=== PATIENT | male | born 1950 | race Caucasian/White ===

== ENCOUNTER 2024-02-12 15:19 | Outpatient (OUT) | payer MEDICARE, SELFPAY ==
--- NOTE | 2024-02-12 15:20 | US_ITS ---
The [address] [address] Patient Name: AIRAM ANTONIO MRN: [id number] date: 1950 Sex: M Assigned Patient Location: US Current Patient Location: US Accession/Order Number: [id number] Exam Date: 02/12/2024 16:55 Report Date: 02/12/2024 18:30 At the request of: MO TREJO Procedure: US venous doppler LE RT CLINICAL DATA: Leg pain and swelling PROCEDURE: Right lower extremity venous duplex ultrasound. TECHNIQUE: Lazaro-scale, color flow, and waveform spectral analysis was performed of the right lower extremity. FINDINGS: The right common femoral, profunda femoral, femoral, and popliteal veins were compressible. The saphenous vein was compressible. No venous thrombosis was seen. The veins fill with color Doppler. Augmentation was normal. US/US venous doppler LE RT IMPRESSION: 1. No acute lower extremity deep venous thrombosis. 2. No superficial venous thrombosis. Electronically authenticated by: Vibha RAMOS Date: 02/12/2024 18:30
== END 2024-02-12 15:20 | disposition home or self-care (01) ==
PROVIDERS: Visit Provider Internal Medicine Interventional Cardiology
DX: M79.604 Pain in right leg (principal)
CPT/HCPCS: 93971

== ENCOUNTER 2024-12-10 09:02 | Outpatient (OUT) | payer MEDICARE, SELFPAY ==
--- NOTE | 2024-12-10 09:00 | CA_ITS ---
Patient Name: AIRAM ANTONIO MR#: [id number] : 1950 Exam Date: 12/10/2024 Ordering Doctor: DR MO TREJO M.D. ECHOCARDIOGRAM REPORT PROCEDURE: CA ECHO DOPPLER COMPLETE INDICATIONS: Mitral valve and aortic valve stenosis, smoker, COPD, cardiac stent, hypertension COMPARISON: None. DESCRIPTION: COMPLETE ECHOCARDIOGRAM Real-time transthoracic echocardiography with 2D, M-mode, spectral and color flow Doppler performed. QUALITY: Technical quality was good. LEFT VENTRICLE: Normal chamber size. Moderate to severe concentric left ventricular hypertrophy. Normal systolic function. LV EF: Normal left ventricular ejection fraction, (60%). DIASTOLIC: Grade 2 diastolic dysfunction. ATRIAL SEPTUM: LEFT ATRIUM: Severe dilatation. RIGHT ATRIUM: Normal chamber size. RIGHT VENTRICLE: Normal chamber size. Normal right ventricular systolic function. TRICUSPID VALVE: Normal mobility and thickness. No stenosis with mild regurgitation. Doppler studies reveal mildly (35-45) elevated right sided pressures. RVSP 42 mmHg MITRAL VALVE: Mildly thickened with normal mobility. Moderate mitral valve stenosis. Mean diastolic gradient is 3.4 mmHg at a heart rate of 50 bpm. Mitral valve area by pressure half-time is 1.8 cm?. Moderate mitral annular calcification. Trivial mitral regurgitation. AORTIC VALVE: Normal trileaflet appearance. Moderately calcified aortic valve. Moderately diminished mobility. Doppler velocity suggest moderate aortic valve stenosis. DVI 0.46, SUMMER 1.3 cm?. No aortic regurgitation. AORTIC ROOT: Normal diameter and appearance. Ascending aorta and aortic arch are normal in size. PULMONIC VALVE: Normal thickness and mobility. No stenosis. Trivial regurgitation. PERICARDIUM: No evidence of pericardial effusion. IVC: Not well visualized. PLEURA: CONCLUSION: 1. Moderate to severe concentric ventricular hypertrophy with normal systolic function. Estimated LVEF is 60%. 2. Normal right ventricular size and systolic function. 3. Grade 2 diastolic dysfunction. 4. Moderate aortic valve stenosis. 5. Moderate mitral valve stenosis. 6. Severe left atrial dilatation. 7. Mildly elevated right-sided pressures. Adult Echocardiography Procedure Report Left Ventricle LVEDD (3.7 - 5.6 cm): 4.40 cm LVESD (2.2 - 4.0 cm): 3.05 cm LVIVS thickness (0.6 - 1.2 cm): 1.57 cm LVPW thickness (0.5 - 1.0 cm): 1.36 cm e': 0.07 m/s E - e': 17.62 LVOT Max Gradient: 3.53 mm[Hg] LVOT Area (cm2): 0.94 m/s Peak Velocity (LVOT): 0.94 m/s Mean Velocity (LVOT): 0.66 m/s LVOT Diameter 1.9 cm Left Atrium LA Volume Index (2D A2C): 50.93 ml/m2 Left Atrium Systolic Dimension: 4.39 cm Mitral Valve MV E to A Ratio: 0.99 Mitral Valve A-Wave Peak Velocity: 1.25 m/s Mitral Valve E-Wave Peak Velocity: 1.24 m/s Right Ventricle Aorta AO Root Diam: 3.45 cm Ascending Ao Diam: 3.25 cm Aortic Valve AoV Area (Peak Charli): 1.89 cm2, 1.96 cm2 AoV Area (VTI): 1.99 cm2, 2.39 cm2 Peak Velocity(Antegrade Flow): 1.98 m/s, 1.78 m/s, 2.05 m/s Peak Gradient(Antegrade Flow): 15.75 mm[Hg], 12.71 mm[Hg], 16.89 mm[Hg] Mean Velocity(Antegrade Flow): 1.19 m/s, 1.22 m/s, 1.29 m/s Mean Gradient(Antegrade Flow): 6.99 mm[Hg], 6.83 mm[Hg], 8.12 mm[Hg] Velocity Time Integral: 43.78 cm, 43.19 cm, 52.68 cm Tricuspid Valve Peak Velocity (Regurgitant Flow): 2.89 m/s Pulmonic Valve Mean Gradient: 3.22 mm[Hg] Mean Velocity: 0.83 m/s Peak Velocity: 1.25 m/s, 1.11 m/s Peak Gradient: 6.20 mm[Hg], 4.92 mm[Hg] Right Atrium Right Atrium Systolic Pressure: 50.56 ml, 50.56 ml Dictated by: Gerhard Hess M.D. on 12/10/2024 at 17:37 Approved by: Gerhard Hess M.D. on 12/10/2024 at 17:46
--- OUTSIDE RECORDS SUMMARY | 2024-12-10 09:21 | XMS_ITS | CCD ---
Author Organization [facility] ion [facility] Care Team Providers Care Director Internal Audit Name Role Phone Forest Ramires~[phone] UNKNOWN Unavailable Unavailable BACK, MARC~[phone] UNKNOWN Unavailable U navailable PHYSICIAN, DEFAULT Unavailable Unavailable PHYSICIAN, DEFAULT Unavailable Unavailable BACK, MARC Unavailable Unavailable Jordan Harden Primary Care Provider UnavailJordan Tamayo Primary Care Provider UnavailJordan Tamayo Jr. Primary Care Provider Unavail able Susie Taylor APRN, CNP Primary Care Provider Maylin Larson Unavailable CATRINA Larson Attending Provider NON STAFF Primary Care Provider UnavailDO Alexus Duval Emergency Provider MD Cong Cesar Admit Provider MD Cong Cesar Attending Provider [phone] Conner White APRN, CNP Primary Care Provider Conner White APRN, CNP Primary Care Provider DR VANDANA OLMEDO Primary Care Unavailable BENTLEY PATEL Consulting Unavailable BENTLEY PATEL Admitting Unavailable BENTLEY PATEL Attending Unavailable CELIA SWIFT Consulting Unavailable [facility] Admitting Unavailable [place] Attending Unavailable DR VANDANA OLMEDO Primary Care Unavailable [place], [facility] Consulting Unavailable [place], [facility] Admitting Unavailable [place], EHAB Attending Unavailable DR VANDANA OLMEDO Primary Care Unavailable [place], EHAB Consulting Unavailable TOMÁS, DR GLENNY Dalton Consulting Unavailable NON STAFF Primary Care Unavailable Larson, Maylin Admitting Unavailable Larson, Maylin Attending Unavailable Cong, Cesar Admitting Unavailable Cong, Cesar Attending Unavailable Mischljag, Norma Consulting Unavailable NON STAFF Primary Care Unavailable Franklin Crowder Consulting Unavailable Bowie, Ted Consulting Unavailable Pj Castaneda Consulting Unavail able Halie, Mansi Consulting Unavailable Keanu Diaz Consulting Unavailab Kell Lopez Consulting Unavailable Del Toro, Mariel Consulting Unavailable Piter, Rosangela Najeeb Consulting Unavailab Debra De La Cruz Consulting Unavailable Unavailable Primary Care Provider UnavailRAMSEY Rodriguez Attending Unavailable Dalton ENERGY MANAGER - ENGINEERING PROGRAM ANALYST, Conner M Primary Care Provider Dalton ENERGY MANAGER - ENGINEERING PROGRAM ANALYST, Conner M Primary Care Provider STEPHANIE, CONNER M Referring Unavailable STEPHANIE, CONNER M Primary Care Unavailable STEPHANIE, CONNER M Referring Unavailable STEPHANIE, CONNER M Primary Care Unavailable DENNIS MINA Attending Unavailable STEPHANIE, CONNER M Primary Care Unavailable LINCOLN, ERWIN Montano Admitting Unavailable LINCOLN, ERWIN Montano Attending Unavailable STEPHANIE, CONNER M Primary Care Unavailable STEPHANIE, CONNER M Referring Unavailable STEPHANIE, CONNER M Primary Care Unavailable STEPHANIE, CONNER M Referring Unavailable STEPHANIE, CONNER M Primary Care Unavailable STEPHANIE, CONNER M Referring Unavailable STEPHANIE, CONNER M Primary Care Unavailable STEPHANIE, CONNER M Referring Unavailable STEPHANIE, CONNER M Primary Care Unavailable STEPHANIE, CONNER M Referring Unavailable STEPHANIE, CONNER M Primary Care Unavailable STEPHANIE, CONNER M Primary Care Unavailable STEPHANIE, CONNER M Referring Unavailable STEPHANIE, CONNER M Referring Unavailable STEPHANIE, CONNER M Primary Care Unavailable [facility], [facility] Attending Unavailable [place], [facility] Attending Unavailable Allergies Allergy Classification Reported Allergen(s) Allergy Type Date of Onset Reaction(s) Facility (2 sources) Simvastatin; Translations: [SIMVASTATIN] Drug Allergy 3 [facility] (1 source) Simvastatin Propensity to adverse reactions to drug 3 [employer] Work Phone: (4 sources) Simvastatin Drug Allergy 3 Other (See Comments) [facility] Medications Current Medications Medication Drug Class(es) Dates Sig (Normalized) Sig (Original) acetaminophen 325 mg oral tablet (1 source) Start: 08-27-2019 650 mg, Oral, EVERY 4 HOURS PRN, Fever, For temp greater than 100.5 F (38 C), Starting Mon08/27/19 at 0117 Maximum dose of acetaminophen is 4000 mg from all sources in 24 hours. albuterol 0.83 mg/ml inhalation solution (20 sources) beta2-Adrenergic Agonist Start: 12-05-2023 albuterol (PROVENTIL) (2.5 MG/3ML) 0.083% nebulizer solution Indications: COPD mixed type (HCC) Take 3 mLs by nebulization every 4 hours as needed for Wheezing 120 each 1 12/05/2023 Active Start: 05-30-2023 take 2 puff(s) by inhalation twice daily as needed for wheezing albuterol sulfate HFA (PROVENTIL;VENTOLIN;PROAIR) 108 (90 Base) MCG/ACT inhaler Inhale 2 puffs into the lungs 2 times daily as needed for Wheezing or Shortness of Breath 1 each 1 05/30/2023 Active Start: 07-11-2020 Albuterol Sulf ate Active 1.25 MG CNTNEBULIZ Q4H July 11, 2020 1:00am Start: 08-28-2019 albuterol (PRO VENTIL) (2.5 MG/3ML) 0.083% nebulizer solution Take 3 mLs by nebulization every 4 hours as needed for Wheezing 120 each 1 08/28/2019 Active Start: 08-28-2019 take 2 puff(s) by inhalation twice daily as needed for wheezing albuterol sulfate HFA 108 (90 Base) MCG/ACT inhaler Inhale 2 puffs into the lungs 2 times daily as needed for Wheezing or Shortness of Breath 1 Inhaler 1 08/28/2019 Active Start: 08-28-2019 albuterol (Kwame tolin HFA) 108 (90 Base) MCG/ACT Aero Soln inhaler Inhale 90 mcg daily. 0 08/28/2019 Active Start: 08-27-2019 2.5 mg, Nebuli zation, EVERY 2 HOURS PRN, Wheezing, Starting Mon08/27/19 at 0117 Start: 09-10-2013 End: 08-26-2019 take 2 puff(s) by inhalation twice daily as needed ALBUTEROL SULFATE HFA IN Inhale 2 puffs into the lungs 2 times daily as needed 0 09/10/2013 08/26/2019 Discontinued (LIST CLEANUP) take 2 puff(s) by inhalation every four hours as needed ProAir HFA 108 (90 Base) MCG/ACT 2 puffs as needed Inhalation every 4 hrs Active Albuterol Sulfate (Ventolin Hfa) 90 mcg/actuation Hfa Aerosol Inhaler (3 sources) Start: 08-11-2017 take 1 puff(s) by inhalation every four to six hours Albuterol Sulfate (Ventolin Hfa) 90 mcg/actuation Hfa Aerosol Inhaler Active 2 PUFF INHALATION EVERY 4-6 HOURS August 11, 2017 1:00am albuterol sulfate HFA 108 (90 Base) MCG/ACT inhaler (3 sources) Start: 08-28-2019 take 2 puff(s) by inhalation twice daily as needed for wheezing albuterol sulfate HFA 108 (90 Base) MCG/ACT inhaler Inhale 2 puffs into the lungs 2 times daily as needed for Wheezing or Shortness of Breath 1 Inhaler 1 08/28/2019 Active amLODIPine 10 mg oral tablet (20 sources) Dihydropyridine Calcium Channel Kell Start: 08-11-2017 take 1 tablet by mouth once daily for hypertension amLODIPine (NORVASC) 10 MG tablet Indications: Primary hypertension , Coronary artery disease 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 angina pectoris , COPD mixed type (HCC) Take 1 tablet by mouth daily For hypertension , hx CAD 90 tablet 3 12/05/2023 Active azithromycin 500 mg oral tablet (2 sources) Macrolide Antimicrobial Start: 08-28-2019 End: 08-31-2019 take 1 tablet by mouth once daily azithromycin (ZITHROMAX) 500 MG tablet Take 1 tablet by mouth daily for 3 days 1 packet 0 08/28/2019 08/31/2019 Active calcium chloride 0.0014 meq/ml / potassium chloride 0.004 meq/ml / sodium chloride 0.103 meq/ml / sodium lactate 0.028 meq/ml injectable solution (1 source) Start: 05-08-2024 IntraVENous, at 100 mL/hr, CONTINUOUS, Starting on Mon05/08/24 at 1030, Pre-op (day of surgery) carvedilol 25 mg oral tablet (20 sources) alpha-Adrenergic Kell, beta-Adrenergic Kell Start: 08-02-2024 take 1 tablet by mouth twice daily carvedilol (COREG) 25 MG tablet Take 1 tablet by mouth 2 times daily Coronary artery disease 90 tablet 1 08/02/2024 Active Start: 10-10-2023 take 1 tablet by michael th twice daily carvedilol (COREG) 25 MG tablet Take 1 tablet by mouth 2 times daily Coronary artery disease 90 tablet 3 10/10/2023 Suspended Start: 10-06-2021 take 2 tablets by mo uth twice daily carvedilol (COREG) 12.5 MG tablet Take 2 tablets by mouth 2 times daily 60 tablet 2 10/06/2021 Active Start: 07-11-2020 take 25 mg by mouth twice orly y Carvedilol Active 25 MG PO Twice daily July 11, 2020 1:00am Start: 08-27-2019 take 12.5 mg by mout h twice daily at mealtime 12.5 mg, Oral, 2 TIMES DAILY WITH MEALS, First dose on Mon08/27/19 at 0800 Administer with food to minimize the risk of orthostatic hypotension Start: 08-11-2017 End: 07-11-2020 take 2.5 mg by mouth twice daily Carvedilol Discontinu ed 2.5 MG PO Twice daily August 11, 2017 1:00am July 11, 2020 12:23pm take 1 tablet by michael th once daily carveDILOL 12.5 MG tablet Take 12.5 mg by mouth daily. 0 Active Carvedilol Activ e cholecalciferol 0.05 mg oral capsule (11 sources) Vitamin D Start: 05-25-2023 take 1 capsule by mouth once daily Cholecalciferol (VITAMIN D3) 50 MCG (1999 UT) CAPS Take 1 capsule by mouth daily 30 capsule 3 05/25/2023 Active Cholecalciferol (VITAMIN D3) 50 MCG (1999 UT) CAPS Take by mouth daily 0 Active ciprofloxacin 250 mg oral tablet (1 source) Quinolone Antimicrobial Start: 02-21-2023 End: 02-28-2023 take 1 tablet by mouth twice daily for urinary tract infection ciprofloxacin (CIPRO) 250 MG tablet Take 1 tablet by mouth 2 times daily for 7 days For UTI and early diverticulitis 14 tablet 0 02/21/2023 02/28/2023 Active cloNIDine hydrochloride 0.1 mg oral tablet (20 sources) Central alpha-2 Adrenergic Agonist Start: 03-26-2024 take 0.2 mg by mouth once 0.2 mg, Oral, ONCE, 1 dose, On Mon03/26/24 at 1100 Start: 01-27-2022 take 1 tablet by michael th twice daily for hypertension cloNIDine (CATAPRES) 0.2 MG tablet Indications: Primary hypertension , 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 take 1 tablet by mouth once orly y cloNIDine (CATAPRES) 0.2 MG tablet Take 1 tablet by mouth daily 0 Active cloNIDine HCl Ac tive 0.4 ml enoxaparin sodium 100 mg/ml prefilled syringe (1 source) Low Molecular Weight Heparin Start: 08-27-2019 enoxaparin (LOVENOX) injection 40 mg furosemide 20 mg oral tablet (16 sources) Loop Diuretic Start: 06-14-2024 take 1 tablet by mouth once daily furosemide (LASIX) 20 MG tablet Take 1 tablet by mouth daily 30 tablet 06/14/2024 Active Start: 05-24-2022 furosemide (LA SIX) 20 MG tablet hydrALAZINE hydrochloride 100 mg oral tablet (20 sources) Arteriolar Vasodilator Start: 12-05-2023 take 1.5 tablets by mouth three times daily hydrALAZINE (APRESOLINE) 100 MG tablet Indications: Primary hypertension , Coronary artery disease 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 angina pectoris Take 1.5 tablets by mouth 3 times daily 270 tablet 1 12/05/2023 Active Start: 07-11-2020 hydrALAZINE (A PRESOLINE) injection 10 mg Start: 08-27-2019 take 100 mg by mouth three times daily 100 mg, Oral, 3 TIMES DAILY, First dose on Mon08/27/19 at 0900 Start: 08-26-2019 10 mg, Intrave nous, EVERY 6 HOURS PRN, High Blood Pressure, SBP above 160, Starting Mon08/27/19 at 0117 Start: 09-30-2014 take 100 mg by mouth three times daily Hydralazine Active 100 MG PO Three times daily July 11, 2020 1:00am take 1 tablet by michael th twice daily hydrALAZINE 100 MG tablet Take 100 mg by mouth 2 times daily. 0 Active levoFLOXacin 500 mg oral tablet (2 sources) Quinolone Antimicrobial Start: 08-27-2019 500 mg, Oral, DAILY, First d ose on Mon08/27/19 at 0900 Do not take with dairy products or calcium-fortified juices. Tube feeding (TF) interaction, obtain physician order to manage. Recommend holding TF for 2 hrs before and 2 hrs after dose. Due to decreased absorption do not give by J tube. 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 methylPREDNISolone sodium (SOLU-MEDROL) injection 40 mg (1 source) Start: 08-27-2019 End: 08-28-2019 methylPREDNISolone sodium (SOLU-MEDROL) injection 40 mg nirmatrelvir/ritonavir (PAXLOVID, 300/100,) 20 x 150 MG & 10 x 100MG TBPK (1 source) Start: 03-31-2022 End: 04-05-2022 nirmatrelvir/ritonavir (PAXLOVID, 300/100,) 20 x 150 MG & 10 x 100MG TBPK Indications: URI, acute , Cough with exposure to COVID-19 virus Take 3 tablets (two 150 mg nirmatrelvir and one 100 mg ritonavir tablets) by mouth every 12 hours for 5 days. 30 tablet 0 03/31/2022 04/05/2022 Active nitroglycerin 0.4 mg sublingual tablet (7 sources) Nitrate Vasodilator Start: 12-17-2013 nitroGLYCERIN (NITROSTAT) 0.[address] 1 tablet under the tongue every 5 minutes as needed. 25 tablet 1 12/17/2013 Active NONFORMULARY (1 source) NONFORMULARY Blo od thinner 0 Active prasugrel 10 mg oral tablet (6 sources) P2Y12 Platelet Inhibitor Start: 08-27-2019 take 10 mg by mouth once daily 10 mg, Oral, DAILY, First dose on Mon08/27/19 at 0900 predniSONE 10 mg oral tablet (4 sources) Start: 08-02-2022 take 2 tablets by mouth once daily at mealtime, then take 1 tablet by mouth once daily predniSONE (DELTASONE) 10 MG tablet Indications: Acute pain of right knee , Primary osteoarthritis of right knee Take 2 pills by mouth daily with food x 4 days then decrease to 1 pill daily x 4 days for osteoarthritis/effusio n or right knee 10 tablet 0 08/02/2022 Active Start: 08-28-2019 End: 09-02-2019 take 1 tablet by mouth once daily predniSONE (DELTASONE) 20 MG tablet Take 1 tablet by mouth daily for 5 days 5 tablet 0 08/28/2019 09/02/2019 Active tamsulosin hydrochloride 0.4 mg oral capsule (5 sources) alpha-Adrenergic Kell Start: 10-01-2024 take 1 capsule by mouth once daily tamsulosin (FLOMAX) 0.4 MG capsule Take 1 capsule by mouth daily For BPH with LUTS 30 capsule 1 10/01/2024 Active Start: 05-18-20[address] [facility] once daily tamsulosin (FLOMAX) 0.4 MG capsule Take 1 capsule by mouth daily For difficulty urinating 90 capsule 3 05/18/2023 Suspended Start: 02-21-2023 take 1 capsule by mo [facility] once daily tamsulosin (FLOMAX) 0.4 MG capsule Take 1 capsule by mouth daily For difficulty urinating 30 capsule 0 02/21/2023 Active thiamine 50 mg oral tablet (3 sources) Start: 10-06-2021 take 1 tablet by mouth once daily thiamine 50 MG tablet Indications: Mild alcohol use disorder, in controlled environment Take 1 tablet by mouth daily Mild alcohol use 14 tablet 0 10/06/2021 Active Completed/Discontinued Medications Medication Drug Class(es) Dates Sig (Normalized) Sig (Original) albuterol 0.833 mg/ml / ipratropium bromide 0.167 mg/ml inhalant solution (3 sources) Anticholinergic, beta2-Adrenergic Agonist Start: 08-29-2019 End: 08-29-2019 ipratropium-albute rol (DUONEB) 0.5-2.5 (3) MG/3ML nebulizer solution Start: 08-27-2019 1 ampule, Inha lation, EVERY 4 HOURS WHILE AWAKE, First dose on Mon08/27/19 at 0900 Start: 08-26-2019 End: 08-26-2019 ipratropium-albuterol (DUONE B) nebulizer solution 1 ampule aspirin 81 mg chewable tablet (20 sources) Platelet Aggregation Inhibitor, Nonsteroidal Anti-inflammatory Drug Start: 02-14-2021 End: 02-14-2021 aspirin chewable tablet 324 mg Start: 07-11-2020 End: 07-11-2020 aspirin chewable tablet 324 mg Start: 08-11-2017 take 1 tablet by mouth once da ra Aspirin (Aspir-81) 81 mg Tablet,Delayed Release (Dr/Ec) Active 81 MG PO Daily August 11, 2017 1:00am atorvastatin 40 mg oral tablet (20 sources) HMG-CoA Reductase Inhibitor Start: 02-09-2024 take 1 tablet by mouth once daily for hyperlipidemia atorvastatin (LIPITOR) 40 MG tablet Take 1 tablet by mouth daily For high cholesterol and heart disease 90 tablet 1 02/09/2024 Suspended Start: 07-12-2020 End: 01-27-2022 take 40 mg by mouth once daily Atorvastatin Active 40 MG PO Daily January 27, 2022 12:00am Start: 08-11-2017 End: 09-30-2019 take 20 mg by mouth once daily Atorvastatin Discontinu ed 20 MG PO Daily August 11, 2017 1:00am September 30, 2019 1:08pm take 1 tablet by michael th every twenty-four hours Atorvastatin Calcium 10 MG 1 tablet Orally Once a day Active famotidine 20 mg oral tablet (3 sources) Histamine-2 Receptor Antagonist Start: 08-27-2019 End: 07-11-2020 famotidine (PEPCID) 20 MG tablet Take 20 mg by mouth 0 08/27/2019 07/11/2020 Discontinued (LIST CLEANUP) gadobenate dimeglumine (MULTIHANCE) injection 20 mL (1 source) Start: 09-12-2022 End: 09-12-2022 gadobenate dimeglumine (MULTIHANCE) injection 20 mL hydroCHLOROthiazide 12.5 mg oral capsule (4 sources) Thiazide Diuretic Start: 08-11-2017 End: 07-11-2020 take 100 mg by mouth twice daily Hydrochlorothiazide Discontinued 100 MG PO Twice daily August 11, 2017 1:00am July 11, 2020 12:23pm hydroCHLOROthiaz rick Active loratadine 10 mg oral tablet (4 sources) Start: 08-11-2017 End: 07-11-2020 take 10 mg by mouth once daily Loratadine Discontinued 10 MG PO Daily August 11, 2017 1:00am July 11, 2020 12:25pm losartan potassium 100 mg oral tablet (3 sources) Angiotensin 2 Receptor Kell Start: 08-11-2017 End: 07-11-2020 take 100 mg by mouth once daily Losartan Discontinued 100 MG PO Daily August 11, 2017 1:00am July 11, 2020 12:25pm methylPREDNISolone 125 mg injection (1 source) Corticosteroid Start: 08-26-2019 End: 08-26-2019 methylPREDNISolone sodium (SOLU-MEDROL) injection 125 mg Start: 08-26-2019 End: 08-26-2019 methylPREDNISolone sodium (S PATRICK-MEDROL) injection 125 mg 2 ml ondansetron 2 mg/ml injection (5 sources) Serotonin-3 Receptor Antagonist Start: 08-27-2019 End: 02-14-2021 ondansetron (ZOFRAN) 4 MG/2ML injection Infuse 4 mg intravenously 0 08/27/2019 02/14/2021 Discontinued (LIST CLEANUP) potassium chloride 10 meq extended release oral tablet (1 source) Start: 08-27-2019 End: 08-27-2019 potassium chloride (KLOR-CON) extended release tablet 40 mEq Start: 08-27-2019 End: 08-27-2019 potassium chloride (KLOR-CON ) extended release tablet 40 mEq 50 ml sodium chloride 9 mg/m l injection (4 sources) Start: 07-11-2020 End: 07-11-2020 0.9 % sodium chloride bolus Start: 08-27-2019 10 mL, Intrave nous, EVERY 12 HOURS SCHEDULED (2 times per day), First dose on Mon08/27/19 at 0900 Start: 08-27-2019 take 10 mL intraveno us route once as needed 10 mL, Intravenous, PRN, Line Care, After every IV line use, Starting Mon08/27/19 at 0117 Start: 08-26-2019 End: 08-27-2019 0.9 % sodium chloride infusi on Problems Active Problems Problem Classification Problem Date Documented Da te Episodic/Chronic Acute myocardial infarction (20 sources) Myocardial infarction; Translations: [Non-ST elevation (NSTEMI) myocardial infarction] Onset: 04-07-2021 04-07-2021 Chronic Anxiety disorders (20 sources) Panic attack; Translations: [Panic disorder [episodic paroxysmal anxiety]] 10-15-2010 Chronic Cardiac dysrhythmias (2 sources) Bradycardia, unspecified; Translations: [Bradycardia, unspecified] Onset: 10-16-2024 Episodic Cataract (2 sources) Age-related nuclear cataract of right eye; Translations: [Age-related nuclear cataract, right eye] Onset: 02-04-2020 02-04-2020 Chronic Conditions associated with dizziness or vertigo (3 sources) Dizziness; Translations: [Dizziness and giddiness] 09-30-2019 Episodic Coronary atherosclerosis and other heart disease (20 sources) Coronary arteriosclerosis; Translations: [Acute coronary syndrome] Onset: 07-30-2017 07-30-2017 Chronic Diabetes mellitus without complication (1 source) Prediabetes; Translations: [Prediabetes] Episodic Disorders of lipid metabolism (20 sources) Hyperlipidemia; Translations: [Hyperlipidemia, unspecified] Onset: 10-15-2010 10-15-2010 Chronic Essential hypertension (20 sources) Hypertensive disorder; Translations: [Essential (primary) hypertension] Onset: 07-30-2017 Resolved: 01-25-2022 07-30-2017 Chronic Genitourinary symptoms and ill-defined conditions (2 sources) Dribbling of urine; Translations: [Post-void dribbling] Onset: 10-01-2024 10-01-2024 Chronic Genitourinary symptoms and ill-defined conditions (3 sources) Increased frequency of urination; Translations: [Frequency of micturition] Onset: 10-01-2024 Episodic Heart valve disorders (3 sources) Rheumatic tricuspid insufficiency; 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] Onset: 09-05-2022 Chronic Hyperplasia of prostate (9 sources) Benign prostatic hypertrophy with outflow obstruction; Translations: [Benign prostatic hyperplasia with lower urinary tract symptoms] Onset: 04-13-2023 04-13-2023 Chronic Hypertension with complications and secondary hypertension (9 sources) Hypertensive urgency ; Translations: [Hypertensive urgency] Onset: 08-10-2022 07-11-2020 Chronic Nutritional deficiencies (2 sources) Vitamin D deficiency; Translations: [Vitamin D deficiency, unspecified] Onset: 02-06-2024 Chronic Osteoarthritis (4 sources) Osteoarthritis of right knee joint; Translations: [Unilateral primary osteoarthritis, right knee] Onset: 11-01-2022 Chronic Other aftercare (1 source) 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; Translations: [LAN ENGINEER CURRENT USE OF ASPIRIN] Onset: 11-01-2022 Episodic Other aftercare (1 source) Other intermodal customer service (current) drug therapy; Translations: [OTH LAN ENGINEER CURRENT DRUG THERAPY] Onset: 11-01-2022 Episodic Other circulatory disease (1 source) H/O: hypertension; Translations: [Personal history of other diseases of the circulatory system] Episodic Other connective tissue disease (4 sources) Thigh pain; Translations: [Pain in left thigh] Episodic Other connective tissue disease (3 sources) Muscle pain; Translations: [Myalgia, unspecified site] Episodic Other connective tissue disease (1 source) Enthesopathy; Translations: [Enthesopathy, unspecified] Episodic Other lower respiratory disease (1 source) Dyspnea; Translations: [Shortness of breath] Episodic Other nervous system disorders (20 sources) Cataplexy; Translations: [Narcolepsy with cataplexy] Onset: 04-15-2013 04-15-2013 Chronic Other nervous system disorders (3 sources) Other chronic pain; Translations: [Other chronic pain] Onset: 08-19-2024 Chronic Other non-traumatic joint disorders (1 source) Shoulder pain; Translations: [Pain in left shoulder] Episodic Other non-traumatic joint disorders (1 source) Pain in right knee; Translations: [Pain in joint, lower leg] Episodic Other non-traumatic joint disorders (1 source) Chronic ankle pain; Translations: [Pain in right ankle and joints of right foot] 08-19-2024 Episodic Other non-traumatic joint disorders (3 sources) Pain in right ankle and joints of right foot; Translations: [Pain in right ankle and joints of right foot] Onset: 08-19-2024 Episodic Other nutritional; endocrine; and metabolic disorders (2 sources) Body mass index 40+ - severely obese; Translations: [Body mass index (BMI) 40.0-44.9, adult] Chronic Other nutritional; endocrine; and metabolic disorders (2 sources) Body mass index (BMI) 40.0-44.9, adult; Translations: [Body mass index (BMI) 40.0-44.9, adult] Onset: 01-25-2022 Resolved: 01-25-2022 Chronic Other screening for suspected conditions (not mental disorders or infectious disease) (19 sources) Patient encounter status; Translations: [Encounter for screening for diseases of the blood and blood-forming organs and certain disorders involving the immune mechanism] Onset: 02-06-2024 Resolved: 06-07-2024 Episodic Other upper respiratory infections (20 sources) Chronic sinusitis; Translations: [Chronic sinusitis, unspecified] 03-16-2015 Chronic Other upper respiratory infections (1 source) Acute upper respiratory infection; Translations: [Acute upper respiratory infection, unspecified] Episodic Pneumonia (except that caused by tuberculosis or sexually transmitted disease) (1 source) Bronchopneumonia; Translations: [Bronchopneumonia] Episodic Residual codes; unclassified (4 sources) Obstructive sleep apnea syndrome; Translations: [Obstructive sleep apnea (adult) (pediatric)] 01-27-2022 Chronic Residual codes; unclassified (5 sources) Obstructive sleep apnea (adult) (pediatric); Translations: [Obstructive sleep apnea (adult)(pediatric)] Onset: 01-25-2022 Resolved: 01-25-2022 Chronic Residual codes; unclassified (1 source) Sleep apnea, unspecified; Translations: [SLEEP APNEA UNSPECIFIED] Onset: 11-01-2022 Chronic Residual codes; unclassified (1 source) Dependence on other enabling machines and devices; Translations: [Dependence on other enabling machines and devices] Onset: 01-27-2022 Chronic Residual codes; unclassified (1 source) Idiopathic sleep related non-obstructive alveolar hypoventilation; Translations: [Idiopathic sleep related nonobstructive alveolar hypoventilation] 01-25-2024 Chronic Residual codes; unclassified (1 source) Idiopathic sleep related nonobstructive alveolar hypoventilation; Translations: [Idiopathic sleep related non-obstructive alveolar hypoventilation] 01-25-2024 Chronic Rheumatoid arthritis and related disease (1 source) Ankylosing spondylitis; Translations: [Ankylosing spondylitis lumbar region] Chronic Spondylosis; intervertebral disc disorders; other back problems (1 source) Lumbar radiculopathy; Translations: [Radiculopathy, lumbar region] Episodic Sprains and strains (1 source) Strain of thoracic region; Translations: [Strain of muscle and tendon of back wall of thorax, initial encounter] Episodic Syncope (20 sources) Syncope; Translations: [Syncope and collapse] Onset: 11-02-2022 08-11-2017 Episodic Past or Other Problems Problem Classification Problem Date Documented Da te Episodic/Chronic Abdominal pain (20 sources) Suprapubic pain; Translations: [Pelvic and perineal pain] Onset: 05-02-2012 05-02-2012 Episodic Chronic obstructive pulmonary disease and bronchiectasis (20 sources) Acute exacerbation of chronic obstructive airways disease; Translations: [Chronic obstructive pulmonary disease with (acute) exacerbation] Onset: 08-26-2019 Resolved: 03-15-2023 08-26-2019 Chronic Inflammatory conditions of male genital organs (20 sources) Acute prostatitis; Translations: [Acute prostatitis] Onset: 05-02-2012 Resolved: 05-03-2012 05-03-2012 Episodic Nonspecific chest pain (20 sources) Chest pain; Translations: [Chest pain, unspecified] Onset: 08-08-2012 07-30-2017 Episodic Other connective tissue disease (2 sources) Other specified soft tissue disorders; Translations: [Other specified soft tissue disorders] Onset: 02-12-2024 Episodic Residual codes; unclassified (1 source) Other amnesia; Translations: [Other amnesia] Onset: 02-06-2024 Episodic Unclassified (9 sources) Onset: 12-02-2023 12-02-2023 Results Test Name Value Interpretation Reference Range Facility Office Visiton 10-16-2024 Follow-up visit [id number] Keanu Antonio 1950 M Date Provider Department Center 10/16/2024 Abdulkadir-MO [facility]RE[facility] Family History Problem Relation Age of Onset Other Mother Family Status - Relation Status Age at Mother Level of Service:03495 ID OFFICE/OUTPATIENT ESTABLISHED MOD MDM 30 MIN Normal [facility] Cult,Urineon 10-03-2024 Cult,Urine Specimen Description .CLEAN CATCH URINE Special Requests Site: Urine Culture NO GROWTH Report Status FINAL 10/03/2024 Normal [facility] Comment on above: Performed By: #### U RC #### [id number] [place], [place] [id number] [employer]: Alfred Ozuna MD [facility] [address] [place] [address] [place] [address] [employer] Operator: Jose Carlos MD Comp Metabolic Profon 2024 Albumin [Mass/Vol] 4.0 g/dL Normal 3.5-5.2 [facility] Comment on above: Performed By: #### C DP, CP #### [facility] [address] [place] [address] [place] [address] [employer] Operator: Jose Carlos MD #### PSAS #### [address] [place] [address] [employer]: Alfred Ozuna MD Albumin/Glob Ratio 1.3 Normal 1.0-2.5 [facility] Comment on above: Performed By: #### C DP, CP #### [address] [place] [address] [employer]: Jose Carlos MD #### PSAS #### [address] [address] [place] [address] [employer]: Alfred Ozuna MD Alkaline Phos 55 U/L Normal 40-129 [facility] Comment on above: Performed By: #### C DP, CP #### [facility] [address] [place], [place] [id number] [employer]: Jose Carlos MD #### PSAS #### [address] [address] [employer]: Alfred Ozuna MD ALT [Catalytic activity/Vol] 21 U/L Normal 10-50 [facility] Comment on above: Performed By: #### C DP, CP #### [facility] [address] [place], [place] [address] [employer]: Jose Carlos MD #### PSAS #### [address] [address] [employer]: Alfred Ozuna MD Anion gap [Moles/Vol] 9 mmol/L Normal 9-16 [facility] Comment on above: Performed By: #### C DP, CP #### [address] [place], [place] [address]23[address] [employer]: Jose Carlos MD #### PSAS #### [address] [address] [employer]: Alfred Ozuna MD AST [Catalytic activity/Vol] 25 U/L Normal 10-50 [facility] Comment on above: Performed By: #### C DP, CP #### [facility] [address] [place] [address] [employer] Operator: Jose Carlos MD #### PSAS #### [address] [address] [employer]: Alfred Ozuna MD Bilirubin [Mass/Vol] 0.3 mg/dL Normal 0.00-1.20 [facility] Comment on above: Performed By: #### C DP, CP #### [facility] [address] [place], [place] 6878883 [employer]: Jsoe Carlos MD #### PSAS #### [address] [id number] [employer] Operator: Alfred Ozuna MD BUN/CRE Ratio 14 Normal 9-20 [facility] Comment on above: Performed By: #### C DP, CP #### [facility] [address] [place], [place] 7788183 [employer] Operator: Jose Carlos MD #### PSAS #### [address] [address] [employer]: Alfred Ozuna MD Calcium [Mass/Vol] 9.5 mg/dL Normal 8.6-10.4 [facility] Comment on above: Performed By: #### C DP, CP #### [facility] [address] [place], [place] [phone] [employer]: Jose Carlos MD #### PSAS #### [address] [address] [employer]: Alfred Ozuna MD Chloride [Moles/Vol] 104 mmol/L Normal 98-107 [facility] Comment on above: Performed By: #### C DP, CP #### [facility] [address] [place], [place] 8[address]83 [employer]: Jose Carlos MD #### PSAS #### [address] [address] [employer]: Alfred Ozuna MD CO2 [Moles/Vol] 26 mmol/L Normal 20-31 [facility] Comment on above: Performed By: #### C DP, CP #### [address] [place], [place] [id number] [employer] Operator: Jose Carlos MD #### PSAS #### [facility] [address] [place], [place] [phone] [employer] Operator: Alfred Ozuna MD Creatinine [Mass/Vol] 1.3 mg/dL High 0.70-1.20 [facility] Comment on above: Performed By: #### C COLLEEN, CP #### [address] [place], [place] 9188983 [employer]: Jose Carlos MD #### PSAS #### [id number] [place], [place] [phone] [employer] Operator: Alfred Ozuna MD GFR/1.73 sq M.predicted among non-blacks MDRD (S/P/Bld) [Vol rate/Area] 59 mL/min/{1.73_m2} Low >60 [facility] Comment on above: Result Comment: These results are not intended for use in patients <18 years of age. eGFR results are calculated without a race factor using the 2020 CKD-EPI equation. Careful clinical correlation is recommended, particularly when comparing to results calculated using previous equations. The CKD-EPI equation is less accurate in patients with extremes of muscle mass, extra-renal metabolism of creatine, excessive creatine ingestion, or following therapy that affects renal tubular secretion. Performed By: #### C COLLEEN, CP #### [address] [place], [place] [phone] [employer]: Jose Carlos MD #### PSAS #### [facility] [address] [place], [place] 401[address] [employer]: Alfred Ozuna MD Glucose [Mass/Vol] 91 mg/dL Normal 74-99 [facility] Comment on above: Performed By: #### C COLLEEN, CP #### [address] [place], [place] 4371383 [employer]: Jose Carlos MD #### PSAS #### [facility] [address] [place], [place] 7505408 [employer]: Alfred Ozuna MD Potassium [Moles/Vol] 4.4 mmol/L Normal 3.7-5.3 [facility] Comment on above: Performed By: #### C DP, CP #### [facility] [address] [place], [place] 0825[address] [employer]: Jose Carlos MD #### PSAS #### [address] [address] [employer]: Alfred Ozuna MD Protein [Mass/Vol] 7.1 g/dL Normal 6.6-8.7 [facility] Comment on above: Performed By: #### C DP, CP #### [address] [place], [place] 413[address] [employer]: Jose Carlos MD #### PSAS #### [address] [address] [employer]: Alfred Ozuna MD Sodium [Moles/Vol] 139 mmol/L Normal 136-145 [facility] Comment on above: Performed By: #### C DP, CP #### [address] [place], [place] 4232383 [employer]: Jose Carlos MD #### PSAS #### [address] [address] [employer] Operator: Alfred Ozuna MD Urea nitrogen [Mass/Vol] 18 mg/dL Normal 8-23 [facility] Comment on above: Performed By: #### C DP, CP #### [address] [place], [place] 0812[address] [employer] Operator: Jose Carlos MD #### PSAS #### [address] [address] [employer]: Alfred Ozuna MD [facility] Metabolic [facility] 10-02-2024 Albumin [Mass/Vol] 4 g/dL 3.5 - 5.2 g/dL [facility] Albumin/Globulin [Mass ratio] 1.3 {ratio} 1.0 - 2.5 [facility] ALP [Catalytic activity/Vol] 55 U/L 40 - 129 U/L [facility] ALT [Catalytic activity/Vol] 21 U/L 10 - 50 U/L [facility] Anion gap [Moles/Vol] 9 mmol/L 9 - 16 mmol/L [facility] AST [Catalytic activity/Vol] 25 U/L 10 - 50 U/L [facility] Bilirubin [Mass/Vol] 0.3 mg/dL 0.00 - 1.20 mg/dL [facility] Calcium [Mass/Vol] 9.5 mg/dL 8.6 - 10. 4 mg/dL [facility] Chloride [Moles/Vol] 104 mmol/L 98 - 10 7 mmol/L [facility] CO2 [Moles/Vol] 26 mmol/L 20 - 31 mmol/L [facility] Creatinine [Mass/Vol] 1.3 mg/dL High 0.70 - 1.20 mg/dL [facility] Est, Glom Filt Rate 59 Low - PINF [facility] Comment on above: These results are not intended for use in patients <18 years of age. eGFR results are calculated without a race factor using the 2020 CKD-EPI equation. Careful clinical correlation is recommended, particularly when comparing to results calculated using previous equations. The CKD-EPI equation is less accurate in patients with extremes of muscle mass, extra-renal metabolism of creatine, excessive creatine ingestion, or following therapy that affects renal tubular secretion. Glucose [Mass/Vol] 91 mg/dL 74 - 99 mg/dL [facility] Interpretation and review of laboratory results Abnormal [facility] Potassium [Moles/Vol] 4.4 mmol/L 3.7 - 5.3 mmol/L [facility] Protein [Mass/Vol] 7.1 g/dL 6.6 - 8.7 g/dL [facility] Sodium [Moles/Vol] 139 mmol/L 136 - 145 mmol/L [facility] Urea nitrogen [Mass/Vol] 18 mg/dL 8 - 23 mg/d L [facility] Urea nitrogen/Creatinine [Mass ratio] 14 mg/mg 9 - 20 [facility] PSA, Screeningon 10-02-2024 Prostatic Spec. Ag 1.81 ng/mL Normal 0.00-4.00 [facility] Comment on above: Result Comment: The [employer] ECLIA assay is used. Results obtained with different assay methods cannot be used interchangeably. Performed By: #### C DP CP #### [facility] [address] [place] [address] [employer]: Jose Carlos MD #### PSAS #### [facility] [address] [place] [address] [employer] Operator: Alfred Ozuna MD CBC with Auto Differentialon 10-01-2024 Basophils (Bld) [#/Vol] 0.03 10*3/uL [facility] Basophils/100 WBC (Bld) 1 % 0 - 2 % B [facility] Eosinophils (Bld) [#/Vol] 0.26 10*3/uL [facility] Eosinophils/100 WBC (Bld) 4 % 1 - 4 % [facility] Erythrocyte distribution width (RBC) [Ratio] 13.5 % 11.8 - 14.4 % [facility] Hematocrit (Bld) [Volume fraction] 45.4 % 40.7 - 50.3 % [facility] Hemoglobin (Bld) [Mass/Vol] 14.7 g/dL 13.0 - 17.0 g/dL [facility] Immature granulocytes (Bld) [#/Vol] [facility] Immature granulocytes/100 WBC (Bld) 0 % 0 [facility] Interpretation and review of laboratory results Abnormal [facility] Lymphocytes/100 WBC (Bld) 19 % Low 24 - 43 % [facility] Lymphocytes/100 WBC (Bld) 1.15 % [facility] MCH (RBC) [Entitic mass] 29.8 pg 25. 2 - 33.5 pg [facility] MCHC (RBC) [Mass/Vol] 32.4 g/dL 28.4 - 34.8 g/dL [facility] MCV (RBC) [Entitic vol] 92.1 fL 82.6 - 102.9 fL [facility] Monocytes/100 WBC (Bld) 10 % 3 - 12 % B on [facility] Monocytes/100 WBC (Bld) 0.64 % B on [facility] Neutrophils/100 WBC (Bld) 66 % High 36 - 65 % [facility] Nucleated RBC/100 WBC (Bld) [Ratio] 0 % 0.0 per 100 WBC [facility] Platelet mean volume (Bld) [Entitic vol] 10.4 fL 8.1 - 13.5 fL [facility] Platelets (Bld) [#/Vol] 312 10*3/uL [facility] RBC (Bld) [#/Vol] 4.93 10*6/uL 4.21 - 5.7 7 m/uL [facility] Segmented neutrophils/100 WBC (Bld) 4.04 % [facility] WBC other (Bld) [#/Vol] 6.1 B on [facility] CBC with Diffon 10-01-2024 Abs. Basophil 0.03 k/uL Normal 0.00-0.20 [facility] Comment on above: Performed By: #### C DP, CP #### [facility] [address] [place] [address] [employer]: Jose Carlos MD #### PSAS #### [address] [place] [address] [employer] Operator: Alfred Ozuna MD Abs.Imm.Granulocyte <0.03 Normal 0.00-0.30 [facility] Comment on above: Performed By: #### C DP, CP #### [facility] [address] [place], [place] 8[address]83 [employer] Operator: Jose Carlos MD #### PSAS #### [id number] [employer] Operator: Alfred Ozuna MD Abs.Neutrophil (Seg) 4.04 k/uL Normal 1.50-8.10 [facility] Comment on above: Performed By: #### C DP, CP #### [address] [place] [id number] [employer] Operator: Jose Carlos MD #### PSAS #### [id number] [employer] Operator: Alfred Ozuna MD Basophils/100 WBC (Bld) 1 % Normal 0-[address] [facility] Comment on above: Performed By: #### C DP, CP #### [address] [place] [address] [employer] Operator: Jose Carlos MD #### PSAS #### [place] [address] [employer] Operator: Alfred Ozuna MD Eosinophils (Bld) [#/Vol] 0.26 10*3/uL Normal 0.00-0.44 [facility] Comment on above: Performed By: #### C DP, CP #### [address] [place] [id number] ( [employer] Operator: Jose Carlos MD #### PSAS #### [place] [address] [employer] Operator: Alfred Ozuna MD Eosinophils/100 WBC (Bld) 4 % Normal 1-4 [facility] Comment on above: Performed By: #### C DP, CP #### [address] [place] [id number] [employer] Operator: Jose Carlos MD #### PSAS #### [address] [place], [place] 2874708 [employer] Operator: Alfred Ozuna MD Erythrocyte distribution width (RBC) [Ratio] 13.5 % Normal 11.8-14.4 [facility] Comment on above: Performed By: #### C DP, CP #### [facility] [address] [place], [place] 3970683 [employer] Operator: Jose Carlos MD #### PSAS #### [address] [phone] [employer]: Alfred Ozuna MD Hematocrit (Bld) [Volume fraction] 45.4 % Normal 40.7-50.3 [facility] Comment on above: Performed By: #### C DP, CP #### [address] [place] [id number] [employer] Operator: Jose Carlos MD #### PSAS #### [address] [phone] [employer] Operator: Alfred Ozuna MD Hemoglobin (Bld) [Mass/Vol] 14.7 g/dL Normal 13.0-17.0 [facility] Comment on above: Performed By: #### C DP, CP #### [facility] [address] [place] [address] Dr. [place] [phone] [employer] Operator: Jose Carlos MD #### PSAS #### [address] [address] [employer]: Alfred Ozuna MD Immature granulocytes/100 WBC (Bld) 0 % Normal 0 [facility] Comment on above: Performed By: #### C DP, CP #### [address] [place], [place] 0636683 [employer] Operator: Jose Carlos MD #### PSAS #### [address] [address] [employer] Operator: Alfred Ozuna MD Lymphocytes (Bld) [#/Vol] 1.15 10*3/uL Normal 1.10-3.70 [facility] Comment on above: Performed By: #### C DP, CP #### [facility] [address] [place] [address] [place] [address] [employer] Operator: Jose Carlos MD #### PSAS #### [address] [id number] [employer] Operator: Alfred Ozuna MD Lymphocytes/100 WBC (Bld) 19 % Low 24-43 [facility] Comment on above: Performed By: #### C DP, CP #### [facility] [address] [place] [address] [place] [address] [employer] Operator: Jose Carlos MD #### PSAS #### [address] [address] [employer] Operator: Alfred Ozuna MD MCH (RBC) [Entitic mass] 29.8 pg Normal 25.2-33.5 [facility] Comment on above: Performed By: #### C DP, CP #### [address] [place] [id number] [employer] Operator: Jose Carlos MD #### PSAS #### [address] [address] [employer] Operator: Alfred Ozuna MD MCHC (RBC) [Mass/Vol] 32.4 g/dL Normal 28.4-34.8 [facility] Comment on above: Performed By: #### C DP, CP #### [address] [place] [id number] [employer] Operator: Jose Carlos MD #### PSAS #### [address] [address] [employer] Operator: Alfred Ozuna MD MCV (RBC) [Entitic vol] 92.1 fL Normal 82.6-102.9 [facility] Comment on above: Performed By: #### C DP, CP #### [facility] [address] [place] [address] [place], [place] 0197783 [employer] Operator: Jose Carlos MD #### PSAS #### [address] [phone] [employer] Operator: Alfred Ozuna MD Monocytes (Bld) [#/Vol] 0.64 10*3/uL Normal 0.10-1.20 [facility] Comment on above: Performed By: #### C COLLEEN, CP #### [address] [place], [place] 1865783 [employer] Operator: Jose Carlos MD #### PSAS #### [address] [phone] [employer] Operator: Alfred Ozuna MD Monocytes/100 WBC (Bld) 10 % Normal 3-12 [facility] Comment on above: Performed By: #### C COLLEEN, CP #### [address] [place], [place] 7340783 [employer] Operator: Jose Carlos MD #### PSAS #### [address] [address] [employer] Operator: Alfred Ozuna MD Neutrophil (Seg) 66 % High 36-65 [facility] Comment on above: Performed By: #### C DP, CP #### [address] [place], [place] 9353583 [employer] Operator: Jose Carlos MD #### PSAS #### [address] [address] [employer]: Alfred Ozuna MD NRBC Automated 0.0 per 100 WBC Normal 0.0 [facility] Comment on above: Performed By: #### C DP, CP #### [facility] [address] [place] [address] [employer] Operator: Jose Carlos MD #### PSAS #### [address] [address] [employer]: Alfred Ozuna MD Platelet mean volume (Bld) [Entitic vol] 10.4 fL Normal 8.1-13.5 [facility] Comment on above: Performed By: #### C DP, CP #### [facility] [address] [place] [address] [employer] Operator: Jose Carlos MD #### PSAS #### [address] [phone] [employer] Operator: Alfred Ozuna MD Platelets (Bld) [#/Vol] 312 10*3/uL Normal 138-453 [facility] Comment on above: Performed By: #### C DP, CP #### [facility] [address] [place], [place] [phone] [employer] Operator: Jose Carlos MD #### PSAS #### [address] [address] [employer] Operator: Alfred Ozuna MD RBC (Bld) [#/Vol] 4.93 10*6/uL Normal 4.21-5.77 [facility] Comment on above: Performed By: #### C DP, CP #### [facility] [address] [place] [address] [employer] Operator: Jose Carlos MD #### PSAS #### [address] [address] [employer] Operator: Alfred Ozuna MD WBC (Bld) [#/Vol] 6.1 10*3/uL Normal 3.5-11.3 [facility] Comment on above: Performed By: #### C DP, CP #### [facility] [address] [place] [address] [employer] Operator: Jose Carlos MD #### PSAS #### [facility] [address] [place] [address] [employer] Operator: Alfred Ozuna MD XR ANKLE RIGHT (MIN 3 VIEWS) on 08-19-2024 XR ANKLE RIGHT (MIN 3 VIEWS) EXAM: XR ANKLE RIGHT (MIN 3 VIEWS) HISTORY: Chronic pain of right ankle COMPARISON: None. IMPRESSION: FINDINGS/IMPRESSION : 1. Diffuse soft tissue swelling. 2. No fracture or dislocation with particular reference to the skin marker placed over the anterior lateral right ankle. 3. 7 mm plantar spur on the calcaneus with mild plantar fascial calcification and mild ossification Achilles tendon insertion on the calcaneus. 4. Mild age expected degenerative change at the ankle mortise. Interpreted by: Tiago Lockwood Jr., MD Signed by: Tiago Lockwood Jr., MD 08/19/24 Final result Normal [facility] XR Ankle - right 3 Viewson 0 08-19-2024 FINDINGS/IMPRESSION : 1. Diffuse soft tissue swelling. 2. No fracture or dislocation with particular reference to the skin marker placed over the anterior lateral right ankle. 3. 7 mm plantar spur on the calcaneus with mild plantar fascial calcification and mild ossification Achilles tendon insertion on the calcaneus. 4. Mild age expected degenerative change at the ankle mortise. [facility] EXAM: XR ANKLE RIGHT (MIN 3 VIEWS) HISTORY: Chronic pain of right ankle COMPARISON: None. [facility] Tiago Lockwood Jr., MD - 08/19/2024 EXAM: XR ANKLE RIGHT (MIN 3 VIEWS) HISTORY: Chronic pain of right ankle COMPARISON: None. IMPRESSION: FINDINGS/IMPRESSION : 1. Diffuse soft tissue swelling. 2. No fracture or dislocation with particular reference to the skin marker placed over the anterior lateral right ankle. 3. 7 mm plantar spur on the calcaneus with mild plantar fascial calcification and mild ossification Achilles tendon insertion on the calcaneus. 4. Mild age expected degenerative change at the ankle mortise. [facility] Radiology Study observation (narrative) [facility] XR Ankle - right 3 ViewsOrde red By: Tiago Lcokwood on 08-19-2024 [facility] Work Phone: CBC with Auto Differentialon 03-26-2024 Basophils (Bld) [#/Vol] 0.03 10*3/uL [facility] Basophils/100 WBC (Bld) 0 % 0 - 2 % B ON [facility] Eosinophils (Bld) [#/Vol] 0.30 10*3/uL [facility] Eosinophils/100 WBC (Bld) 4 % 0 - 5 % [facility] Erythrocyte distribution width (RBC) [Ratio] 13.4 % 12.1 - 15.2 % [facility] Hematocrit (Bld) [Volume fraction] 42.7 % 41.0 - 53.0 % [facility] Hemoglobin (Bld) [Mass/Vol] 14.9 g/dL 13.5 - 17.5 g/dL [facility] Immature granulocytes (Bld) [#/Vol] 0.02 10*3/uL [facility] Immature granulocytes/100 WBC (Bld) 0 % 0 - 5 % [facility] Interpretation and review of laboratory results Abnormal [facility] Lymphocytes/100 WBC (Bld) 15 % 13 - 44 % [facility] Lymphocytes/100 WBC (Bld) 1.03 % [facility] MCH (RBC) [Entitic mass] 29.8 pg 26. 0 - 34.0 pg [facility] MCHC (RBC) [Mass/Vol] 34.9 g/dL 31.0 - 37.0 g/dL [facility] MCV (RBC) [Entitic vol] 85.4 fL 80.0 - 100.0 fL [facility] Monocytes/100 WBC (Bld) 11 % High 5 - 9 % B ON [facility] Monocytes/100 WBC (Bld) 0.76 % B ON [facility] Neutrophils/100 WBC (Bld) 70 % 39 - 75 % [facility] Platelet mean volume (Bld) [Entitic vol] 9.5 fL 6.0 - 12.0 fL [facility] Platelets (Bld) [#/Vol] 264 10*3/uL [facility] RBC (Bld) [#/Vol] 5.00 10*6/uL 4.50 - 5.9 0 m/uL [facility] Segmented neutrophils/100 WBC (Bld) 4.75 % [facility] WBC other (Bld) [#/Vol] 6.9 B ON [facility] CBC with Diffon 03-26-2024 Abs. Basophil 0.03 k/uL Normal 0.00-0.20 [facility] Comment on above: Performed By: #### C TIMMY MACIAS, CP #### [facility] [address] [place] [address] [employer]: oJse Carlos MD Abs.Imm.Granulocyte 0.02 k/uL Normal 0.00-0.30 [facility] Comment on above: Performed By: #### C TIMMY MACIAS, CP #### [facility] [address] [place] [address] [employer]: Jose Carlos MD Abs.Neutrophil (Seg) 4.75 k/uL Normal 2.1-6.5 [facility] Comment on above: Performed By: #### C TIMMY MACIAS, CP #### [facility] [address] [place] [address] [employer]: Jose Carlos MD Basophils/100 WBC (Bld) 0 % Normal 0-2 M [facility] Comment on above: Performed By: #### C TIMMY MACIAS, CP #### [facility] [address] [place] [address] [employer]: Jose Carlos MD Eosinophils (Bld) [#/Vol] 0.30 10*3/uL Normal 0.00-0.40 [facility] Comment on above: Performed By: #### C TIMMY MACIAS, CP #### [facility] [address] [place], [place] [phone] [employer]: Jose Carlos MD Eosinophils/100 WBC (Bld) 4 % Normal 0-5 [facility] Comment on above: Performed By: #### C KAREN MACIASI, CP #### [facility] [address] [place] [address] [employer]: Jsoe Carlos MD Erythrocyte distribution width (RBC) [Ratio] 13.4 % Normal 12.1-15.2 [facility] Comment on above: Performed By: #### C TIMMY MACIAS, CP #### [facility] [address] [place] [address] [employer]: Jose Carlos MD Hematocrit (Bld) [Volume fraction] 42.7 % Normal 41.0-53.0 [facility] Comment on above: Performed By: #### C TIMMY MACIAS, CP #### [facility] [address] [place] [address] [employer]: Jose Carlos MD Hemoglobin (Bld) [Mass/Vol] 14.9 g/dL Normal 13.5-17.5 [facility] Comment on above: Performed By: #### C TIMMY MACIAS CP #### [facility] [address] [place] [address] [employer] Operator: Jose Carlos MD Immature granulocytes/100 WBC (Bld) 0 % Normal 0-5 [facility] Comment on above: Performed By: #### C TIMMY MACIAS, CP #### [facility] [address] [place] [phone] [employer] Operator: Jose Carlos MD Lymphocytes (Bld) [#/Vol] 1.03 10*3/uL Normal 1.00-4.80 [facility] Comment on above: Performed By: #### C TIMMY MACIAS, CP #### [facility] [address] [place] [address] [employer]: Jose Carlos MD Lymphocytes/100 WBC (Bld) 15 % Normal 13-44 [facility] Comment on above: Performed By: #### C TIMMY MACIAS, CP #### [facility] [address] [place] [phone] [employer] Operator: Jose Carlos MD MCH (RBC) [Entitic mass] 29.8 pg Normal 26.0-34.0 [facility] Comment on above: Performed By: #### C TIMMY MACIAS CP #### [facility] [address] [place] [address] [employer]: Jose Carlos MD MCHC (RBC) [Mass/Vol] 34.9 g/dL Normal 31.0-37.0 [facility] Comment on above: Performed By: #### C TIMMY MACIAS, CP #### [facility] [address] [place] [phone] [employer] Operator: Jose Carlos MD MCV (RBC) [Entitic vol] 85.4 fL Normal 80.0-100.0 [facility] Comment on above: Performed By: #### C TIMMY MACIAS, CP #### [facility] [address] [place] [address] [employer] Operator: Jose Carlos MD Monocytes (Bld) [#/Vol] 0.76 10*3/uL Normal 0.00-1.00 [facility] Comment on above: Performed By: #### C TIMMY MACIAS, CP #### [facility] [address] [place] [phone] [employer] Operator: Jose Carlos MD Monocytes/100 WBC (Bld) 11 % High 5-9 M [facility] Comment on above: Performed By: #### C TIMMY MACIAS, CP #### [facility] [address] [place] [address] [phone] [employer]: Jose Carlos MD Neutrophil (Seg) 70 % Normal 39-75 [facility] Comment on above: Performed By: #### C TIMMY MACIAS CP #### [facility] [address] [place] [address] [phone] [employer]: Jose Carlos MD Platelet mean volume (Bld) [Entitic vol] 9.5 fL Normal 6.0-12.0 [facility] Comment on above: Performed By: #### C TIMMY MACIAS CP #### [facility] [address] [place] [address] [phone] [employer]: Jose Carlos MD Platelets (Bld) [#/Vol] 264 10*3/uL Normal 140-450 [facility] Comment on above: Performed By: #### C TIMMY MACIAS CP #### [facility] [address] [place] [address] [phone] [employer]: Jose Carlos MD RBC (Bld) [#/Vol] 5.00 10*6/uL Normal 4.50-5.90 [facility] Comment on above: Performed By: #### C TIMMY MACIAS CP #### [facility] [address] [place] [address] [phone] [employer]: Jose Carlos MD WBC (Bld) [#/Vol] 6.9 10*3/uL Normal 3.5-11.0 [facility] Comment on above: Performed By: #### C TIMMY MACIAS CP #### [facility] [address] [place] [address] [phone] [employer]: Jose Carlos MD CMPon 03-26-2024 Albumin [Mass/Vol] 4.0 g/dL 3.5 - 5.2 g/dL [facility] ALP [Catalytic activity/Vol] 59 U/L 40 - 129 U/L [facility] ALT [Catalytic activity/Vol] 18 U/L 5 - 41 U/L [facility] Anion gap [Moles/Vol] 10 mmol/L 9 - 17 mmol/L [facility] AST [Catalytic activity/Vol] 17 U/L NINF - 40 U/L [facility] Bilirubin [Mass/Vol] 0.3 mg/dL 0.3 - 1 .2 mg/dL [facility] Calcium [Mass/Vol] 9.2 mg/dL 8.6 - 10. 4 mg/dL [facility] Chloride [Moles/Vol] 105 mmol/L 98 - 10 7 mmol/L [facility] CO2 [Moles/Vol] 24 mmol/L 20 - 31 mmol/L [facility] Creatinine [Mass/Vol] 1.1 mg/dL 0.7 - 1.2 mg/dL [facility] Est, Glom Filt Rate 71 - [facility] Comment on above: These results are not intended for use in patients <18 years of age. eGFR results are calculated without a race factor using the 2020 CKD-EPI equation. Careful clinical correlation is recommended, particularly when comparing to results calculated using previous equations. The CKD-EPI equation is less accurate in patients with extremes of muscle mass, extra-renal metabolism of creatine, excessive creatine ingestion, or following therapy that affects renal tubular secretion. Glucose [Mass/Vol] 104 mg/dL High 70 - 99 mg/dL [facility] Interpretation and review of laboratory results Abnormal [facility] Potassium [Moles/Vol] 3.6 mmol/L Low 3.7 - 5.3 mmol/L [facility] Protein [Mass/Vol] 7.1 g/dL 6.4 - 8.3 g/dL [facility] Sodium [Moles/Vol] 139 mmol/L 135 - 144 mmol/L [facility] Urea nitrogen [Mass/Vol] 17 mg/dL 8 - 23 mg/d L [facility] Comp Metabolic Profon 2023 Albumin [Mass/Vol] 4.0 g/dL Normal 3.5-5.2 [facility] Comment on above: Performed By: #### C DP TROPI, CP #### [facility] [address] [place], [place] [phone] [employer]: Jose Carlos MD Alkaline Phos 59 U/L Normal 40-129 [facility] Comment on above: Performed By: #### C DP TROPI, CP #### [facility] [address] [place], [place] [phone] [employer]: Jose Carlos MD ALT [Catalytic activity/Vol] 18 U/L Normal 5-41 [facility] Comment on above: Performed By: #### C COLLEEN TROPI, CP #### [facility] [address] [place] [phone] [employer]: Jose Carlos MD Anion gap [Moles/Vol] 10 mmol/L Normal 9-17 [facility] Comment on above: Performed By: #### C COLLEEN TROPI, CP #### [facility] [address] [place], [place] [phone] [employer] Operator: Jose Carlos MD AST [Catalytic activity/Vol] 17 U/L Normal <40 [facility] Comment on above: Performed By: #### C COLLEEN TROPI, CP #### [facility] [address] [place], [place] [phone] [employer]: Jose Carlos MD Bilirubin [Mass/Vol] 0.3 mg/dL Normal 0.3-1.2 [facility] Comment on above: Performed By: #### C DP TROPI, CP #### [facility] [address] [place], [place] [phone] [employer]: Jose Carlos MD Calcium [Mass/Vol] 9.2 mg/dL Normal 8.6-10.4 [facility] Comment on above: Performed By: #### C DP TROPI, CP #### [facility] [address] [place], [place] [phone] [employer] Operator: Jose Carlos MD Chloride [Moles/Vol] 105 mmol/L Normal 98-107 [facility] Comment on above: Performed By: #### C TIMMY MACIAS CP #### [facility] [address] [place], [place] [phone] [employer] Operator: Jose Carlos MD CO2 [Moles/Vol] 24 mmol/L Normal 20-31 [facility] Comment on above: Performed By: #### C TIMMY MACIAS, CP #### [facility] [address] [place], [place] [phone] [employer] Operator: Jose Carlos MD Creatinine [Mass/Vol] 1.1 mg/dL Normal 0.7-1.2 [facility] Comment on above: Performed By: #### C TIMMY MACIAS CP #### [facility] [address] [place], [place] [phone] [employer]: Jose Carlos MD GFR/1.73 sq M.predicted among non-blacks MDRD (S/P/Bld) [Vol rate/Area] 71 mL/min/{1.73_m2} Normal >60 [facility] Comment on above: Result Comment: These results are not intended for use in patients <18 years of age. eGFR results are calculated without a race factor using the 2020 CKD-EPI equation. Careful clinical correlation is recommended, particularly when comparing to results calculated using previous equations. The CKD-EPI equation is less accurate in patients with extremes of muscle mass, extra-renal metabolism of creatine, excessive creatine ingestion, or following therapy that affects renal tubular secretion. Performed By: #### C TIMMY MACIAS, CP #### [facility] [address] [place] [address] [employer]: Jose Carlos MD Glucose [Mass/Vol] 104 mg/dL High 70-99 [facility] Comment on above: Performed By: #### C KAREN MACIASI, CP #### [facility] [address] [place] [address] [employer] Operator: Jose Carlos MD Potassium [Moles/Vol] 3.6 mmol/L Low 3.7-5.3 [facility] Comment on above: Performed By: #### C DP, TROPI, CP #### [facility] [address] [place] [address] [employer]: Jose Carlos MD Protein [Mass/Vol] 7.1 g/dL Normal 6.4-8.3 [facility] Comment on above: Performed By: #### C DP, TROPI, CP #### [facility] [address] [place] [address] [employer]: Jose Carlos MD Sodium [Moles/Vol] 139 mmol/L Normal 135-144 [facility] Comment on above: Performed By: #### C DP, TROPI, CP #### [facility] [address] [place] [address] [employer]: Jose Carlos MD Urea nitrogen [Mass/Vol] 17 mg/dL Normal 8-23 [facility] Comment on above: Performed By: #### C DP, TROPI, CP #### [facility] [address] [place] [address] [employer]: Jose Carlos MD Troponinon 03-26-2024 Troponin I.cardiac High sensitivity method [Mass/Vol] 17 ng/L 0 - 22 ng/L [facility] Comment on above: High Sensitivity Tro ponin values cannot be compared with other Troponin methodologies. [facility] Troponin, High Sens 17 ng/L Normal 0-22 [facility] Comment on above: Result Comment: High Sensitivity Troponin values cannot be compared with other Troponin methodologies. Performed By: #### C DP, TROPI, CP #### [facility] [address] [place] [address] [employer]: Jose Carlos MD 36on 02-13-2024 36 Regarding RLE venous doppler performed on 02/12/2024: MD Tracie Samuel MA Please reassure the patient that there is no evidence of clot in the leg. Thank you. Patient informed. Normal [facility] Office Visiton 02-12-2024 Follow-up visit [id number] Keanu Antonio 1950 M Date Provider Department Center 02/12/2024 [id number] TREJO CARD [facility] Family History Problem Relation Age of Onset Other Mother Family Status - Relation Status Age at Mother Level of Service:[id number] ID OFFICE/OUTPATIENT ESTABLISHED MOD MDM 30 MIN Normal [facility] B12/Folate Panelon Cobalamin (Vitamin B12) [Mass/Vol] 310 pg/mL Normal 232-1245 [facility] Comment on above: Performed By: #### B 12FOL #### [facility] [address] [place] [address] [employer]: Alfred Ozuna MD Folic Acid 7.2 ng/mL Normal 4.8-24.2 [facility] Comment on above: Performed By: #### B 12FOL #### [facility] [address] [place] [address] [employer]: Alfred Ozuna MD Lipid Profileon 02-07-2024 Cholesterol [Mass/Vol] 198 mg/dL Normal 0-199 [facility] Comment on above: Result Comment: Cholesterol Guidelines: <200 Desirable 200-240 Borderline >240 Undesirable Performed By: #### L IPR #### [facility] [address] [place] [address] [employer]: Alfred Ozuna MD Cholesterol in HDL [Mass/Vol] 36 mg/dL Low >40 [facility] Comment on above: Result Comment: HDL Guidelines: <40 Undesirable 40-59 Borderline >59 Desirable Performed By: #### L IPR #### [facility] [address] [place] [address] [employer]: Alfred Ozuna MD Cholesterol in LDL [Mass/Vol] 119 mg/dL High 0-100 [facility] Comment on above: Result Comment: LDL Guidelines: <100 Desirable 100-129 Near to/above Desirable 130-159 Borderline >159 Undesirable Direct (measured) LDL and calculated LDL are not interchangeable tests. Performed By: #### L IPR #### [address] [address] [employer]: Alfred Ozuna MD Cholesterol in VLDL [Mass/Vol] 43 mg/dL Normal [facility] Comment on above: Performed By: #### L IPR #### [address] [address] [employer]: Alfred Ozuna MD Cholesterol.total/Choles terol in HDL [Mass ratio] 5.0 {ratio} Normal [facility] Comment on above: Performed By: #### L IPR #### [address] [address] [employer]: Alfred Ozuna MD Triglyceride [Mass/Vol] 214 mg/dL High <150 M [facility] Comment on above: Result Comment: Triglyceride Guidelines: <150 Desirable 150-199 Borderline 200-499 High >499 Very high Based on AHA Guidelines for fasting triglyceride, April 2012. Performed By: #### L IPR #### [address] [address] [employer]: Alfred Ozuna MD Vitamin D 25 OHon 02-07-2024 Vitamin D 25 OH 20.6 ng/mL Low 30.0-100.0 [facility] Comment on above: Result Comment: Reference Range: Vitamin D status Range Deficiency <20 ng/mL Mild Deficiency 20-30 ng/mL Sufficiency 30-100 ng/mL Toxicity >100 ng/mL Performed By: #### C P #### [facility] [address] [place], [place] [address] [employer] Operator: Jose Carlos MD #### VD25 #### [address] [address] [employer]: Alfred Ozuna MD Comp Metabolic Profon 2023 Albumin [Mass/Vol] 4.2 g/dL Normal 3.5-5.2 [facility] Comment on above: Performed By: #### C P #### [facility] [address] [place], [place] 3235[address] [employer]: Jose Carlos MD #### VD25 #### [place] [place] [address] [employer]: Alfred Ozuna MD Albumin/Glob Ratio 1.4 Normal 1.0-2.5 [facility] Comment on above: Performed By: #### C P #### [facility] [address] [place], [place] [address] [employer]: Jose Carlos MD #### VD25 #### [address] [address] [employer]: Alfred Ozuna MD Alkaline Phos 56 U/L Normal 40-129 [facility] Comment on above: Performed By: #### C P #### [facility] [address] [place] [address] [place] [place], [place] [address] [employer]: Jose Carlos MD #### VD25 #### [address] [address] [employer]: Alfred Ozuna MD ALT [Catalytic activity/Vol] 22 U/L Normal 5-41 [facility] Comment on above: Performed By: #### C P #### [facility] [address] [place], [place] 9774[address] [employer]: Jose Carlos MD #### VD25 #### [address] [address] [employer]: Alfred Ozuna MD Anion gap [Moles/Vol] 10 mmol/L Normal 9-17 [facility] Comment on above: Performed By: #### C P #### [facility] [address] [place], [place] [phone] [employer]: Jose Carlos MD #### VD25 #### [place] [place] [address] [employer] Operator: Alfred Ozuna MD AST [Catalytic activity/Vol] 22 U/L Normal <40 [facility] Comment on above: Performed By: #### C P #### [facility] [address] [place], [place] [address] [employer]: Jose Carlos MD #### VD25 #### [address] [address] [employer]: Alfred Ozuna MD Bilirubin [Mass/Vol] 0.5 mg/dL Normal 0.3-1.2 [facility] Comment on above: Performed By: #### C P #### [facility] [address] [place], [place] 3979[address] [employer]: Jose Carlos MD #### VD25 #### [address] [address] [employer]: Alfred Ozuna MD BUN/CRE Ratio 13 Normal 9-20 [facility] Comment on above: Performed By: #### C P #### [facility] [address] [place], [place] [phone] [employer]: Jose Carlos MD #### VD25 #### [address] [address] [employer]: Alfred Ozuna MD Calcium [Mass/Vol] 8.8 mg/dL Normal 8.6-10.4 [facility] Comment on above: Performed By: #### C P #### [facility] [address] [place], [place] [address] [employer]: Jose Carlos MD #### VD25 #### [facility] [address] [place], [place] [address] [employer]: Alfred Ozuna MD Chloride [Moles/Vol] 103 mmol/L Normal 98-107 [facility] Comment on above: Performed By: #### C P #### [facility] [address] [place], [place] 6736[address] [employer]: Jose Carlos MD #### VD25 #### [address] [phone] [employer]: Alfred Ozuna MD CO2 [Moles/Vol] 25 mmol/L Normal 20-31 [facility] Comment on above: Performed By: #### C P #### [facility] [address] [place], [place] 4499[address] [employer] Operator: Jose Carlos MD #### VD25 #### [address] [address] [employer]: Alfred Ozuna MD Creatinine [Mass/Vol] 1.3 mg/dL High 0.7-1.2 [facility] Comment on above: Performed By: #### C P #### [facility] [address] [place], [place] [address] [employer]: Jose Carlos MD #### VD25 #### [address] [address] [employer]: Alfred Ozuna MD GFR/1.73 sq M.predicted among non-blacks MDRD (S/P/Bld) [Vol rate/Area] 58 mL/min/{1.73_m2} Low >60 [facility] Comment on above: Result Comment: These results are not intended for use in patients <18 years of age. eGFR results are calculated without a race factor using the 2020 CKD-EPI equation. Careful clinical correlation is recommended, particularly when comparing to results calculated using previous equations. The CKD-EPI equation is less accurate in patients with extremes of muscle mass, extra-renal metabolism of creatine, excessive creatine ingestion, or following therapy that affects renal tubular secretion. Performed By: #### C P #### [address] [place], [place] [address] [employer]: Jose Carlos MD #### VD25 #### [address] [address] [employer]: Alfred Ozuna MD Glucose [Mass/Vol] 99 mg/dL Normal 70-99 [facility] Comment on above: Performed By: #### C P #### [address] [place], [place] 27[address] [employer]: oJse Carlos MD #### VD25 #### [address] [address] [employer]: Alfred Ozuna MD Potassium [Moles/Vol] 4.4 mmol/L Normal 3.7-5.3 [facility] Comment on above: Performed By: #### C P #### [address] [place], [place] [address]83 [employer]: Jose Carlos MD #### VD25 #### [address] [address] [employer]: Alfred Ozuna MD Protein [Mass/Vol] 7.1 g/dL Normal 6.4-8.3 [facility] Comment on above: Performed By: #### C P #### [address] [place], [place] [address] [employer]: Jose Carlos MD #### VD25 #### [address] [address] [employer]: Alfred Ozuna MD Sodium [Moles/Vol] 138 mmol/L Normal 135-144 [facility] Comment on above: Performed By: #### C P #### [facility] [address] [place] [address] [employer] Operator: Jose Carlos MD #### VD25 #### [facility] [address] [place], [place] 2734[address] [employer] Operator: Alfred Ozuna MD Urea nitrogen [Mass/Vol] 17 mg/dL Normal 8-23 [facility] Comment on above: Performed By: #### C P #### [facility] [address] [place] [address] [employer] Operator: Jose Carlos MD #### VD25 #### [facility] [address] [place], [place] 5020[address] [employer] Operator: Alfred Ozuna MD TSH w/reflex to FT4on 2023 Thyroid Stim. Horm. 1.04 uIU/mL Normal 0.30-5.00 [facility] Comment on above: Performed By: #### T SHX #### [facility] [address] [place] [address] [employer]: Jose Carlos MD CBC with Auto Differentialon 03-14-2023 Basophils (Bld) [#/Vol] 0.04 10*3/uL [facility] Basophils/100 WBC (Bld) 1 % 0 - 2 % B ON [facility] Eosinophils (Bld) [#/Vol] 0.30 10*3/uL [facility] Eosinophils/100 WBC (Bld) 4 % 1 - 4 % [facility] Erythrocyte distribution width (RBC) [Ratio] 13.3 % 11.8 - 14.4 % [facility] Hematocrit (Bld) [Volume fraction] 48.1 % 40.7 - 50.3 % [facility] Hemoglobin (Bld) [Mass/Vol] 15.7 g/dL 13.0 - 17.0 g/dL [facility] Immature granulocytes (Bld) [#/Vol] [facility] Immature granulocytes/100 WBC (Bld) 0 % 0 [facility] Interpretation and review of laboratory results Abnormal [facility] Lymphocytes/100 WBC (Bld) 17 % Low 24 - 43 % [facility] Lymphocytes/100 WBC (Bld) 1.26 % [facility] MCH (RBC) [Entitic mass] 29.7 pg 25. 2 - 33.5 pg [facility] MCHC (RBC) [Mass/Vol] 32.6 g/dL 28.4 - 34.8 g/dL [facility] MCV (RBC) [Entitic vol] 91.1 fL 82.6 - 102.9 fL [facility] Monocytes/100 WBC (Bld) 10 % 3 - 12 % B ON [facility] Monocytes/100 WBC (Bld) 0.76 % B ON [facility] Neutrophils/100 WBC (Bld) 68 % High 36 - 65 % [facility] Nucleated RBC/100 WBC (Bld) [Ratio] 0.0 % 0.0 per 100 WBC [facility] Platelet mean volume (Bld) [Entitic vol] 10.8 fL 8.1 - 13.5 fL [facility] Platelets (Bld) [#/Vol] 323 10*3/uL [facility] RBC (Bld) [#/Vol] 5.28 10*6/uL 4.21 - 5.7 7 m/uL [facility] Segmented neutrophils/100 WBC (Bld) 4.92 % [facility] WBC other (Bld) [#/Vol] 7.3 B ON [facility] Comprehensive Metabolic Pane casey 03-14-2023 Albumin [Mass/Vol] 4.4 g/dL 3.5 - 5.2 g/dL [facility] Albumin/Globulin [Mass ratio] 1.3 {ratio} 1.0 - 2.5 [facility] ALP [Catalytic activity/Vol] 70 U/L 40 - 129 U/L [facility] ALT [Catalytic activity/Vol] 20 U/L 5 - 41 U/L [facility] Anion gap [Moles/Vol] 14 mmol/L 9 - 17 mmol/L [facility] AST [Catalytic activity/Vol] 23 U/L NINF - 40 U/L [facility] Bilirubin [Mass/Vol] 0.4 mg/dL 0.3 - 1 .2 mg/dL [facility] Calcium [Mass/Vol] 9.8 mg/dL 8.6 - 10. 4 mg/dL [facility] Chloride [Moles/Vol] 101 mmol/L 98 - 10 7 mmol/L [facility] CO2 [Moles/Vol] 24 mmol/L 20 - 31 mmol/L [facility] Creatinine [Mass/Vol] 1.1 mg/dL 0.7 - 1.2 mg/dL [facility] GFR/1.73 sq M.predicted MDRD (S/P/Bld) [Vol rate/Area] - PINF [facility] Comment on above: These results are not intended for use in patients <18 years of age. eGFR results are calculated without a race factor using the 2020 CKD-EPI equation. Careful clinical correlation is recommended, particularly when comparing to results calculated using previous equations. The CKD-EPI equation is less accurate in patients with extremes of muscle mass, extra-renal metabolism of creatine, excessive creatine ingestion, or following therapy that affects renal tubular secretion. Glucose [Mass/Vol] 92 mg/dL 70 - 99 mg/dL [facility] Potassium [Moles/Vol] 4.2 mmol/L 3.7 - 5.3 mmol/L [facility] Protein [Mass/Vol] 7.9 g/dL 6.4 - 8.3 g/dL [facility] Sodium [Moles/Vol] 139 mmol/L 135 - 144 mmol/L [facility] Urea nitrogen [Mass/Vol] 20 mg/dL 8 - 23 mg/d L [facility] Urea nitrogen/Creatinine [Mass ratio] 18 mg/mg 9 - 20 [facility] Microscopic Urinalysison Bacteria LM Ql (Urine sed) 2+ Abnormal None [facility] Epithelial cells LM.HPF (Urine sed) [#/Area] None [facility] Interpretation and review of laboratory results Abnormal [facility] Mucus Ql (Urine sed) 1+ Abnormal None [facility] RBC LM.HPF (Urine sed) [#/Area] 0 TO 2 [facility] WBC LM.HPF (Urine sed) [#/Area] 0 TO 2 [facility] Urinalysis with Reflex to Cu ltureon 02-22-2023 Bilirubin Ql (U) Negative NEGATIVE [facility] Clarity (U) Clear Clear [facility] Color (U) Yellow Yellow [facility] Glucose Test strip (U) [Mass/Vol] Negative NEGATIVE mg/dL [facility] Hemoglobin Auto test strip Ql (U) Negative NEGATIVE [facility] Interpretation and review of laboratory results Abnormal [facility] Ketones (U) [Mass/Vol] Negative NEGAT [place] mg/dL [facility] Leukocyte esterase Test strip Ql (U) Negative NEGATIVE [facility] Nitrite Ql (U) Negative NEGATIVE [facility] pH (U) 6.0 [pH] 5.0 - 9.0 [facility] Protein (U) [Mass/Vol] 2+ Abnormal NEGAT [place] mg/dL [facility] Specific gravity (U) [Rel density] 1.020 1.010 - 1.020 [facility] Urobilinogen Qn (U) Normal 0.0 - 1. 0 EU/dL [facility] CBCon 02-02-2023 ABSOLUTE BAS 0.1 10*3/uL Normal 0.0-0.2 [facility] ABSOLUTE EOS 0.3 10*3/uL Normal 0.0-0.7 [facility] ABSOLUTE NEUTROPHIL COUNT 3.4 10*3/uL Normal 1.4-6.5 [facility] Basophils/100 WBC (Bld) 1.1 % Normal 0.0-2.0 [facility] DTYPE AUTO DIFF Normal [facility] Eosinophils/100 WBC (Bld) 5.1 % Normal 0.0-11.0 [facility] Lymphocytes (Bld) [#/Vol] 1.2 10*3/uL Normal 1.2-3.4 [facility] Lymphocytes/100 WBC (Bld) 20.8 % Normal 20.0-55.0 [facility] Monocytes (Bld) [#/Vol] 0.7 10*3/uL Normal 0.0-0.7 [facility] Monocytes/100 WBC (Bld) 12.4 % High 0.0-10.0 [facility] Neutrophils/100 WBC (Bld) 60.6 % Normal 37.0-75.0 [facility] Erythrocyte distribution width (RBC) [Ratio] 14.4 % Normal 11.5-14.5 [facility] Hematocrit (Bld) [Volume fraction] 39.9 % Low 42.0-52.0 [facility] Hemoglobin (Bld) [Mass/Vol] 13.4 g/dL Low 14.0-18.0 [facility] MCH (RBC) [Entitic mass] 29.8 pg Normal 26.0-35.0 [facility] MCHC (RBC) [Mass/Vol] 33.7 g/dL Normal 27.0-37.0 [facility] MCV (RBC) [Entitic vol] 88.5 fL Normal 80.0-100.0 [facility] Platelet mean volume (Bld) [Entitic vol] 7.8 fL Normal 7.4-11.0 [facility] Platelets (Bld) [#/Vol] 263 10*3/uL Normal 130-400 [facility] RBC (Bld) [#/Vol] 4.51 10*6/uL Normal 4.0-6.1 [facility] WBC (Bld) [#/Vol] 5.6 10*3/uL Normal 3.6-11.0 [facility] CBC, EDIF, PLATELETon 2022 ABSOLUTE BASOPHIL COUNT 0.1 10*3/uL 0.0 - 0.2 10*3/uL [facility] Basophils/100 WBC (Bld) 1.1 % 0.0 - 2.0 % [facility] Differential cell count method Nom (Bld) AUTO DIFF % [facility] Eosinophils (Bld) [#/Vol] 0.3 10*3/uL 0.0 - 0.7 10*3/uL [facility] Eosinophils/100 WBC (Bld) 5.1 % 0.0 - 11.0 % [facility] Erythrocyte distribution width (RBC) [Ratio] 14.4 % 11.5 - 14.5 % [facility] Hematocrit (Bld) [Volume fraction] 39.9 % Low 42.0 - 52.0 % [facility] Hemoglobin (Bld) [Mass/Vol] 13.4 g/dL Low [facility] Interpretation and review of laboratory results Abnormal [facility] Lymphocytes (Bld) [#/Vol] 1.2 10*3/uL 1.2 - 3.4 10*3/uL [facility] Lymphocytes/100 WBC (Bld) 20.8 % 20.0 - 55.0 % [facility] MCH (RBC) [Entitic mass] 29.8 pg 26. 0 - 35.0 PG [facility] MCHC (RBC) [Mass/Vol] 33.7 g/dL [facility] MCV (RBC) [Entitic vol] 88.5 fL [facility] Monocytes (Bld) [#/Vol] 0.7 10*3/uL 0.0 - 0.7 10*3/uL [facility] Monocytes/100 WBC (Bld) 12.4 % High 0.0 - 10.0 % [facility] Neutrophils (Bld) [#/Vol] 3.4 10*3/uL 1.4 - 6.5 10*3/uL [facility] Neutrophils/100 WBC (Bld) 60.6 % 37.0 - 75.0 % [facility] Platelet mean volume (Bld) [Entitic vol] 7.8 fL [facility] Platelets (Bld) [#/Vol] 263 10*3/uL 130 - 400 10*3/uL [facility] RBC (Bld) [#/Vol] 4.51 10*6/uL 4.0 - 6.1 10*6/uL [facility] WBC (Bld) [#/Vol] 5.6 10*3/uL 3.6 - 11.0 10*3/uL [facility] CMP FASTINGon 02-02-2023 A:G RATIO 1.3 RATIO Normal 1.3-2.2 [facility] ALBUMIN 3.6 G/dl Normal 3.5-5.0 [facility] ALP [Catalytic activity/Vol] 55 U/L Normal 38-126 [facility] ALT [Catalytic activity/Vol] 22 U/L Normal <50 [facility] AST [Catalytic activity/Vol] 23 U/L Normal 17-59 [facility] Bilirubin [Mass/Vol] 0.2 mg/dL Normal 0.2-1.3 [facility] Calcium [Mass/Vol] 9.0 mg/dL Normal 8.4-10.2 [facility] Chloride [Moles/Vol] 105 mmol/L Normal 98-107 [facility] Comment on above: Result Comment: Unruly burdick note: Triglyceride levels of 600mg/dL or higher may positively bias chloride results by approximately 2.1 mmol CO2 [Moles/Vol] 28 mmol/L Normal 22-30 [facility] Creatinine [Mass/Vol] 1.20 mg/dL Normal 0.7-1.2 [facility] EST. GFR, 77 ml/min/1.73sq.m [facility] EST. GFR,Non 63 ml/min/1.73sq.m [facility] GFR Information Average GFR for 70+ years old = 75. Normal [facility] Comment on above: Result Comment: [employer] karthik Kidney disease, GFR = <60. Kidney failure, GFR = <15. The GFR estimate is not adjusted for extreme body surface area or acute process, nor has it been validated for women or ethnic groups other than and . Glucose [Mass/Vol] 92 mg/dL Normal 70-100 [facility] Comment on above: Result Comment: NORMAL <100 mg/dL PREDIABETES 101-126 mg/dL DIABETES 126 mg/dL or higher Potassium [Moles/Vol] 4.2 mmol/L Normal 3.5-5.1 [facility] Protein [Mass/Vol] 6.3 g/dL Normal 6.3-8.2 [facility] Sodium [Moles/Vol] 139 mmol/L Normal 137-145 [facility] Urea nitrogen [Mass/Vol] 18 mg/dL Normal 7-20 [facility] COMPREHENSIVE METABOLIC PANE Casey 02-02-2023 Albumin [Mass/Vol] 3.6 G/dl 3.5 - 5.0 G/dl [facility] Albumin/Globulin [Mass ratio] 1.3 {ratio} [facility] ALP [Catalytic activity/Vol] 55 U/L [facility] ALT [Catalytic activity/Vol] 22 U/L NINF [facility] AST [Catalytic activity/Vol] 23 U/L [facility] Bilirubin [Mass/Vol] 0.2 mg/dL [facility] Calcium [Mass/Vol] 9.0 mg/dL [facility] Chloride [Moles/Vol] 105 mmol/L [facility] Comment on above: Please note: Triglyc eride levels of 600mg/dL or higher may positively bias chloride results by approximately 2.1 mmol CO2 [Moles/Vol] 28 mmol/L [facility] Creatinine [Mass/Vol] 1.20 mg/dL [facility] GFR COMMENT Average GFR for 70+ years old = 75. [facility] Comment on above: Chronic Kidney disea se, GFR = <60. Kidney failure, GFR = <15. The GFR estimate is not adjusted for extreme body surface area or acute process, nor has it been validated for women or ethnic groups other than and . GFR/1.73 sq M.predicted among blacks MDRD (S/P/Bld) [Vol rate/Area] 77 mL/min/{1.73_m2} ml/min/1.73s q.m [facility] GFR/1.73 sq M.predicted among non-blacks MDRD (S/P/Bld) [Vol rate/Area] 63 mL/min/{1.73_m2} ml/min/1.73s q.m [facility] Glucose post fast [Mass/Vol] 92 mg/dL [facility] Comment on above: NORMAL <100 mg/dL PREDIABETES 101-126 mg/dL DIABETES 126 mg/dL or higher Potassium [Moles/Vol] 4.2 mmol/L [facility] Protein [Mass/Vol] 6.3 g/dL [facility] Sodium [Moles/Vol] 139 mmol/L [facility] Urea nitrogen [Mass/Vol] 18 mg/dL [facility] D DIMERon 02-02-2023 D DIMER 0.35 ??g/ml Normal <0.50 [facility] Comment on above: Result Comment: If r esult is greater than the cutoff value of 0.50 ??g/ml then the potential for PE or DVT exists. Other conditions exist which may cause a falsely elevated level. Please correlate clinically, including radiological findings and other clinical parameters. D-DIMER,QUANTITATIVEon 02-02 Fibrin D-dimer FEU (PPP) [Mass/Vol] [facility] [facility] Comment on above: If result is greater than the cutoff value of 0.50 g/ml then the potential for PE or DVT exists. Other conditions exist which may cause a falsely elevated level. Please correlate clinically, including radiological findings and other clinical parameters. [facility] LIPASEon 02-02-2023 Lipase [Catalytic activity/Vol] 296 U/L 23 - 300 U/L [facility] LIPASE,SERUMon 02-02-2023 LIPASE,SERUM 296 U/L Normal 23-300 [facility] MAGNESIUMon 02-02-2023 Magnesium [Mass/Vol] 2.3 mg/dL Normal 1.6-2.3 [facility] Magnesium [Mass/Vol] 2.3 mg/dL [facility] No Panel Informationon 02-02 [facility] Portable XR Chest Views APon 02-02-2023 IMPRESSION: 1. Aortic ASVD. 2. Suspected mitral valvular calcification. 3. No acute pulmonary pathology identified. RADIOLOGY EXAM: XR CHEST AP PORTABLE HISTORY: chest pain COMPARISON: 10/31/2022 TECHNIQUE: An AP upright portable view of the chest was obtained at 1415 hours. FINDINGS: The cardiac silhouette is thought to be satisfactory for the AP view. There is a normal trachea. Aorta is calcified but normal in caliber. I believe there is mitral valvular calcifications. Both lungs are expanded. No major edema, infiltrate, pleural effusion, or evidence of mass is identified. RADIOLOGY Ame Dias, DO - 02/02/2023 EXAM: XR CHEST AP PORTABLE HISTORY: chest pain COMPARISON: 10/31/2022 TECHNIQUE: An AP upright portable view of the chest was obtained at 1415 hours. FINDINGS: The cardiac silhouette is thought to be satisfactory for the AP view. There is a normal trachea. Aorta is calcified but normal in caliber. I believe there is mitral valvular calcifications. Both lungs are expanded. No major edema, infiltrate, pleural effusion, or evidence of mass is identified. IMPRESSION IMPRESSION: 1. Aortic ASVD. 2. Suspected mitral valvular calcification. 3. No acute pulmonary pathology identified. [facility] Rad[facility]narrative) [facility] [employer] Portable XR Chest Views APOr dered By: Ame Dias on 02-02-2023 [facility] TROPONIN I, HIGH SENSITIVITY on 02-02-2023 TROPONIN I, HIGH SENSITIVITY 18 pg/mL Normal 0-20 [facility] Comment on above: Result Comment: Indeterminant: >12 to 100 pg/mL female >20 to 100 pg/mL male Indicative of myocardial injury. Serial sampling is recommended, a change of greater than or equal to 20 pg/mL is indicative of acute coronary syndrome. TROPONIN I, HIGH SENSITIVITY 18 pg/mL 0 - 20 pg/mL [facility] Comment on above: Indeterminant: >12 to 100 pg/mL female >20 to 100 pg/mL male Indicative of myocardial injury. Serial sampling is recommended, a change of greater than or equal to 20 pg/mL is indicative of acute coronary syndrome. [facility] TROPONIN I, HIGH SENSITIVITY 16 pg/mL Normal 0-20 [facility] Comment on above: Result Comment: Indeterminant: >12 to 100 pg/mL female >20 to 100 pg/mL male Indicative of myocardial injury. Serial sampling is recommended, a change of greater than or equal to 20 pg/mL is indicative of acute coronary syndrome. TROPONIN I, HIGH SENSITIVITY 16 pg/mL 0 - 20 pg/mL [facility] Comment on above: Indeterminant: >12 to 100 pg/mL female >20 to 100 pg/mL male Indicative of myocardial injury. Serial sampling is recommended, a change of greater than or equal to 20 pg/mL is indicative of acute coronary syndrome. [facility] TSHon 02-02-2023 TSH 1.330 uIU/ML Normal 0.46-4.68 [facility] TSH Qn 1.330 m[IU]/L [facility] XR CHEST AP PORTABLEon 02-02 XR CHEST AP PORTABLE EXAM: XR CHEST AP PORTABLE HISTORY: chest pain COMPARISON: 10/31/2022 TECHNIQUE: An AP upright portable view of the chest was obtained at 1415 hours. FINDINGS: The cardiac silhouette is thought to be satisfactory for the AP view. There is a normal trachea. Aorta is calcified but normal in caliber. I believe there is mitral valvular calcifications. Both lungs are expanded. No major edema, infiltrate, pleural effusion, or evidence of mass is identified. IMPRESSION: 1. Aortic ASVD. 2. Suspected mitral valvular calcification. 3. No acute pulmonary pathology identified. Normal [facility] XR LUMBAR SPINE (MIN 4 VIEWS )on 11-11-2022 FINDINGS/IMPRESSION : 1. No fracture. 2. Moderate diffuse degenerative change and atherosclerosis in the aorta. [facility] EXAM: XR LUMBAR SPINE (MIN 4 VIEWS) HISTORY: Lumbar radiculopathy. COMPARISON: None. [facility] Tiago Lockwood Jr., MD - 11/11/2022 EXAM: XR LUMBAR SPINE (MIN 4 VIEWS) HISTORY: Lumbar radiculopathy. COMPARISON: None. IMPRESSION: FINDINGS/IMPRESSION : 1. No fracture. 2. Moderate diffuse degenerative change and atherosclerosis in the aorta. [employer] Phone: Radiology Study observation (narrative) [employer] Work Phone: XR LUMBAR SPINE (MIN 4 VIEWS )Ordered By: Tiago Lockwood on 11-11-2022 [employer] Phone: CBC AUTO DIFFon 10-31-2022 BASO # 0.0 103/ul Normal 0.0-0.1 [facility] Comment on above: Performed By: #### C BC #### [facility] [address] [address] [address] Shala Marie Basophils/100 WBC (Bld) 0.4 % Normal 0.2-2.[address] [facility] Comment on above: Performed By: #### C BC #### [facility] [address] [place] [address] Dr. Shala Marie EO # 0.2 103/ul Normal 0.0-0.7 [facility] Comment on above: Performed By: #### C BC #### [facility] [address] [place] [address] Dr. Shala Marie Eosinophils/100 WBC (Bld) 3.8 % Normal 0.9-7.0 [facility] Comment on above: Performed By: #### C BC #### [facility] [address] [place] [address] Dr. Shala Marie Erythrocyte distribution width (RBC) [Ratio] 13.5 % Normal 11.0-15.0 [facility] Comment on above: Performed By: #### C BC #### [facility] [address] [place] [address] Dr. Shala Marie Hematocrit (Bld) [Volume fraction] 43.5 % Normal 42.0-54.0 [facility] Comment on above: Performed By: #### C BC #### [facility] [address] [place] [address] Dr. Shala Marie Hemoglobin (Bld) [Mass/Vol] 14.5 g/dL Normal 14.0-18.0 [facility] Comment on above: Performed By: #### C BC #### [facility] [address] [place] [address] Dr. Shala Marie IG # 0.01 10e3/ul Normal 0.00-0.03 [facility] Comment on above: Performed By: #### C BC #### [facility] [address] [place] [address] Dr. Shala Marie IG % 0.2 % Normal 0.0-0.5 [facility] Comment on above: Performed By: #### C BC #### [facility] [address] [place] [address] Dr. Shala Marie LYMPH # 1.0 103/ul Critically low 1.2-3.8 [facility] Comment on above: Performed By: #### C BC #### [facility] [address] [place] [address] Dr. Shala Marie Lymphocytes/100 WBC (Bld) 18.3 % Critically low 20.5-60.0 [facility] Comment on above: Performed By: #### C BC #### [facility] [address] [place] [address] Dr. Shala Marie MANUAL DIFF REQ NO Normal [facility] Comment on above: Performed By: #### C BC #### [facility] [address] [place] [address] Dr. Shala Marie MCH (RBC) [Entitic mass] 29.5 pg Normal 25.9-34.0 [facility] Comment on above: Performed By: #### C BC #### [facility] [address] [place] [address] Dr. Shala Marie MCHC (RBC) [Mass/Vol] 33.3 g/dL Normal 29.9-35.2 [facility] Comment on above: Performed By: #### C BC #### [facility] [address] [place] [address] Dr. Shala Marie MCV (RBC) [Entitic vol] 88.6 fL Normal 80.0-94.[address] [facility] Comment on above: Performed By: #### C BC #### [facility] [address] [place] [address] Dr. Shala Marie MONO # 0.5 103/ul Normal 0.3-0.8 [facility] Comment on above: Performed By: #### C BC #### [facility] [address] [place] [address] Dr. Shala Marie Monocytes/100 WBC (Bld) 8.7 % Normal 1.7-12.[address] [facility] Comment on above: Performed By: #### C BC #### [facility] [address] [place] [address] Dr. Shala Marie NEUT # 3.8 103/ul Normal 1.4-6.5 [facility] Comment on above: Performed By: #### C BC #### [facility] [address] [address] [address] Shala Marie Neutrophils/100 WBC (Bld) 68.6 % Normal 43.0-75.0 [facility] Comment on above: Performed By: #### C BC #### [facility] [address] [address] [address] Shala Marie Platelet mean volume (Bld) [Entitic vol] 9.3 fL Critically low 9.5-13.5 [facility] Comment on above: Performed By: #### C BC #### [facility] [address] [place] [address] Dr. Shala Marie PLT 273 103/ul Normal 150-450 [facility] Comment on above: Performed By: #### C BC #### [facility] [address] [place] [address] Dr. Shala Marie RBC 4.91 106/ul Normal 4.70-6.10 [facility] Comment on above: Performed By: #### C BC #### [facility] [address] [place] [address] Dr. Shala Marie WBC 5.5 103/ul Normal 4.0-11.0 [facility] Comment on above: Performed By: #### C BC #### [facility] [address] [place] [address] Dr. Shala Marie PROF CHEM 8 (BAS METB)on Anion gap [Moles/Vol] 10.4 mmol/L Normal [facility] Comment on above: Performed By: #### H PEÑA, BMP #### [facility] [address] [place] [address] Dr. Shala Marie Calcium [Mass/Vol] 9.1 mg/dL Normal 8.5-10.1 [facility] Comment on above: Performed By: #### H SANDRAPN, BMP #### [facility] [address] [place] [address] Dr. Shala Marie Chloride [Moles/Vol] 107 mmol/L Normal 98-107 [facility] Comment on above: Performed By: #### H SANDRAPN, BMP #### [facility] [address] [address] [address] Shala Marie CO2 [Moles/Vol] 29.6 mmol/L Normal 21.0-32.0 [facility] Comment on above: Performed By: #### H STROPN, BMP #### [facility] [address] [address] [address] Shala Marie Creatinine [Mass/Vol] 1.25 mg/dL Normal 0.70-1.30 [facility] Comment on above: Performed By: #### H STROPN, BMP #### [facility] [address] [address] [address] Shala Marie EGFR-AF JAMAICAN >60 Normal >=60 [facility] Comment on above: Performed By: #### H STROPN, BMP #### [facility] [address] [address] [address] Shala Marie EGFR-NON AF [place] 57 mL/min/1.73m2 Critically low >=60 [facility] Comment on above: Performed By: #### H STROPN, BMP #### [facility] [address] [address] [address] Shala Marie Glucose [Mass/Vol] 105 mg/dL Normal 74-106 [facility] Comment on above: Performed By: #### H STROPN, BMP #### [facility] [address] [address] [address] Shala Marie Potassium [Moles/Vol] 4.0 mmol/L Normal 3.5-5.1 [facility] Comment on above: Performed By: #### H STROPN, BMP #### [facility] [address] [address] [address] Shala Marie Sodium [Moles/Vol] 143 mmol/L Normal 136-145 [facility] Comment on above: Performed By: #### H STROPN, BMP #### [facility] [address] [address] [address] Shala Marie Urea nitrogen [Mass/Vol] 20.0 mg/dL Critically high 7.0-18 .0 [facility] Comment on above: Performed By: #### H PEÑA, BMP #### [facility] [address] [address] [address] Shala Marie Urea nitrogen/Creatinine [Mass ratio] 16.0 mg/mg Normal [facility] Comment on above: Performed By: #### H PEÑA, BMP #### [facility] [address] [address] [address] Shala Marie TROPONIN, HIGH SENSITIVITYon 10-31-2022 HSTROP 25.8 pg/mL Normal 4.0-76.1 [facility] Comment on above: Result Comment: CUT- OFF POINTS HAVE BEEN ESTABLISHED BASED ON THE FOURTH UNIVERSAL DEFINITIONS OF MYOCARDIAL INFARCTION. THE UPPER REFERENCE LIMIT (URL) OF TROPONIN, DEFINED THE 99TH PERCENTILE OF cTnI DISTRIBUTION IN A REFERENCE POPULATION, HAS BEEN CONFIRMED THE DECISION THRESHOLD FOR UT DIAGNOSIS. Performed By: #### H PEÑA #### [facility] [address] [address] [address] Shala Marie HSTROP 23.0 pg/mL Normal 4.0-76.1 [facility] Comment on above: Result Comment: CUT- OFF POINTS HAVE BEEN ESTABLISHED BASED ON THE FOURTH UNIVERSAL DEFINITIONS OF MYOCARDIAL INFARCTION. THE UPPER REFERENCE LIMIT (URL) OF TROPONIN, DEFINED THE 99TH PERCENTILE OF cTnI DISTRIBUTION IN A REFERENCE POPULATION, HAS BEEN CONFIRMED THE DECISION THRESHOLD FOR UT DIAGNOSIS. Performed By: #### H PEÑA, BMP #### [facility] [address] [address] [address] Shala Marie XR CHEST 1 Von 10-31-2022 XR CHEST 1 V EXAM: XR CHEST 1 V HISTORY: Chest pain; technologist notes state left-sided chest pain, pain beneath the left arm, dizziness and shortness of breath for the past couple weeks. COMPARISON: 04/07/2021. TECHNIQUE: AP erect portable chest radiograph performed. FINDINGS: The trachea is normal. The heart size is within normal limits and stable. There is stable mild atheromatous calcification at the aortic arch. There is mild elevation of the right hemidiaphragm. There is no consolidation or infiltrates. There is no pleural effusion or pulmonary vascular congestion. There is no pneumothorax or osseous abnormality. IMPRESSION: There is no acute cardiopulmonary process. Electronically authenticated by: CELIA SWIFT Date: 2022-10-31 08:31 Normal [facility] C-Reactive Proteinon 023 CRP High sensitivity method [Mass/Vol] mg/L 0.0 - 5.0 mg/L [facility] Sedimentation Rateon 023 ESR (Bld) [Velocity] 6 mm/h [facility] MRI FEMUR LEFT W WO CONTRAST on 09-13-2022 There is chronic enthesopathy along the posteromedial aspect of the femoral shaft as seen on x-rays which corresponds to normal adductor tendon attachment upon the linea aspera of the femur. This can sometimes indicate an old traction injury. Regardless, no worrisome features. No stress fracture or stress response. Bone marrow signal is within normal limits. [facility] EXAM: MRI FEMUR LEFT W WO CONTRAST REASON FOR EXAM: Left thigh pain x 2 weeks. No known injury. TECHNIQUE: Multiplanar, multisequence imaging of the femur/thigh without IV contrast. COMPARISON: Left femur x-rays 09/06/2022. FINDINGS: There is chronic enthesopathy along the posteromedial aspect of the femoral shaft as seen on x-rays which corresponds to normal adductor tendon attachment upon the linea aspera of the femur. This can sometimes indicate an old traction injury. Regardless, no worrisome features. No stress fracture or stress response. Bone marrow signal is within normal limits. No evidence of tendon tear. No pathologic enhancement. There is moderate atrophy of the semimembranosus muscle along its distal one half. [facility] Tyler Capellan MD - 09/13/2022 EXAM: MRI FEMUR LEFT W WO CONTRAST REASON FOR EXAM: Left thigh pain x 2 weeks. No known injury. TECHNIQUE: Multiplanar, multisequence imaging of the femur/thigh without IV contrast. COMPARISON: Left femur x-rays 09/06/2022. FINDINGS: There is chronic enthesopathy along the posteromedial aspect of the femoral shaft as seen on x-rays which corresponds to normal adductor tendon attachment upon the linea aspera of the femur. This can sometimes indicate an old traction injury. Regardless, no worrisome features. No stress fracture or stress response. Bone marrow signal is within normal limits. No evidence of tendon tear. No pathologic enhancement. There is moderate atrophy of the semimembranosus muscle along its distal one half. IMPRESSION: There is chronic enthesopathy along the posteromedial aspect of the femoral shaft as seen on x-rays which corresponds to normal adductor tendon attachment upon the linea aspera of the femur. This can sometimes indicate an old traction injury. Regardless, no worrisome features. No stress fracture or stress response. Bone marrow signal is within normal limits. [employer] Work Phone: MRI FEMUR LEFT W WO CONTRAST Ordered By: Tyler Capellan on 09-13-2022 [employer] Work Phone: MRI FEMUR LEFT W WO CONTRAST on 09-12-2022 Radiology Study observation (narrative) [employer] Work Phone: CBC with Auto Differentialon 09-06-2022 Absolute Eos # 0.40 [facility] [employer] Absolute Lymph # 1.30 [facility] Absolute [place] # 0.60 [facility] Basophils (Bld) [#/Vol] 0.00 10*3/uL [facility] [employer] Basophils/100 WBC (Bld) 0 % 0 - 2 % B ON [facility] [employer] Differential Type YES [facility] Eosinophils/100 WBC (Bld) 5 % 0 - 5 % [facility] [employer] Hematocrit (Bld) [Volume fraction] 44.9 % 41 - 53 % [facility] [employer] Hemoglobin (Bld) [Mass/Vol] 15.0 g/dL 13.5 - 17.5 g/dL [facility] Lymphocytes/100 WBC (Bld) 18 % 13 - 44 % [facility] [employer] MCH (RBC) [Entitic mass] 29.2 pg 26 - 34 pg [facility] [employer] MCHC (RBC) [Mass/Vol] 33.3 g/dL 31 - 37 g/dL B ON [facility] MCV (RBC) [Entitic vol] 87.7 fL 80 - 100 fL [facility] .[employer] Monocytes/100 WBC (Bld) 9 % 5 - 9 % B ON [facility] .[employer] Platelet distribution width (Bld) [Ratio] 14.6 % 12.1 - 15.2 % [facility] Platelets (Bld) [#/Vol] 309 10*3/uL [facility] RBC (Bld) [#/Vol] 5.12 10*6/uL 4.5 - 5.9 m/uL [facility] Segmented neutrophils/100 WBC (Bld) 68 % 39 - 75 % [facility] Segs Absolute 5.00 [facility] WBC (Bld) [#/Vol] 7.3 10*3/uL [facility] CKon 09-06-2022 CK [Catalytic activity/Vol] 103 U/L 39 - 308 U/L [facility] Comprehensive Metabolic Pane casey 09-06-2022 Albumin [Mass/Vol] 4.5 g/dL 3.5 - 5.2 g/dL [facility] ALP [Catalytic activity/Vol] 75 U/L 40 - 129 U/L [facility] ALT [Catalytic activity/Vol] 17 U/L 5 - 41 U/L [facility] Anion gap [Moles/Vol] 10 mmol/L 9 - 17 mmol/L [facility] AST [Catalytic activity/Vol] 19 U/L NINF - 40 U/L [facility] Bilirubin [Mass/Vol] 0.5 mg/dL 0.3 - 1 .2 mg/dL [facility] Calcium [Mass/Vol] 9.4 mg/dL 8.6 - 10. 4 mg/dL [facility] Chloride [Moles/Vol] 105 mmol/L 98 - 10 7 mmol/L [facility] CO2 [Moles/Vol] 27 mmol/L 20 - 31 mmol/L [facility] Creatinine [Mass/Vol] 1.12 mg/dL 0.70 - 1.20 mg/dL [facility] GFR/1.73 sq M.predicted MDRD (S/P/Bld) [Vol rate/Area] - PINF [facility] Comment on above: These results are not intended for use in patients <18 years of age. eGFR results are calculated without a race factor using the 2020 CKD-EPI equation. Careful clinical correlation is recommended, particularly when comparing to results calculated using previous equations. The CKD-EPI equation is less accurate in patients with extremes of muscle mass, extra-renal metabolism of creatine, excessive creatine ingestion, or following therapy that affects renal tubular secretion. Glucose [Mass/Vol] 104 mg/dL High 70 - 99 mg/dL [facility] Interpretation and review of laboratory results Abnormal [facility] [employer] Potassium [Moles/Vol] 4.5 mmol/L 3.7 - 5.3 mmol/L [facility] Protein [Mass/Vol] 7.6 g/dL 6.4 - 8.3 g/dL [facility] [employer] Sodium [Moles/Vol] 142 mmol/L 135 - 144 mmol/L [facility] [employer] Urea nitrogen [Mass/Vol] 15 mg/dL 8 - 23 mg/d L [facility] [employer] Urea nitrogen/Creatinine (Bld) [Mass ratio] 13 9 - 20 [facility] No Panel Informationon 09-06 [facility] TSH with Reflexon 09-06-2022 TSH Qn 1.42 m[IU]/L [facility] XR FEMUR LEFT (MIN 2 VIEWS)o n 09-06-2022 FINDINGS/IMPRESSION : 1. There is a 15 cm long area of thin periosteal new bone formation along the posterior aspect of the middle one third of the femur of unknown origin. 2. Consider MRI with and without contrast for further evaluation. [facility] EXAM: XR FEMUR LEFT (MIN 2 VIEWS) HISTORY: Reason for exam:->left thigh lateral spasm, rule out lytic lesion or muscle risk sarcoma no injury hx CAD , no change in ambulation COMPARISON: None. [facility] Tiago Lockwood Jr., MD - 09/06/2022 EXAM: XR FEMUR LEFT (MIN 2 VIEWS) HISTORY: Reason for exam:->left thigh lateral spasm, rule out lytic lesion or muscle risk sarcoma no injury hx CAD , no change in ambulation COMPARISON: None. IMPRESSION: FINDINGS/IMPRESSION : 1. There is a 15 cm long area of thin periosteal new bone formation along the posterior aspect of the middle one third of the femur of unknown origin. 2. Consider MRI with and without contrast for further evaluation. ANA ROSA [employer] Work Phone: Radiology Study observation (narrative) ANA ROSA ERNANDEZ .[employer] Work Phone: XR FEMUR LEFT (MIN 2 VIEWS)O rdered By: Tiago Lockwood on 09-06-2022 ANA ROSA [employer] Phone: ECHOCARDIO M/2D COMPLETEon 0 08-29-2022 ECHOCARDIO M/2D COMPLETE Patient: KEAUN ANTONIO Exam Date: 08/29/2022 : 1950 Gender:M Ordering : DR MO TREJO M.D. Admission #: [id number] Family : Order #: [id number] CLICK HERE TO VIEW EXAM ECHOCARDIOGRAM REPORT PROCEDURE: CARDIO PULMONARY ECHOCARDIO M/2D COMP INDICATIONS: Pre-operative examination, PTCA, hypertension COMPARISON: None. DESCRIPTION: COMPLETE ECHOCARDIOGRAM Real-time transthoracic echocardiography with 2D, M-mode, spectral and color flow Doppler performed. QUALITY: Technical quality was good. 64 250# BP 156/70 LEFT VENTRICLE: Normal chamber size. Mild concentric left ventricular hypertrophy. Normal systolic function. LV EF: Normal left ventricular ejection fraction, (>55%). DIASTOLIC: ATRIAL SEPTUM: LEFT ATRIUM: Moderate dilatation. RIGHT ATRIUM: Normal chamber size. RIGHT VENTRICLE: Normal chamber size. Normal right ventricular systolic function. TRICUSPID VALVE: Normal mobility and thickness. No stenosis with mild regurgitation. Doppler studies reveal moderately (45-60) elevated right sided pressures. RVSP 48 mmHg MITRAL VALVE: Moderate mitral annular calcification. Mildly thickened leaflets. No mitral valve stenosis. Trivial mitral regurgitation. AORTIC VALVE: Normal trileaflet appearance. Moderately calcified aortic valve. Mildly diminished mobility. No evidence of aortic valve stenosis. No aortic regurgitation. AORTIC ROOT: Normal diameter and appearance. PULMONIC VALVE: Normal thickness and mobility. No stenosis. No regurgitation. PERICARDIUM: No evidence of pericardial effusion. IVC: Not well visualized. PLEURA: CONCLUSION: 1. Mild concentric left ventricular hypertrophy with normal systolic function. LVEF is 60%. 2. Normal right ventricular size and systolic function. 3. Moderate left atrial dilatation. 4. Calcified aortic valve with no significant stenosis or regurgitation. 5. Mild tricuspid regurgitation. 6. Moderately elevated right-sided pressures. Adult Echocardiography Procedure Report Left Ventricle LVEDD (3.7 - 5.6 cm): 4.49 cm LVESD (2.2 - 4.0 cm): 3.06 cm, 3.02 cm LVIVS thickness (0.6 - 1.2 cm): 1.23 cm LVPW thickness (0.5 - 1.0 cm): 1.25 cm e': 0.08 m/s E - e': 19.29 LVOT Max Gradient: 2.75 mm[Hg] Peak Velocity (LVOT): 0.83 m/s Mean Velocity (LVOT): 0.59 m/s LVOT Diameter 2.18 cm, 2.63 cm Left Ventricular Ejection Fraction: 60 % Left Atrium LA Volume Index (2D A2C): 104.38 ml, 104.38 ml Left Atrium Systolic Dimension: 4.27 cm Mitral Valve MV E to A Ratio: 1.22 Mitral Valve A-Wave Peak Velocity: 1.24 m/s Mitral Valve E-Wave Peak Velocity: 1.51 m/s Right Ventricle Aorta AO Root Diam: 3.49 cm Aortic Valve AoV Area (Peak Charli): 4.09 cm2, 4.09 cm2 AoV Area (VTI): 4.64 cm2, 4.64 cm2 Peak Velocity(Antegrade Flow): 0.92 m/s Peak Gradient(Antegrade Flow): 3.36 mm[Hg] Mean Velocity(Antegrade Flow): 0.66 m/s Mean Gradient(Antegrade Flow): 1.93 mm[Hg] Velocity Time Integral: 24.16 cm Tricuspid Valve Peak Velocity (Regurgitant Flow): 3.36 m/s Peak Velocity: 0.60 m/s Pulmonic Valve Peak Velocity: 1.33 m/s, 1.24 m/s Peak Gradient: 7.06 mm[Hg], 6.15 mm[Hg] Right Atrium Right Atrium Systolic Pressure: 31.66 ml, 31.66 ml Dictated by: Gerhard Hess M.D. on 08/30/2022 at 16:54 Approved by: Gerhard Hess M.D. on 08/30/2022 at 17:06 Normal [facility] NM STRESS/REST MULTIon 08-29 CT STRESS/REST MULTI Patient: KEANU ANTONIO Exam Date: 08/29/2022 : 1950 Gender:M Ordering : DR MO TREJO M.D. Admission #: [id number] Family : Order #: [id number] CLICK HERE TO VIEW EXAM RADIOLOGY REPORT PROCEDURE: RADIONUCLIDE IMAGING STRESS/REST MULTI COMPARISON: None. INDICATIONS: Preoperative cardiovascular examination TECHNIQUE: Exam Description: Stress/Rest one day protocol gated SPECT Rest Imagin.3 mCi Tc-99m Cardiolite IV on 08/29/2022 Stress Imaging 30.5 mCi Tc-99m Cardiolite IV on 08/29/2022 Exercise Protocol: 0.4 mg Lexiscan given IV Heart Rate (bpm): Rest: 55 Max: 81 PMHR: 54 Blood Pressure: Rest: 150/84 Max: 184/92 Symptoms: Rest and peak stress ECG findings were normal and the exercise portion of the study was normal per attending physician Dr. Hess . For more details please see separate cardiac stress test report. FINDINGS: QUALITY OF STUDY: PERFUSION DEFECT: LOCATION: Basal inferior. Mid-inferolateral. Apical inferior. SIZE: Medium (3-4 segments). SEVERITY: Mild. TYPE: Persistent. WALL MOTION: Normal. LV SIZE: Enlarged; EDV 144 mL. TID / TCD: None; 1.0 LVEF: Normal. Calculated EF 56%. SUMMARY: Myocardial perfusion imaging study has ABNORMAL findings. CONCLUSION: 1. No acute or reversible ischemia. 2. Mild-moderate fixed inferior lateral wall perfusion defect versus attenuation artifact. 3. Left ventricle ejection fraction is at lower limits of normal. 4. Mild left ventriculomegaly, 144 mL. Normal wall motion. Dictated by: Glenny Bae M.D. on 08/30/2022 at 13:00 Approved by: Glenny Bae M.D. on 08/30/2022 at 13:12 Normal [facility] PROF CHEM 8 (BAS METB)on Anion gap [Moles/Vol] 13.2 mmol/L Normal [facility] Comment on above: Performed By: #### B MP #### [facility] [address] [place] [address] Dr. Shala Marie Calcium [Mass/Vol] 8.9 mg/dL Normal 8.5-10.1 [facility] Comment on above: Performed By: #### B MP #### [facility] [address] [address] [address] Shala Marie Chloride [Moles/Vol] 105 mmol/L Normal 98-107 [facility] Comment on above: Performed By: #### B MP #### [facility] [address] [address] [address] Shala Marie CO2 [Moles/Vol] 28.0 mmol/L Normal 21.0-32.0 [facility] [place] Comment on above: Performed By: #### B MP #### [facility] [address] [address] [address] Shala Marie Creatinine [Mass/Vol] 1.15 mg/dL Normal 0.70-1.30 [facility] Comment on above: Performed By: #### B MP #### [facility] [address] [address] [address] Shala Marie EGFR-AF JAMAICAN >60 Normal >=60 [facility] [place] Comment on above: Performed By: #### B MP #### [facility] [address] [address] [address] Shala Marie EGFR-NON AF JAMAICAN >60 Normal >=60 [facility] Comment on above: Performed By: #### B MP #### [facility] [address] [address] [address] Shala Marie Glucose [Mass/Vol] 118 mg/dL Critically high 74-[address] [facility] Comment on above: Performed By: #### B MP #### [facility] [address] [address] [address] Shala Marie Potassium [Moles/Vol] 4.2 mmol/L Normal 3.5-5.1 [facility] Comment on above: Performed By: #### B MP #### [facility] [address] [address] [address] Shala Marie Sodium [Moles/Vol] 142 mmol/L Normal 136-145 [facility] Comment on above: Performed By: #### B MP #### [facility] [address] [place], [place] [address] Dr. Shala Marie Urea nitrogen [Mass/Vol] 25.0 mg/dL Critically high 7.0-18 .0 [facility] Comment on above: Performed By: #### B MP #### [facility] [address] [place], [place] [address] Dr. Shala Marie Urea nitrogen/Creatinine [Mass ratio] 21.7 mg/mg Normal [facility] Comment on above: Performed By: #### B MP #### [facility] [id number] Shala Marie XR KNEE RIGHT (MIN 4 VIEWS)o n 08-02-2022 FINDINGS/IMPRESSION : Normal alignment. Minimal patellofemoral compartment osteophytes. 4 mm intra-articular body. No joint effusion. [facility] EXAM: XR KNEE RIGHT (MIN 4 VIEWS) INDICATION: Reason for exam:->right knee medial knee pain chronic expect OA COMPARISON: None. TECHNIQUE: Radiographs as described above [facility] Glenny Graves MD - 08/02/2022 EXAM: XR KNEE RIGHT (MIN 4 VIEWS) INDICATION: Reason for exam:->right knee medial knee pain chronic expect OA COMPARISON: None. TECHNIQUE: Radiographs as described above IMPRESSION: FINDINGS/IMPRESSION : Normal alignment. Minimal patellofemoral compartment osteophytes. 4 mm intra-articular body. No joint effusion. [employer] [facility] Work Phone: Radiology Study observation (narrative) [facility] .[employer] Work Phone: XR KNEE RIGHT (MIN 4 VIEWS)O rdered By: Glenny Graves on 08-02-2022 [facility]ight[facility]ITAL[facility] Work Phone: COVID-19, Rapidon 03-31-2022 Interpretation and review of laboratory results Abnormal [facility]ITAL[facility] SARS-CoV-2 (COVID-19) RNA EVELIA+probe Ql (Unsp spec) Detected Abnormal Not Detected [facility] [employer] Comment on above: Rapid NAAT: The specimen is POSITIVE for SARS-Cov-2, the novel coronavirus associated with COVID-19. This test has been authorized by the FDA under an Emergency Use Authorization (EUA) for use by authorized laboratories. The ID NOW COVID-19 assay is designed to detect the virus that causes COVID-19 in patients with signs and symptoms of infection who are suspected of COVID-19. An individual without symptoms of COVID-19 and who is not shedding SARS-CoV-2 virus would expect to have a negative (not detected) result in this assay. Fact sheet for Healthcare Providers: https://www.fda.gov/media/065241/download Fact sheet for Patients: https://www.fda.gov/media/764274/download Methodology: Isothermal Nucleic Acid Amplification Results reported to the appropriate Health Department Specimen Description .NASOPHARYNGEAL SWAB [facility] Basic Metabolic Panelon 01-08 Calcium [Mass/Vol] 8.6 mg/dL Normal 8.2-10.2 [facility] Comment on above: Order Comment: Healt hcare Worker?: N Performed By: #### C R[facility]GE [facility] #### [facility] [address] [place] [address] [place] Chloride [Moles/Vol] 106 mmol/L Normal 95-[address] [facility] Comment on above: Order Comment: Healt hcare Worker?: N Performed By: #### C [facility]GE [facility] #### [facility] [address] [id number] [facility] CO2 [Moles/Vol] 26.1 mmol/L Normal 22.0-30.[address] [facility] Comment on above: Order Comment: Healt hcare Worker?: N Performed By: #### C OVID [facility] #### [facility] [address] [id number] [place] Creatinine [Mass/Vol] 1.10 mg/dL Normal 0.64-1.27 [facility] Comment on above: Order Comment: Healt hcare Worker?: N Performed By: #### C [facility] #### [facility] [address] [id number] [place] Creatinine Clr Calc Pharmacy 75.30 [facility] Comment on above: Order Comment: Healt hcare Worker?: N Performed By: #### [facility] #### [facility] [address] [place] [address] [place] Estimated GFR ( Dora > 60 [facility] Comment on above: Order Comment: Healt hcare Worker?: N Result Comment: GFR estimated reference range: According to KDOQI guidelines, <60 ml/min/1.73m2 is sufficient to diagnose a patient with chronic kidney disease. Performed By: #### [facility] [address] [facility] #### [facility] [address] [place] [address] [place] Estimated GFR (Non- Am > 60 [facility] Comment on above: Order Comment: Healt hcare Worker?: N Performed By: #### [facility] #### [address] Glucose [Mass/Vol] 127 mg/dL High 70-100 [facility] Comment on above: Order Comment: Healt hcare Worker?: N Result Comment: [place] Glucose Reference Range is dependent on time and content of last meal. Glucose of more than 200 mg/dL in a nonstressed, ambulatory subject supports the diagnosis of Diabetes Mellitus. ADA recommended reference range Performed By: #### [facility] [address] [facility] #### [address] Potassium [Moles/Vol] 3.2 mmol/L Low 3.5-5.1 [facility] Comment on above: Order Comment: Healt hcare Worker?: N Performed By: #### C [facility] [address] [facility] #### [facility] [address] [phone] [place] Sodium [Moles/Vol] 140 mmol/L Normal 136-146 [facility] Comment on above: Order Comment: Healt hcare Worker?: N Performed By: #### C [facility]GE [address] [facility] #### [facility] [address] [id number] [place] Urea nitrogen [Mass/Vol] 12 mg/dL Normal 9-23 [facility] Comment on above: Order Comment: Healt hcare Worker?: N Performed By: #### C [facility]GE [address] [facility] #### [facility] [address] [phone] [facility] Basophils Auto (Bld) [#/Vol] Ordered By: Cesar Gar on 01-28-2022 Basophils (Bld) [#/Vol] 0.0 10*3/uL 0.0-0.2 [facility] Basophils/100 WBC Auto (Bld) Ordered By: Cesar Gar on 01-28-2022 Basophils/100 WBC (Bld) 0.6 % . F [facility] Blood hemoglobin measurement (mass/volume)Ordered By: Cesar Gar on 01-28-2022 Hemoglobin (Bld) [Mass/Vol] 13.8 g/dL 13.0-17.0 [facility] Blood leukocytes automated c ount (number/volume)Ordered By: Cesar Gar on 01-28-2022 WBC (Bld) [#/Vol] 5.6 10*3/uL 4.5-11.0 [facility] Cholesterol [Mass/volume] in Serum or PlasmaOrdered By: Cesar Gar on 01-28-2022 Cholesterol [Mass/Vol] 122 mg/dL 140-200 [facility] Comment on above: Chol less than 200 m g/dl low risk Chol 201-239 mg/dl borderline risk Chol 240 mg/dl and greater high risk Cholesterol in LDL Calc [Mas s/Vol]Ordered By: Cesar Gar on 01-28-2022 Cholesterol in LDL [Mass/Vol] 57 mg/dL 0-100 [facility] Comment on above: LDL ATP III CLASSIFI CATION LDL less than 100 mg/dL Optimal LDL 100-129 mg/dL Near or above optimal LDL 130-159 mg/dL Borderline high LDL 160-189 mg/dL High LDL greater than 189 mg/dL Very high Cholesterol in VLDL Calc [Ma ss/Vol]Ordered By: Cesar Gar on 01-28-2022 Cholesterol in VLDL [Mass/Vol] 37 mg/dL [facility] Complete Blood Count Auto Di ffon 01-28-2022 Basophils (Bld) [#/Vol] 0.0 10*3/uL Normal 0.0-0.2 [facility] Comment on above: Result Comment: PERF ORMED BY: [facility] [address] [place] [address] PATHOLOGIST LANGUAGE INTERPRETER ELFEGO ISLAS M.D. Performed By: #### M G, BMP, LIPID, CBC ####[place] [id number] [place] [id number] [facility] Basophils/100 WBC (Bld) 0.6 % Normal . [facility] Comment on above: Performed By: #### M G, BMP, LIPID, CBC ####[place] [id number] [facility] Eosinophils (Bld) [#/Vol] 0.3 10*3/uL Normal 0.0-0.45 [facility] Comment on above: Performed By: #### M G, BMP, LIPID, CBC ####[place] [id number] [facility] Eosinophils/100 WBC (Bld) 4.8 % Normal . [facility] Comment on above: Performed By: #### M G, BMP, LIPID, CBC ####[place] [id number] [facility] Erythrocyte distribution width (RBC) [Ratio] 14.3 % Normal 12.0-14.8 [facility] Comment on above: Performed By: #### M G, BMP, LIPID, CBC ####[place] [id number] [facility] Hematocrit (Bld) [Volume fraction] 40.9 % Normal 38.8-50.0 [facility] Comment on above: Performed By: #### M G, BMP, LIPID, CBC ####[place] [id number] [facility] Hemoglobin (Bld) [Mass/Vol] 13.8 g/dL Normal 13.0-17.0 [facility] Comment on above: Performed By: #### M G, BMP, LIPID, CBC ####[place] [id number] [facility] Lymphocytes (Bld) [#/Vol] 1.1 10*3/uL Normal 1.00-4.8 [facility] Comment on above: Performed By: #### M G, BMP, LIPID, CBC ####[address] Lymphocytes/100 WBC (Bld) 18.9 % Normal . [facility] Comment on above: Performed By: #### M G, BMP, LIPID, CBC ####[address] MCH (RBC) [Entitic mass] 29.5 pg Normal 27.5-35.2 [facility] Comment on above: Performed By: #### M G, BMP, LIPID, CBC ####[address] MCV (RBC) [Entitic vol] 87.6 fL Normal 83.5-101 [facility] Comment on above: Performed By: #### M G, BMP, LIPID, CBC ####[address] Mean Corpuscular HGB Conc 33.6 g/dL Normal 32.5-35.6 [facility] Comment on above: Performed By: #### M G, BMP, LIPID, CBC ####[address] Monocytes (Bld) [#/Vol] 0.6 10*3/uL Normal 0.0-0.8 [facility] Comment on above: Performed By: #### M G, BMP, LIPID, CBC ####[address] Monocytes/100 WBC (Bld) 10.0 % Normal . [facility] Comment on above: Performed By: #### M G, BMP, LIPID, CBC ####[address] Neutrophils (Bld) [#/Vol] 3.7 10*3/uL Normal 1.8-7.7 [facility] Comment on above: Performed By: #### M G, BMP, LIPID, CBC ####[address] Neutrophils/100 WBC (Bld) 65.7 % Normal . [facility] Comment on above: Performed By: #### M G, BMP, LIPID, CBC ####[address] Nucleated RBC/100 WBC (Bld) [Ratio] 0.1 % Normal 0-0.5 [facility] Comment on above: Performed By: #### M G, BMP, LIPID, CBC ####[address] Platelet mean volume (Bld) [Entitic vol] 8.6 fL Normal 6.6-10.1 [facility] Comment on above: Performed By: #### M G, BMP, LIPID, CBC ####[address] Platelets (Bld) [#/Vol] 267 10*3/uL Normal 150-450 [facility] Comment on above: Performed By: #### M G, BMP, LIPID, CBC ####[address] RBC (Bld) [#/Vol] 4.67 10*6/uL Normal 3.90-5.60 [facility] Comment on above: Performed By: #### M G, BMP, LIPID, CBC ####[address] WBC (Bld) [#/Vol] 5.6 10*3/uL Normal 4.5-11.0 [facility] Comment on above: Performed By: #### M G, BMP, LIPID, CBC ####[address] Creatinine and Glomerular fi ltration rate.predicted panel (S/P/Bld)Ordered By: Cesar Gar on 01-28-2022 Creatinine [Mass/Vol] 1.10 mg/dL 0.64-1.27 [facility] Eosinophils Auto (Bld) [#/Vo l]Ordered By: Cesar Gar on 01-28-2022 Eosinophils (Bld) [#/Vol] 0.3 10*3/uL 0.0-0.45 [facility] Eosinophils/100 WBC Auto (Bl d)Ordered By: Cesar Gar on 01-28-2022 Eosinophils/100 WBC (Bld) 4.8 % . [facility] Erythrocyte distribution wid th Auto (RBC) [Ratio]Ordered By: Cesar Gar on 01-28-2022 Erythrocyte distribution width (RBC) [Ratio] 14.3 % 12.0-14.8 [facility] Estimated glomerular filtrat ion rate (GFR) non- AmericanOrdered By: Cesar Gar on 01-28-2022 GFR/1.73 sq M.predicted among non-blacks MDRD (S/P/Bld) [Vol rate/Area] > 60 mL/Min [facility] Hematocrit Auto (Bld) [Volum e fraction]Ordered By: Cesar Gar on 01-28-2022 Hematocrit (Bld) [Volume fraction] 40.9 % 38.8-50.0 [facility] Laboratory - Chemistry and C hemistry - challengeOrdered By: CesarGodwin on 01-28-2022 Magnesium [Mass/Vol] 1.9 mg/dL 1.6-2.[address] [facility] Laboratory - Hematology and Cell countsOrdered By: Cesar Gar on 01-28-2022 Nucleated RBC/100 WBC (Bld) [Ratio] 0.1 % 0-0.5 [facility] Lipid Panelon 01-28-2022 Cholesterol [Mass/Vol] 122 mg/dL Low 140-200 [facility] Comment on above: Order Comment: Healt hcare Worker?: N Result Comment: Chol less than 200 mg/dl low risk Chol 201-239 mg/dl borderline risk Chol 240 mg/dl and greater high risk Performed By: #### C OVID 19 [facility] #### [address] Cholesterol in HDL [Mass/Vol] 28 mg/dL Low 29-71 [facility] Comment on above: Order Comment: Healt hcare Worker?: N Result Comment: HDL CHOL ATP-III CLASSIFICATION Cardiovascular Risk HDL > or equal to 60 mg/dL LOW HDL < 40 mg/dL HIGH Performed By: #### C OVID 19 [facility] #### [facility] [address] Cholesterol.total/Choles terol in HDL [Mass ratio] 4.4 {ratio} Normal <5.0 [facility] Comment on above: Order Comment: Healt hcare Worker?: N Result Comment: PERF ORMED BY: [place] [address] PATHOLOGIST LANGUAGE INTERPRETER ELFEGO ISLAS M.D. Performed By: #### C OVID 19 [facility] #### [address] LDL Cholesterol,Calculated 57 mg/dL Normal 0-100 [facility] Comment on above: Order Comment: Healt hcare Worker?: N Result Comment: LDL ATP III CLASSIFICATION LDL less than 100 mg/dL Optimal LDL 100-129 mg/dL Near or above optimal LDL 130-159 mg/dL Borderline high LDL 160-189 mg/dL High LDL greater than 189 mg/dL Very high Performed By: #### C OVID 19 [facility] #### [address] Triglyceride w/Reflex 185 mg/dL High 35-149 [facility] Comment on above: Order Comment: Healt hcare Worker?: N Result Comment: TRIG ATP III CLASSIFICATION TRIG less than 150 mg/dL Normal TRIG 150-199 mg/dL Borderline high TRIG 200-500 mg/dL High TRIG greater than 500 mg/dL Very high Standard traceable to the Center for Disease Conrtrol and Prevention (CDC) test method. Performed By: #### C OVID 19 [facility] #### [facility] [address] VLDL CHOLESTEROL 37 mg/dL Normal [facility] Comment on above: Order Comment: Healt hcare Worker?: N Performed By: #### C OVID 19 [facility] #### [facility] [address] Lymphocytes Auto (Bld) [#/Vo l]Ordered By: Cesar Gar on 01-28-2022 Lymphocytes (Bld) [#/Vol] 1.1 10*3/uL 1.00-4.8 [facility] Lymphocytes/100 WBC Auto (Bl d)Ordered By: Cesar Cong on 01-28-2022 Lymphocytes/100 WBC (Bld) 18.9 % . [facility] MCH Auto (RBC) [Entitic mass ]Ordered By: Cesar Cong on 01-28-2022 MCH (RBC) [Entitic mass] 29.5 pg 27.5-35.2 [facility] MCHC Auto (RBC) [Mass/Vol]Or dered By: Cesar Cong on 01-28-2022 MCHC (RBC) [Mass/Vol] 33.6 g/dL 32.5-35.6 [facility] MCV Auto (RBC) [Entitic vol] Ordered By: Cesar Cong on 01-28-2022 MCV (RBC) [Entitic vol] 87.6 fL 83.5-101 [facility] Magnesiumon 01-28-2022 Magnesium [Mass/Vol] 1.9 mg/dL Normal 1.6-2.[address] [facility] Comment on above: Order Comment: Healt hcare Worker?: N Performed By: #### C OVID 19 [facility] #### [facility] [address] Monocytes Auto (Bld) [#/Vol] Ordered By: Cesar Cong on 01-28-2022 Monocytes (Bld) [#/Vol] 0.6 10*3/uL 0.0-0.8 [facility] Monocytes/100 WBC Auto (Bld) Ordered By: Cesar Cong on 01-28-2022 Monocytes/100 WBC (Bld) 10.0 % . [facility] Neutrophils Auto (Bld) [#/Vo l]Ordered By: Cesar Cong on 01-28-2022 Neutrophils (Bld) [#/Vol] 3.7 10*3/uL 1.8-7.7 [facility] Neutrophils/100 WBC Auto (Bl d)Ordered By: Cesar Cong on 01-28-2022 Neutrophils/100 WBC (Bld) 65.7 % . [facility] No Panel InformationOrdered By: Cesar Gar on 01-28-2022 Estimated GFR () > 60 mL/Min [facility] Comment on above: GFR estimated refere nce range: According to KDOQI guidelines, <60 ml/min/1.73m2 is sufficient to diagnose a patient with chronic kidney disease. Pharmacy Creatinine Clearance (Chem 75.30 [facility] Platelet mean volume Auto (B ld) [Entitic vol]Ordered By: Cesar Gar on 01-28-2022 Platelet mean volume (Bld) [Entitic vol] 8.6 fL 6.6-10.1 [facility] Platelets Auto (Bld) [#/Vol] Ordered By: Cesar Gar on 01-28-2022 Platelets (Bld) [#/Vol] 267 10*3/uL 150-450 [facility] RBC Auto (Bld) [#/Vol]Ordere d By: Cesar Gar on 01-28-2022 RBC (Bld) [#/Vol] 4.67 10*6/uL 3.90-5.60 [facility] Serum or plasma calcium cydney urement (mass/volume)Ordered By: Cesar Gar on 01-28-2022 Calcium [Mass/Vol] 8.6 mg/dL 8.2-10.2 [facility] Serum or plasma chloride jorge surement (moles/volume)Ordered By: Cesar Gar on 01-28-2022 Chloride [Moles/Vol] 106 mmol/L 95-[address] [facility] Serum or plasma glucose cydney urement (mass/volume)Ordered By: Cesar Gar on 01-28-2022 Glucose [Mass/Vol] 127 mg/dL 70-100 [facility] Comment on above: ADA recommended refe rence range Random Glucose Reference Range is dependent on time and content of last meal. Glucose of more than 200 mg/dL in a nonstressed, ambulatory subject supports the diagnosis of Diabetes Mellitus. Serum or plasma high density lipoprotein (HDL) cholesterol measurementOrdered By: Cesar Gar on 01-28-2022 Cholesterol in HDL [Mass/Vol] 28 mg/dL [facility] Comment on above: HDL CHOL ATP-III CLA SSIFICATION Cardiovascular Risk HDL > or equal to 60 mg/dL LOW HDL < 40 mg/dL HIGH Serum or plasma potassium me asurement (moles/volume)Ordered By: CesarGodwin on 01-28-2022 Potassium [Moles/Vol] 3.2 mmol/L 3.5-5.1 [facility] Serum or plasma sodium measu rement (moles/volume)Ordered By: CesarFosteram on 01-28-2022 Sodium [Moles/Vol] 140 mmol/L 136-146 [facility] Serum or plasma total carbon dioxide measurement (moles/volume)Ordered By: Cesar Cong on 01-28-2022 CO2 [Moles/Vol] 26.1 mmol/L 22.0-30.[address] [facility] Serum or plasma total choles terol/high density lipoprotein (HDL) cholesterol mass ratOrdered By: Cesar Cong on 01-28-2022 Cholesterol.total/Choles terol in HDL [Mass ratio] 4.4 {ratio} <5.0 [facility] Serum or plasma urea nitroge n measurement (mass/volume)Ordered By: Cesar Cong on 01-28-2022 Urea nitrogen [Mass/Vol] 12 mg/dL 04-01 [facility] Triglyceride [Mass/volume] i n Serum or PlasmaOrdered By: [facility] on 01-28-2022 Triglyceride [Mass/Vol] 185 mg/dL 35-149 [facility] Comment on above: TRIG ATP III CLASSIF ICATION TRIG less than 150 mg/dL Normal TRIG 150-199 mg/dL Borderline high TRIG 200-500 mg/dL High TRIG greater than 500 mg/dL Very high Standard traceable to the Center for Disease Conrtrol and Prevention (CDC) test method. Troponin I High Sensitivityo n 01-28-2022 Troponin I High Sensitivity 31 pg/mL High 0-20 [facility] Comment on above: Result Comment: PERF ORMED BY: [facility] [address] [place] [address] PATHOLOGIST LANGUAGE INTERPRETER ELFEGO ISLAS M.D. Performed By: #### C OVID 19 [facility] #### [address] A1C with Estimated Average G moisesn 01-27-2022 Glucose [Mass/Vol] 114 mg/dL Normal [facility] Comment on above: Result Comment: PERF ORMED BY: [place] [address] PATHOLOGIST LANGUAGE INTERPRETER ELFEGO ISLAS M.D. Performed By: #### C OVID 19 [facility] #### [address] HbA1c (Bld) [Mass fraction] 5.6 % Normal 4.3-5.6 [facility] Comment on above: Result Comment: Incr eased risk for diabetes: 5.7 - 6.4 diabetes: >6.4 glycemic control for adults with diabetes: <7.0 Performed By: #### C [address] #### [address] Activated partial thrombopla stin time (aPTT) in platelet poor plasma by coagulation aOrdered By: Siomara Batista on 01-27-2022 aPTT Coag (PPP) [Time] 29.4 s 25.1-36.5 [facility] B-Type Natriuretic Peptideon 01-27-2022 Natriuretic peptide B (Bld) [Mass/Vol] 106.0 pg/mL High 5-100 [facility] Comment on above: Result Comment: PERF ORMED BY: [place] [address] PATHOLOGIST LANGUAGE INTERPRETER ELFEGO ISLAS M.D. Performed By: #### C RIDGE 19 [facility] #### [place] [id number] [facility] Basic Metabolic Panelon 01-08 Calcium [Mass/Vol] 9.3 mg/dL Normal 8.2-10.2 [facility] Comment on above: Performed By: #### C KMB, CK, BMP, BNP, HS TROP, CBC, PTT, PT #### [address] [place] [address] [place] Chloride [Moles/Vol] 105 mmol/L Normal 95-[address] [facility] Comment on above: Performed By: #### C KMB, CK, BMP, BNP, HS TROP, CBC, PTT, PT #### [facility] [address] CO2 [Moles/Vol] 26.6 mmol/L Normal 22.0-30.[address] [facility] Comment on above: Performed By: #### C KMB, CK, BMP, BNP, HS TROP, CBC, PTT, PT #### [address] Creatinine [Mass/Vol] 1.19 mg/dL Normal 0.64-1.27 [facility] Comment on above: Performed By: #### C KMB, CK, BMP, BNP, HS TROP, CBC, PTT, PT #### [address] Creatinine Clr Calc Pharmacy 69.61 [facility] Comment on above: Result Comment: PERF ORMED BY: [place] [address] PATHOLOGIST LANGUAGE INTERPRETER ELFEGO ISLAS M.D. Performed By: #### C KMB, CK, BMP, BNP, HS TROP, CBC, PTT, PT #### [address] Estimated GFR ( Dora > 60 [facility] Comment on above: Result Comment: GFR estimated reference range: According to KDOQI guidelines, <60 ml/min/1.73m2 is sufficient to diagnose a patient with chronic kidney disease. Performed By: #### C KMB, CK, BMP, BNP, HS TROP, CBC, PTT, PT #### [address] Estimated GFR (Non- Am 60 [facility] Comment on above: Performed By: #### C KMB, CK, BMP, BNP, HS TROP, CBC, PTT, PT #### [place] [id number] [place] Glucose [Mass/Vol] 174 mg/dL High 70-100 [facility] Comment on above: Result Comment: [facility] Glucose Reference Range is dependent on time and content of last meal. Glucose of more than 200 mg/dL in a nonstressed, ambulatory subject supports the diagnosis of Diabetes Mellitus. ADA recommended reference range Performed By: #### C KMB, CK, BMP, BNP, HS TROP, CBC, PTT, PT #### [facility] [address] Potassium [Moles/Vol] 3.4 mmol/L Low 3.5-5.1 [facility] Comment on above: Performed By: #### C KMB, CK, BMP, BNP, HS TROP, CBC, PTT, PT #### [facility] [address] Sodium [Moles/Vol] 141 mmol/L Normal 136-146 [facility] Comment on above: Performed By: #### C KMB, CK, BMP, BNP, HS TROP, CBC, PTT, PT #### [facility] [address] Urea nitrogen [Mass/Vol] 15 mg/dL Normal 9-23 [facility] Comment on above: Performed By: #### C KMB, CK, BMP, BNP, HS TROP, CBC, PTT, PT #### [facility] [address] Basophils Auto (Bld) [#/Vol] Ordered By: Siomara Batista on 01-27-2022 Basophils (Bld) [#/Vol] 0.0 10*3/uL 0.0-0.2 [facility] Basophils/100 WBC Auto (Bld) Ordered By: Siomara Batista on 01-27-2022 Basophils/100 WBC (Bld) 0.8 % . [facility] Blood hemoglobin measurement (mass/volume)Ordered By: Siomara Batista on 01-27-2022 Hemoglobin (Bld) [Mass/Vol] 14.1 g/dL 13.0-17.0 [facility] Blood leukocytes automated c ount (number/volume)Ordered By: Siomara Larsonjoceline on 01-27-2022 WBC (Bld) [#/Vol] 5.6 10*3/uL 4.5-11.0 [facility] COVID-19 Antigenon 2 COVID-19 Antigen Healthcare Worker?: N Reference Range: Negative Negative results, from patients with symptom onset beyond five days, should be treated as presumptive and confirmation with a molecular assay, if necessary, for patient management, may be performed. Negative results do not rule out COVID-19 and should not be used as the sole basis for treatment or patient management decisions, including infection control decisions. Negative results should be considered in the context of a patient's recent exposures, history and the presence of clinical signs and symptoms consistent with COVID-19. The Skye SARS Antigen ADELA does not differentiate between SARS-CoV and SARS-CoV-2. This test was developed and its performance characteristic determined by [employer] and validated at [facility]. This test has not been FDA cleared or approved. This test has been authorized by FDA under an Emergency Use Authorization (EUA). This test has been validated in accordance with the FDA's Guidance Document (Policy for Diagnostics Testing in Laboratories Certified to Perform High Complexity Testing under CLIA prior to Emergency Use Authorization for Coronavirus Disease-2019 during the Public Health Emergency) issued on October 10, 2019. This test is only authorized for the duration of time the declaration that circumstances exist justifying the authorization of the emergency use of in vitro diagnostic tests for detection of SARS-CoV-2 virus and/or diagnosis of COVID-19 infection under section 564(b)(1) of the Act, 21 U.S.C. 360bbb-3(b)(1), unless the authorization is terminated or revoked sooner. SARS-CoV+SARS-CoV-2 (COVID-19) Ag [Presence] in Respiratory specimen by Rapid immunoassay Negative for SARS Antigen by ADELA PERFORMED BY: [address] [address] PATHOLOGIST LANGUAGE INTERPRETER ELFEGO ISLAS M.D. 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 This test has not been FDA cleared or approved. This test has been authorized by FDA under an Emergency Use Authorization (EUA). This test has been validated in accordance with the FDA's Guidance Document (Policy for Diagnostics Testing in Laboratories Certified to Perform High Complexity Testing under CLIA prior to Emergency Use Authorization for Coronavirus Disease-2019 during the Public Health Emergency) issued on October 10, 2019. This test is only authorized for the duration of time the declaration that circumstances exist justifying the authorization of the emergency use of in vitro diagnostic tests for detection of SARS-CoV-2 virus and/or diagnosis of COVID-19 infection under section 564(b)(1) of the Act, 21 U.S.C. 360bbb-3(b)(1), unless the authorization is terminated or revoked sooner. PERFORMED BY: [place] [address] PATHOLOGIST LANGUAGE INTERPRETER ELFEGO ISLAS M.D. Performed By: #### C OVID 19 [facility] #### [facility] [address] [place], [place] [id number] [facility] COVID-19 Positive/NegativeOr dered By: Siomara Batista on 01-27-2022 SARS-CoV-2 (COVID-19) N gene EVELIA+probe Ql (Resp) Negative Negative [facility] Comment on above: Testing for SARS-CoV -2 by RT-PCR This test was developed and its performance characteristics determined by [employer] ([employer]) and validated at the [facility]. This test has not been FDA cleared or approved. This test has been authorized by FDA under an Emergency Use Authorization (EUA). This test has been validated in accordance with the FDA's Guidance Document (Policy for Diagnostics Testing in Laboratories Certified to Perform High Complexity Testing under CLIA prior to Emergency Use Authorization for Coronavirus Disease-2019 during the Public Health Emergency) issued on October 10, 2019. This test is only authorized for the duration of time the declaration that circumstances exist justifying the authorization of the emergency use of in vitro diagnostic tests for detection of SARS-CoV-2 virus and/or diagnosis of COVID-19 infection under section 564(b)(1) of the Act, 21 U.S.C. 360bbb-3(b)(1), unless the authorization is terminated or revoked sooner. COVID-19 SOFIAOrdered By: Yamini Batista on 01-27-2022 SARS-CoV+SARS-CoV-2 (COVID-19) Ag IA.rapid Ql (Resp) Negative Negative [facility] Comment on above: This is a duplicate Skye SARS Antigen (ADELA) result to be used for statistical tracking purpose only. Complete Blood Count Auto Di ffon 01-27-2022 Basophils (Bld) [#/Vol] 0.0 10*3/uL Normal 0.0-0.2 [facility] Comment on above: Result Comment: PERF ORMED BY: [place] [address] PATHOLOGIST LANGUAGE INTERPRETER ELFEGO ISLAS M.D. Performed By: #### C KMB, CK, BMP, BNP, HS TROP, CBC, PTT, PT #### [facility] [address] [place] [address] Basophils/100 WBC (Bld) 0.8 % Normal . [facility] Comment on above: Performed By: #### C KMB, CK, BMP, BNP, HS TROP, CBC, PTT, PT #### [facility] [address] [place] [address] [place] Eosinophils (Bld) [#/Vol] 0.3 10*3/uL Normal 0.0-0.45 [facility] Comment on above: Performed By: #### C KMB, CK, BMP, BNP, HS TROP, CBC, PTT, PT #### [facility] [address] [place] [address] [place] Eosinophils/100 WBC (Bld) 4.6 % Normal . [facility] Comment on above: Performed By: #### C KMB, CK, BMP, BNP, HS TROP, CBC, PTT, PT #### [address] Erythrocyte distribution width (RBC) [Ratio] 14.4 % Normal 12.0-14.8 [facility] Comment on above: Performed By: #### C KMB, CK, BMP, BNP, HS TROP, CBC, PTT, PT #### [address] Hematocrit (Bld) [Volume fraction] 43.1 % Normal 38.8-50.0 [facility] Comment on above: Performed By: #### C KMB, CK, BMP, BNP, HS TROP, CBC, PTT, PT #### [address] Hemoglobin (Bld) [Mass/Vol] 14.1 g/dL Normal 13.0-17.0 [facility] Comment on above: Performed By: #### C KMB, CK, BMP, BNP, HS TROP, CBC, PTT, PT #### [address] Lymphocytes (Bld) [#/Vol] 1.1 10*3/uL Normal 1.00-4.8 [facility] Comment on above: Performed By: #### C KMB, CK, BMP, BNP, HS TROP, CBC, PTT, PT #### [address] Lymphocytes/100 WBC (Bld) 19.1 % Normal . [facility] Comment on above: Performed By: #### C KMB, CK, BMP, BNP, HS TROP, CBC, PTT, PT #### [address] MCH (RBC) [Entitic mass] 29.0 pg Normal 27.5-35.2 [facility] Comment on above: Performed By: #### C KMB, CK, BMP, BNP, HS TROP, CBC, PTT, PT #### [facility] [address] MCV (RBC) [Entitic vol] 88.4 fL Normal 83.5-101 [facility] Comment on above: Performed By: #### C KMB, CK, BMP, BNP, HS TROP, CBC, PTT, PT #### [facility] [address] Mean Corpuscular HGB Conc 32.8 g/dL Normal 32.5-35.6 [facility] Comment on above: Performed By: #### C KMB, CK, BMP, BNP, HS TROP, CBC, PTT, PT #### [facility] [address] Monocytes (Bld) [#/Vol] 0.5 10*3/uL Normal 0.0-0.8 [facility] Comment on above: Performed By: #### C KMB, CK, BMP, BNP, HS TROP, CBC, PTT, PT #### [facility] [address] Monocytes/100 WBC (Bld) 9.5 % Normal . [facility] Comment on above: Performed By: #### C KMB, CK, BMP, BNP, HS TROP, CBC, PTT, PT #### [facility] [address] Neutrophils (Bld) [#/Vol] 3.7 10*3/uL Normal 1.8-7.7 [facility] Comment on above: Performed By: #### C KMB, CK, BMP, BNP, HS TROP, CBC, PTT, PT #### [facility] [address] [place] [address] [place] Neutrophils/100 WBC (Bld) 66.0 % Normal . [facility] Comment on above: Performed By: #### C KMB, CK, BMP, BNP, HS TROP, CBC, PTT, PT #### [facility] [address] [place] [address] [place] Nucleated RBC/100 WBC (Bld) [Ratio] 0.0 % Normal 0-0.5 [facility] Comment on above: Performed By: #### C KMB, CK, BMP, BNP, HS TROP, CBC, PTT, PT #### [facility] [address] Platelet mean volume (Bld) [Entitic vol] 8.4 fL Normal 6.6-10.1 [facility] Comment on above: Performed By: #### C KMB, CK, BMP, BNP, HS TROP, CBC, PTT, PT #### [facility] [address] Platelets (Bld) [#/Vol] 261 10*3/uL Normal 150-450 [facility] Comment on above: Performed By: #### C KMB, CK, BMP, BNP, HS TROP, CBC, PTT, PT #### [facility] [address] RBC (Bld) [#/Vol] 4.88 10*6/uL Normal 3.90-5.60 [facility] Comment on above: Performed By: #### C KMB, CK, BMP, BNP, HS TROP, CBC, PTT, PT #### [address] WBC (Bld) [#/Vol] 5.6 10*3/uL Normal 4.5-11.0 [facility] Comment on above: Performed By: #### C KMB, CK, BMP, BNP, HS TROP, CBC, PTT, PT #### [facility] [address] [place] [address] Creatine Kinaseon 01-27-2022 CK [Catalytic activity/Vol] 94 U/L Normal [facility] Comment on above: Performed By: #### C KMB, CK, BMP, BNP, HS TROP, CBC, PTT, PT #### [address] Creatine kinase [Enzymatic a ctivity/volume] in Serum or PlasmaOrdered By: Siomara Batista on 01-27-2022 CK [Catalytic activity/Vol] 94 U/L [facility] Creatinine Kinase MBon 01-27 CK.MB [Mass/Vol] 2.3 ng/mL Normal 0.6-6.[address] [facility] Comment on above: Performed By: #### C OVID 19 [facility] #### [facility] [address] [place] [id number] [facility] CKMB Relative Index 2.4 % Normal 0.00-2.50 [facility] Comment on above: Performed By: #### C OVID 19 [facility] #### [facility] [address] Creatinine and Glomerular fi ltration rate.predicted panel (S/P/Bld)Ordered By: Siomara Batista on 01-27-2022 Creatinine [Mass/Vol] 1.19 mg/dL 0.64-1.27 [facility] ECG 12 lead ECGon 01-27-2022 ECG 12 lead ECG [facility] [place] [address] [place] [address] Electrocardiograph Report Signed Patient: Keanu Antonio MR#: [id number] : 1950 Acct:[id number] Age/Sex: 71 / M ADM Date: 01/27/22 Loc: Room: [address] [place] [address] Type: DIS INOo Attending Dr: Cesar Gar MD Ordering Provider: Siomara Batista APRN Date of Service: 01/27/22 ECG/ECG 12 lead ECG: Chest Pain Copies to: Test Reason : Blood Pressure : 180/079 mmHG Vent. Rate : 057 BPM Atrial Rate : 057 BPM P-R Int : 220 ms QRS Dur : 088 ms QT Int : 438 ms P-R-T Axes : 039 040 153 degrees QTc Int : 426 ms Sinus bradycardia with 1st degree AV block T wave abnormality, consider lateral ischemia Abnormal ECG When compared with ECG of 27-JAN-2022 15:24, (Unconfirmed) Nonspecific T wave abnormality, improved in Inferior leads Confirmed by ALEXUS SOLORZANO DO ([id number]) on 01/28/2022 2:04:33 AM Referred By: Electronically Signed By:ALEXUS SOLORZANO DO Transcribed By: MUS Signed By Alexus Solorzano DO 01/28 0204 [facility] ECG 12 lead ECG [facility] [place] [address] [place] [address] Electrocardiograph Report Signed Patient: Keanu Antonio MR#: [id number] : 1950 Acct:[id number] Age/Sex: 71 / M ADM Date: 01/27/22 Loc: Room: [address] [place] [address] Type: DIS INOo Attending Dr: Cesar Gar MD Ordering Provider: Siomara Batista APRN Date of Service: 01/27/22 ECG/ECG 12 lead ECG: CHEST PAIN Copies to: Test Reason : Blood Pressure : / mmHG Vent. Rate : 063 BPM Atrial Rate : 063 BPM P-R Int : 216 ms QRS Dur : 092 ms QT Int : 428 ms P-R-T Axes : 069 042 151 degrees QTc Int : 437 ms Sinus rhythm with 1st degree AV block T wave abnormality, consider lateral ischemia Abnormal ECG When compared with ECG of 12-JUL-2020 07:29, No significant change was found Confirmed by BRUNO MONZON MD ([id number]) on 01/27/2022 7:31:24 PM Referred By: Electronically Signed By:BRUNO MONZON MD Transcribed By: MUS Signed By Bruno Monzon MD 01/08 [facility] Eosinophils Auto (Bld) [#/Vo l]Ordered By: Siomara Batista on 01-27-2022 Eosinophils (Bld) [#/Vol] 0.3 10*3/uL 0.0-0.45 [facility] Eosinophils/100 WBC Auto (Bl d)Ordered By: Siomara Batista on 01-27-2022 Eosinophils/100 WBC (Bld) 4.6 % . [facility] Erythrocyte distribution wid th Auto (RBC) [Ratio]Ordered By: Siomara Batista on 01-27-2022 Erythrocyte distribution width (RBC) [Ratio] 14.4 % 12.0-14.8 [facility] Estimated glomerular filtrat ion rate (GFR) non- AmericanOrdered By: Siomara Batista on 01-27-2022 GFR/1.73 sq M.predicted among non-blacks MDRD (S/P/Bld) [Vol rate/Area] 60 mL/Min [facility] Glucose mean value [Mass/vol ume] in Blood Estimated from glycated hemoglobinOrdered By: Cesar Gar on 01-27-2022 Average glucose Estimated from glycated hemoglobin (Bld) [Mass/Vol] 114 mg/dL [facility] Hematocrit Auto (Bld) [Volum e fraction]Ordered By: Siomara Batista on 01-27-2022 Hematocrit (Bld) [Volume fraction] 43.1 % 38.8-50.0 [facility] Hemoglobin A1c percentageOrd ered By: Cesar Gar on 01-27-2022 HbA1c (Bld) [Mass fraction] 5.6 % 4.3-5.6 [facility] Comment on above: Increased risk for d iabetes: 5.7 - 6.4 diabetes: >6.4 glycemic control for adults with diabetes: <7.0 Laboratory - Chemistry and C hemistry - challengeOrdered By: Siomara Batista on 01-27-2022 Natriuretic peptide B (Bld) [Mass/Vol] 106.0 pg/mL 5-100 [facility] Laboratory - CoagulationOrde red By: Siomara Batista on 01-27-2022 PT Coag (PPP) [Time] 11.4 s 9.0-12.[address] [facility] Laboratory - Hematology and Cell countsOrdered By: Siomara Batista on 01-27-2022 Nucleated RBC/100 WBC (Bld) [Ratio] 0.0 % 0-0.5 [facility] Laboratory - Microbiology an d Antimicrobial susceptibilityOrdered By: Siomara Batista on 01-27-2022 SARS-CoV-2 (COVID-19) RNA EVELIA+probe Ql (Unsp spec) N/A [facility] Lymphocytes Auto (Bld) [#/Vo l]Ordered By: Siomara Batista on 01-27-2022 Lymphocytes (Bld) [#/Vol] 1.1 10*3/uL 1.00-4.8 [facility] Lymphocytes/100 WBC Auto (Bl d)Ordered By: Siomara Batista on 01-27-2022 Lymphocytes/100 WBC (Bld) 19.1 % . [facility] MCH Auto (RBC) [Entitic mass ]Ordered By: Siomara Batista on 01-27-2022 MCH (RBC) [Entitic mass] 29.0 pg 27.5-35.2 [facility] MCHC Auto (RBC) [Mass/Vol]Or dered By: Siomara Batista on 01-27-2022 MCHC (RBC) [Mass/Vol] 32.8 g/dL 32.5-35.6 [facility] MCV Auto (RBC) [Entitic vol] Ordered By: Siomara Batista on 01-27-2022 MCV (RBC) [Entitic vol] 88.4 fL 83.5-101 F [facility] Monocytes Auto (Bld) [#/Vol] Ordered By: Siomara Batista on 01-27-2022 Monocytes (Bld) [#/Vol] 0.5 10*3/uL 0.0-0.8 [facility] Monocytes/100 WBC Auto (Bld) Ordered By: Siomara Batista on 01-27-2022 Monocytes/100 WBC (Bld) 9.5 % . [facility] Neutrophils Auto (Bld) [#/Vo l]Ordered By: Siomara Batista on 01-27-2022 Neutrophils (Bld) [#/Vol] 3.7 10*3/uL 1.8-7.7 [facility] Neutrophils/100 WBC Auto (Bl d)Ordered By: Siomara Batista on 01-27-2022 Neutrophils/100 WBC (Bld) 66.0 % . [facility] No Panel InformationOrdered By: Siomara Batista on 01-27-2022 Estimated GFR () > 60 mL/Min [facility] Comment on above: GFR estimated refere nce range: According to KDOQI guidelines, <60 ml/min/1.73m2 is sufficient to diagnose a patient with chronic kidney disease. Pharmacy Creatinine Clearance (Chem 69.61 [facility] SARS Antigen (LFIA) [facility] Partial Thromboplastin Timeo n 01-27-2022 aPTT Coag (Bld) [Time] 29.4 s Normal 25.1-36.5 [facility] Comment on above: Result Comment: PERF ORMED BY: [facility] [address] [place] [address] PATHOLOGIST LANGUAGE INTERPRETER ELFEGO ISLAS M.D. Performed By: #### C KMB, CK, BMP, BNP, HS TROP, CBC, PTT, PT #### [facility] [address] Platelet mean volume Auto (B ld) [Entitic vol]Ordered By: Siomara Batista on 01-27-2022 Platelet mean volume (Bld) [Entitic vol] 8.4 fL 6.6-10.1 [facility] Platelet poor plasma interna tional normalized ratio (INR) by coagulation assay (relatOrdered By: Siomara Batista on 01-27-2022 INR Coag (PPP) [Relative time] 1.0 {INR} [facility] Comment on above: INR Therapeutic Rang e A) Pre- and Peroperative OAT started two weeks before surgery. NOT HIP SURGERY: 1.5 - 2.5 HIP SURGERY: 2 - 3 B) Primary and secondary prevention of venous THROMBOSIS: 2 - 3 C) Active venous thrombosis, pulmonary embolism and prevention of recurrent venous thrombosis: 2 - 3 D) Prevention of arterial thromboembolism including patients with mechanical heart valves: 3 - 4.5 Platelets Auto (Bld) [#/Vol] Ordered By: Siomara Batista on 01-27-2022 Platelets (Bld) [#/Vol] 261 10*3/uL 150-450 [facility] Prothrombin Time INRon 01-27 INR Coag (PPP) [Relative time] 1.0 {INR} Normal [facility] Comment on above: Result Comment: INR Therapeutic Range A) Pre- and Peroperative OAT started two weeks before surgery. NOT HIP SURGERY: 1.5 - 2.5 HIP SURGERY: 2 - 3 B) Primary and secondary prevention of venous THROMBOSIS: 2 - 3 C) Active venous thrombosis, pulmonary embolism and prevention of recurrent venous thrombosis: 2 - 3 D) Prevention of arterial thromboembolism including patients with mechanical heart valves: 3 - 4.5 Performed By: #### C KMB, CK, BMP, BNP, HS TROP, CBC, PTT, PT #### [facility] [address] [place] [id number] [facility] PT Coag (PPP) [Time] 11.4 s Normal 9.0-12.[address] [facility] Comment on above: Performed By: #### C KMB, CK, BMP, BNP, HS TROP, CBC, PTT, PT #### [facility] [address] [place] [id number] [facility] RBC Auto (Bld) [#/Vol]Ordere d By: Siomara Batista on 01-27-2022 RBC (Bld) [#/Vol] 4.88 10*6/uL 3.90-5.60 [facility] Serum or plasma calcium cydney urement (mass/volume)Ordered By: Siomara Batista on 01-27-2022 Calcium [Mass/Vol] 9.3 mg/dL 8.2-10.2 [facility] Serum or plasma chloride jorge surement (moles/volume)Ordered By: Siomara Batista on 01-27-2022 Chloride [Moles/Vol] 105 mmol/L 95-[address] [facility] Serum or plasma creatine kin ase MB (CKMB)/total creatine kinase (CK) ratio by calculaOrdered By: Siomara Batista on 01-27-2022 CK.MB Calc [Catalytic fraction] 2.4 % 0.00-2.50 [facility] Serum or plasma creatine kin ase MB measurement (mass/volume)Ordered By: Siomara Batista on 01-27-2022 CK.MB [Mass/Vol] 2.3 ng/mL 0.6-6.[address] [facility] Serum or plasma glucose cydney urement (mass/volume)Ordered By: Siomara Batista on 01-27-2022 Glucose [Mass/Vol] 174 mg/dL 70-100 [facility] Comment on above: ADA recommended refe rence range Random Glucose Reference Range is dependent on time and content of last meal. Glucose of more than 200 mg/dL in a nonstressed, ambulatory subject supports the diagnosis of Diabetes Mellitus. Serum or plasma potassium me asurement (moles/volume)Ordered By: Siomara Batista on 01-27-2022 Potassium [Moles/Vol] 3.4 mmol/L 3.5-5.1 [facility] Serum or plasma sodium measu rement (moles/volume)Ordered By: Siomara Batista on 01-27-2022 Sodium [Moles/Vol] 141 mmol/L 136-146 [facility] Serum or plasma total carbon dioxide measurement (moles/volume)Ordered By: Siomara Batista on 01-27-2022 CO2 [Moles/Vol] 26.6 mmol/L 22.0-30.[address] [facility] Serum or plasma urea nitroge n measurement (mass/volume)Ordered By: Siomara Batista on 01-27-2022 Urea nitrogen [Mass/Vol] 15 mg/dL - [facility] Skye Ag Negativeon 01-28-20 Skye Ag Negative Negative Normal Negative [facility] Comment on above: Result Comment: This is a duplicate Skye SARS Antigen (ADELA) result to be used for statistical tracking purpose only. PERFORMED BY: [place] [address] PATHOLOGIST LANGUAGE INTERPRETER ELFEGO ISLAS M.D. Performed By: #### C OVID 19 [facility] #### [facility] [address] [place] [address] [place] Troponin I High Sensitivityo n 01-27-2022 Troponin I High Sensitivity 29 pg/mL High 0-20 [facility] Comment on above: Result Comment: PERF ORMED BY: [place] [address] PATHOLOGIST LANGUAGE INTERPRETER ELFEGO ISLAS M.D. Performed By: #### H S TROP #### [facility] [address] [place] [address] [place] Troponin I High Sensitivity 27 pg/mL High 0-20 [facility] Comment on above: Result Comment: PERF ORMED BY: [place] [address] PATHOLOGIST LANGUAGE INTERPRETER ELFEGO ISLAS M.D. Performed By: #### H S TROP #### [facility] [address] [place] [address] Troponin I High Sensitivity 25 pg/mL High 0-20 [facility] Comment on above: Result Comment: PERF ORMED BY: [place] [address] PATHOLOGIST LANGUAGE INTERPRETER ELFEGO ISLAS M.D. Performed By: #### C OVID 19 [facility] #### [facility] [address] [place] [address] Troponin I.cardiac [Mass/vol ume] in Serum or Plasma by High sensitivity methodOrdered By: Cesar Gar on 01-27-2022 Troponin I.cardiac High sensitivity method [Mass/Vol] 31 pg/mL 0-20 [facility] Troponin I.cardiac [Mass/vol ume] in Serum or Plasma by High sensitivity methodOrdered By: Siomara Batista on 01-27-2022 Troponin I.cardiac High sensitivity method [Mass/Vol] 27 pg/mL 0-20 [facility] XR chest 2V*on 01-27-2022 XR chest 2V* [facility] [place] [address] [place] [address] XRay Report Signed Patient: Keanu Antonio MR#: [id number] : 1950 Acct:[id number] Age/Sex: 71 / M ADM Date: 01/27/22 Loc: ER Room: Type: [facility] ER Attending Dr: Copies to: Siomara Batista APRN Ordering Provider: Siomara Batista APRN Date of Service: 01/27/22 XR/XR chest 2V*: Chest Pain PA AND LATERAL CHEST: CLINICAL HISTORY: Sharp left chest pain with numbness in left shoulder today. COMPARISON: Chest 09/30/2019 FINDINGS: Heart is normal in size. Lungs are clear. No free air. Osseous structures demonstrate degenerative change. XR/XR chest 2V* IMPRESSION: NO ACUTE CARDIOPULMONARY ABNORMALITY. Impression dictated by: Tigre Jackson Jr., DFahadOFahad01/27/2022 3:53 PM Dictation Location: [place] [address] Transcribed By: [facility] 01/27/22 5117 Dictated By: Tigre Jackson Jr, DO 01/27/22 1553 Signed By: 01/27/22 1559 [facility] APTTon 05-22-2021 aPTT Coag (Bld) [Time] 30.3 s [facility] Comment on above: IV Heparin Therapy Range: 62.0-94.0 [facility] CBC Auto Differentialon 05-10 Absolute Eos # 0.30 [facility] Absolute Immature Granulocyte <0.03 [facility] Absolute Lymph # 1.04 Low [facility] alth Absolute [place] # 0.60 [facility] lt Basophils (Bld) [#/Vol] 0.03 10*3/uL [facility] Basophils/100 WBC (Bld) 1 % 0 - 2 % [facility] Differential Type NOT REPORTED [facility] Eosinophils/100 WBC (Bld) 6 % High 1 - 4 % [facility] Hematocrit (Bld) [Volume fraction] 43.0 % 40.7 - 50.3 % [facility] Hemoglobin.gastrointesti nal spec 1 Ql (Stl) 13.7 g/dL 13.0 - 17.0 g/dL [facility] Immature granulocytes/100 WBC (Bld) 0 % 0 [facility] Interpretation and review of laboratory results Abnormal [facility] Lymphocytes/100 WBC (Bld) 19 % Low 24 - 43 % [facility] MCH (RBC) [Entitic mass] 27.9 pg 25. 2 - 33.5 pg [facility] MCHC (RBC) [Mass/Vol] 31.9 g/dL 28.4 - 34.8 g/dL [facility] MCV (RBC) [Entitic vol] 87.6 fL 82.6 - 102.9 fL [facility] Monocytes/100 WBC (Bld) 11 % 3 - 12 % [facility] NRBC Automated 0.0 0.0 per 100 WBC [facility] Platelet distribution width (Bld) [Ratio] 15.0 % High 11.8 - 14.4 % [facility] Platelet Estimate NOT REPORTED [facility] Platelet mean volume (Bld) [Entitic vol] 9.3 fL 8.1 - 13.5 fL [facility] Platelets (Bld) [#/Vol] 282 10*3/uL [facility] RBC (Bld) [#/Vol] 4.91 10*6/uL 4.21 - 5.7 7 m/uL [facility] RBC (Bld) [#/Vol] NOT REPORTED [facility] Segmented neutrophils/100 WBC (Bld) 63 % 36 - 65 % [facility] [#/Vol] 5.4 10*3/uL [facility] WBC (Bld) [#/Vol] NOT REPORTED [facility] COVID-19, Rapidon 05-22-2021 Interpretation and review of laboratory results Abnormal [facility] SARS-CoV-2 (COVID-19) RNA EVELIA+probe Ql (Unsp spec) Detected Abnormal Not Detected [facility] Comment on above: Rapid NAAT: The specimen is POSITIVE for SARS-Cov-2, the novel coronavirus associated with COVID-19. This test has been authorized by the FDA under an Emergency Use Authorization (EUA) for use by authorized laboratories. The ID NOW COVID-19 assay is designed to detect the virus that causes COVID-19 in patients with signs and symptoms of infection who are suspected of COVID-19. An individual without symptoms of COVID-19 and who is not shedding SARS-CoV-2 virus would expect to have a negative (not detected) result in this assay. Fact sheet for Healthcare Providers: https://www.fda.gov/media/374810/download Fact sheet for Patients: https://www.fda.gov/media/606910/download Methodology: Isothermal Nucleic Acid Amplification Results reported to the appropriate Health Department Specimen Description .NASOPHARYNGEAL SWAB [facility] Comprehensive Metabolic Pane l w/ Reflex to MGon 05-22-2021 Albumin [Mass/Vol] 4.2 g/dL 3.5 - 5.2 g/dL [facility] Albumin/Globulin [Mass ratio] 1.3 {ratio} [facility] ALP (Bld) [Catalytic activity/Vol] 83 U/L 40 - 129 U/L [facility] ALT [Catalytic activity/Vol] 22 U/L 5 - 41 U/L [facility] Anion gap [Moles/Vol] 12 mmol/L 9 - 17 mmol/L [facility] AST [Catalytic activity/Vol] 20 U/L <40 [facility] Bilirubin [Mass/Vol] 0.39 mg/dL 0.3 - 1 .2 mg/dL [facility] Calcium [Mass/Vol] 9.5 mg/dL 8.6 - 10. 4 mg/dL [facility] Chloride [Moles/Vol] 104 mmol/L 98 - 10 7 mmol/L [facility] CO2 [Moles/Vol] 25 mmol/L 20 - 31 mmol/L [facility] Creatinine [Mass/Vol] 0.99 mg/dL 0.70 - 1.20 mg/dL [facility] Free PSA/Total PSA [Mass fraction] 7.5 g/dL 6.4 - 8.3 g/dL [facility] GFR >60 >60 mL/min [facility] GFR Non- >60 >60 mL/min [facility] Glucose [Mass/Vol] 114 mg/dL High 70 - 99 mg/dL [facility] Interpretation and review of laboratory results Abnormal [facility] Potassium [Moles/Vol] 3.6 mmol/L Low 3.7 - 5.3 mmol/L [facility] Sodium [Moles/Vol] 141 mmol/L 135 - 144 mmol/L [facility] Urea nitrogen (BldV) [Mass/Vol] 18 mg/dL 8 - 23 mg/dL [facility] Urea nitrogen/Creatinine (Bld) [Mass ratio] [address] [facility] EKG Rhythm Stripon [facility] Laboratory - Chemistry and C hemistry - challengeon 05-22-2021 GFR/1.73 sq M.predicted MDRD (S/P/Bld) [Vol rate/Area] [facility] Comment on above: Average GFR for 70 o r more years old: 75 mL/min/1.73sq m Chronic Kidney Disease: <60 mL/min/1.73sq m Kidney failure: <15 mL/min/1.73sq m eGFR calculated using average adult body mass. Additional eGFR calculator available at: http://www.Inkerwang.Knozen/multiple_crcl_2012.htm Stage 1: Some kidney damage normal GFR Stage 2: Mild kidney damage GFR 60-89 Stage 3: Moderate kidney damage GFR 30-59 Stage 4: Severe kidney damage GFR 15-29 Stage 5: Severe kidney damage GFR <15 ESRD - chronic treatment by dialysis or transplant Protime-INRon 11-13-2021 INR Coag (Bld) [Relative time] 1.1 {INR} [facility] Comment on above: Non-therapeutic Range: INR = 0.9-1.2 Therapeutic Range: Moderate Anticoagulant Intensity: INR = 2.0-3.0 High Anticoagulant Intensity: INR = 2.5-3.5 PT Coag (PPP) [Time] 13.7 s [facility] [employer] [facility] Troponinon 05-22-2021 Troponin Interp NOT REPORTED [facility] [employer] Troponin T NOT REPORTED <0.03 ng/mL [facility] Troponin, High Sensitivity 15 ng/L 0 - 22 ng/L [facility] Comment on above: High Sensitivity Troponin values cannot be compared with other Troponin methodologies. Patients with high levels of Biotin oral intake (i.e >5mg/day) may have falsely decreased Troponin levels. Samples collected within 8 hours of biotin intake may require additional information for diagnosis. [employer] Troponin Interp NOT REPORTED [facility] Troponin T NOT REPORTED <0.03 ng/mL [facility] Troponin, High Sensitivity 16 ng/L 0 - 22 ng/L [facility] Comment on above: High Sensitivity Troponin values cannot be compared with other Troponin methodologies. Patients with high levels of Biotin oral intake (i.e >5mg/day) may have falsely decreased Troponin levels. Samples collected within 8 hours of biotin intake may require additional information for diagnosis. [employer] XR CHEST PORTABLEon 05-22-20 21 No acute cardiopulmonary disease [facility] EXAMINATION: ONE XRAY VIEW OF THE CHEST 05/22/2021 1:19 pm COMPARISON: 02/14/2021 HISTORY: ORDERING SYSTEM PROVIDED HISTORY: pain TECHNOLOGIST PROVIDED HISTORY: pain FINDINGS: .The cardiac size is normal. No acute infiltrates or pleural effusions are seen. Pulmonary vascularity appears normal. There is mild ectasia of the thoracic aorta. There are degenerative changes in the spine . No acute bony abnormalities. The hilar structures are normal. [facility] Pj Dumont MD - 05/22/2021 EXAMINATION: ONE XRAY VIEW OF THE CHEST 05/22/2021 1:19 pm COMPARISON: 02/14/2021 HISTORY: ORDERING SYSTEM PROVIDED HISTORY: pain TECHNOLOGIST PROVIDED HISTORY: pain FINDINGS: .The cardiac size is normal. No acute infiltrates or pleural effusions are seen. Pulmonary vascularity appears normal. There is mild ectasia of the thoracic aorta. There are degenerative changes in the spine . No acute bony abnormalities. The hilar structures are normal. IMPRESSION: No acute cardiopulmonary disease [employer] Phone: Radiology Study observation (narrative) [employer] Phone: XR CHEST PORTABLEOrdered By: Pj Dumont on 05-22-2021 [employer] Phone: Basic Metabolic Panel w/ Ref pascual to MGOrdered By: Jermaine Shaw on 02-14-2021 Anion gap [Moles/Vol] 10 mmol/L 9 - 17 mmol/L [employer] Phone: Calcium [Mass/Vol] 9.2 mg/dL 8.6 - 10. 4 mg/dL [employer] Phone: Chloride [Moles/Vol] 105 mmol/L 98 - 10 7 mmol/L [employer] Phone: CO2 [Moles/Vol] 26 mmol/L 20 - 31 mmol/L [employer] Phone: Creatinine [Mass/Vol] 1.08 mg/dL 0.70 - 1.20 mg/dL [employer] Phone: GFR >60 >60 mL/min [employer] ([employer]IR[employer]) Phone: GFR Non- >60 >60 mL/min [employer] Phone: GFR/1.73 sq M.predicted MDRD (S/P/Bld) [Vol rate/Area] [employer] Phone: Comment on above: Average GFR for 60-6 9 years old: 85 mL/min/1.73sq m Chronic Kidney Disease: <60 mL/min/1.73sq m Kidney failure: <15 mL/min/1.73sq m eGFR calculated using average adult body mass. Additional eGFR calculator available at: http://www.Inkerwang.Knozen/multiple_crcl_2012.htm GFR/1.73 sq M.predicted MDRD (S/P/Bld) [Vol rate/Area] NOT REPORTED [facility] [place] Phone: Glucose [Mass/Vol] 145 mg/dL High 70 - 99 mg/dL [facility] [place] Phone: Interpretation and review of laboratory results Abnormal [facility] [place] Phone: Potassium [Moles/Vol] 3.5 mmol/L Low 3.7 - 5.3 mmol/L [facility] [place] Phone: Sodium [Moles/Vol] 141 mmol/L 135 - 144 mmol/L [facility] [place] Phone: Urea nitrogen (BldV) [Mass/Vol] 21 mg/dL 8 - 23 mg/dL [facility] [place] Phone: Urea nitrogen/Creatinine (Bld) [Mass ratio] 19 [facility] Work Phone: [facility] [place] Phone: CBC Auto DifferentialOrdered By: Jermaine Shaw on 02-14-2021 [employer] Eos # 0.30 [facility] Work Phone: Absolute Immature Granulocyte NOT REPORTED [facility] Work Phone: Absolute Lymph # 1.20 [facility] Work Phone: Absolute [place] # 0.70 [facility] Work Phone: Basophils (Bld) [#/Vol] 0.00 10*3/uL [facility] Work Phone: Basophils/100 WBC (Bld) 0 % 0 - 2 % M [facility] Work Phone: Differential Type YES [facility] Work Phone: Eosinophils/100 WBC (Bld) 4 % 0 - 5 % [facility] Work Phone: Hematocrit (Bld) [Volume fraction] 44.0 % 41 - 53 % [employer] Phone: Hemoglobin.gastrointesti nal spec 1 Ql (Stl) 15.1 g/dL 13.5 - 17.5 g/dL [employer] Phone: Immature Granulocytes NOT REPORTED 0 % M [employer] Phone: Lymphocytes/100 WBC (Bld) 17 % 13 - 44 % [employer] Phone: MCH (RBC) [Entitic mass] 29.8 pg 26 - 34 pg [employer] Phone: MCHC (RBC) [Mass/Vol] 34.3 g/dL 31 - 37 g/dL M [employer] Phone: MCV (RBC) [Entitic vol] 86.7 fL 80 - 100 fL [employer] Phone: Monocytes/100 WBC (Bld) 9 % 5 - 9 % [employer] Work Phone: NRBC Automated NOT REPORTED per 100 WBC [facility] Work Phone: Platelet distribution width (Bld) [Ratio] 13.9 % 12.1 - 15.2 % [employer] Phone: Platelet Estimate NOT REPORTED [employer] Phone: Platelet mean volume (Bld) [Entitic vol] NOT REPORTED 6.0 - 12.0 fL [employer] Phone: Platelets (Bld) [#/Vol] 303 10*3/uL [employer] Phone: RBC (Bld) [#/Vol] 5.08 10*6/uL 4.5 - 5.9 m/uL [employer] Phone: RBC (Bld) [#/Vol] NOT REPORTED [employer] Phone: Segmented neutrophils/100 WBC (Bld) 70 % 39 - 75 % [employer] Work Phone: Segs Absolute 5.20 [facility] Work Phone: WBC (Bld) [#/Vol] 7.5 10*3/uL [employer] Work Phone: WBC (Bld) [#/Vol] NOT REPORTED [employer] Phone: [employer] Work Phone: MagnesiumOrdered By: Albert Shaw on 02-14-2021 Magnesium [Mass/Vol] 2.2 mg/dL 1.6 - 2 .6 mg/dL [employer] Phone: [employer] Phone: TroponinOrdered By: Moses Shaw on 02-14-2021 Interpretation and review of laboratory results Abnormal [employer] Phone: Troponin Interp NOT REPORTED [employer] Work Phone: Troponin T NOT REPORTED <0.03 ng/mL [facility] Work Phone: Troponin, High Sensitivity 23 ng/L High 0 - 22 ng/L [employer] Phone: Comment on above: High Sensitivity Troponin values cannot be compared with other Troponin methodologies. Patients with high levels of Biotin oral intake (i.e >5mg/day) may have falsely decreased Troponin levels. Samples collected within 8 hours of biotin intake may require additional information for diagnosis. [employer] Phone: Interpretation and review of laboratory results Abnormal [employer] Phone: Troponin Interp NOT REPORTED [employer] [facility] Work Phone: Troponin T NOT REPORTED <0.03 ng/mL [employer] [facility] Work Phone: Troponin, High Sensitivity 25 ng/L High 0 - 22 ng/L [employer] Phone: Comment on above: High Sensitivity Troponin values cannot be compared with other Troponin methodologies. Patients with high levels of Biotin oral intake (i.e >5mg/day) may have falsely decreased Troponin levels. Samples collected within 8 hours of biotin intake may require additional information for diagnosis. [employer] Phone: XR CHEST PORTABLEOrdered By: Jermaine Shaw on 02-14-2021 FINDINGS/IMPRESSION : Osseous structure are intact. No pneumothorax. Stable cardiomegaly. No consolidation, vascular congestion, or pleural effusion. No acute pulmonary process. [employer] Phone: EXAMINATION: XR CHEST PORTABLE, 02/14/2021 6:55 PM EDT HISTORY: Reason for exam:->CP COMPARISON: 07/11/2020 TECHNIQUE: Chest x-ray: One view. [employer] Phone: Ady, [facility] Incoming Radiant Results From [employer]go[employer] - 02/14/2021 7:20 PM EDT EXAMINATION: XR CHEST PORTABLE, 02/14/2021 6:55 PM EDT HISTORY: Reason for exam:->CP COMPARISON: 07/11/2020 TECHNIQUE: Chest x-ray: One view. IMPRESSION: FINDINGS/IMPRESSION : Osseous structure are intact. No pneumothorax. Stable cardiomegaly. No consolidation, vascular congestion, or pleural effusion. No acute pulmonary process. [employer] Phone: [employer] Phone: Basic Metabolic Panel w/ Ref pascual to MGon 07-11-2020 Anion gap [Moles/Vol] 7 mmol/L Low 9 - 17 mmol/L [place] Bun/Cre Ratio 11 [place] Calcium [Mass/Vol] 8.7 mg/dL 8.6 - 10. 4 mg/dL [place] Chloride [Moles/Vol] 108 mmol/L High 98 - 10 7 mmol/L [place] CO2 [Moles/Vol] 27 mmol/L 20 - 31 mmol/L [place] Creatinine [Mass/Vol] 1.16 mg/dL 0.7 - 1.2 mg/dL [place] GFR >60 >60 mL/min [place] GFR Non- >60 >60 mL/min [place] GFR/1.73 sq M predicted among non-blacks MDRD (S/P/Bld) [Vol rate/Area] NOT REPORTED [place] GFR/1.73 sq M predicted among non-blacks MDRD (S/P/Bld) [Vol rate/Area] [place] Comment on above: Average GFR for 60-6 9 years old: 85 mL/min/1.73sq m Chronic Kidney Disease: <60 mL/min/1.73sq m Kidney failure: <15 mL/min/1.73sq m eGFR calculated using average adult body mass. Additional eGFR calculator available at: http://www.Sendmail/multiple_crcl_2012.htm Glucose [Mass/Vol] 124 mg/dL High 70 - 99 mg/dL [place] Potassium [Moles/Vol] 3.8 mmol/L 3.7 - 5.3 mmol/L [place] Sodium [Moles/Vol] 142 mmol/L 135 - 144 mmol/L [place] Urea nitrogen [Mass/Vol] 13 mg/dL 8 - 23 mg/d L [place] Brain Natriuretic Peptideon 07-11-2020 Natriuretic peptide B (Bld) [Mass/Vol] 1443 pg/mL High <300 [place] Comment on above: Pro-BNP results paulina ot be compared to BNP results. Natriuretic peptide B (Bld) [Mass/Vol] Pro-BNP Reference Range: [place] Comment on above: Rule Out: <300 [place] Zone: Age <50 300-450 Age 50-75 300-900 Age >75 300-1800 Usually represents mild to moderate HF but other cardiopulmonary causes cannot be ruled out. Rule In: Age <50 >450 Age 50-75 >900 Age >75 >1800 CBC Auto Differentialon Basophils (Bld) [#/Vol] 0.00 10*3/uL [place] Basophils/100 WBC (Bld) 0 % 0 - 2 % M [place] Differential Type YES [place] Eosinophils (Bld) [#/Vol] 0.30 10*3/uL [place] Eosinophils/100 WBC (Bld) 4 % 0 - 5 % [place] Erythrocyte distribution width (RBC) [Ratio] 14.6 % 12.1 - 15.2 % [place] Hematocrit (Bld) [Volume fraction] 41.5 % 41 - 53 % [place] Hemoglobin (Bld) [Mass/Vol] 13.8 g/dL 13.5 - 17.5 g/dL [place] Lymphocytes (Bld) [#/Vol] 1.20 10*3/uL [place] Lymphocytes/100 WBC (Bld) 17 % 13 - 44 % [place] MCH (RBC) [Entitic mass] 28.8 pg 26 - 34 pg [place] MCHC (RBC) [Mass/Vol] 33.3 g/dL 31 - 37 g/dL [place] MCV (RBC) [Entitic vol] 86.5 fL 80 - 100 fL [place] Monocytes (Bld) [#/Vol] 0.60 10*3/uL [place] Monocytes/100 WBC (Bld) 9 % 5 - 9 % [place] Platelet mean volume (Bld) [Entitic vol] NOT REPORTED 6 - 12 fL [place] Platelets (Bld) [#/Vol] NOT REPORTED [place] Platelets (Bld) [#/Vol] 286 10*3/uL [place] RBC (Bld) [#/Vol] 4.80 10*6/uL 4.5 - 5.9 m/uL [place] RBC morphology finding Nom (Bld) NOT REPORTED [place] Segmented neutrophils/100 WBC (Bld) 70 % 39 - 75 % [place] Segs Absolute 4.90 [place] WBC (Bld) [#/Vol] 7.0 10*3/uL [place] WBC (Bld) [#/Vol] NOT REPORTED per 100 WBC [place] WBC Morphology NOT REPORTED [place] COVID-19on 07-11-2020 SARS-CoV-2, Rapid Not Detected Not Detected [place] Comment on above: Rapid NAAT: The specimen is NEGATIVE for SARS-CoV-2, the novel coronavirus associated with COVID-19. The ID NOW COVID-19 assay is designed to detect the virus that causes COVID-19 in patients with signs and symptoms of infection who are suspected of COVID-19. An individual without symptoms of COVID-19 and who is not shedding SARS-CoV-2 virus would expect to have a negative (not detected) result in this assay. Negative results should be treated as presumptive and, if inconsistent with clinical signs and symptoms or necessary for patient management, should be tested with an alternative molecular assay. Negative results do not preclude SARS-CoV-2 infection and should not be used as the sole basis for patient management decisions. Fact sheet for Healthcare Providers: https://www.fda.gov/media/092481/download Fact sheet for Patients: https://www.fda.gov/media/794037/download Methodology: Isothermal Nucleic Acid Amplification Source .THROAT [place] Otheron 07-11-2020 SARS-CoV-2 [place] Interpretation and review of laboratory results Abnormal [place] Immature granulocytes (Bld) [#/Vol] NOT REPORTED [place] Troponinon 07-11-2020 Troponin I.cardiac [Mass/Vol] [place] Comment on above: Reference Range: <0.03 Within reference range. 0.03-0.09 Possible myocardial damage. Repeat at appropriate intervals to rule out chronic elevation. >= 0.10 Indicative of myocardial damage. Patients with high levels of Biotin oral intake (i.e >5mg/day) may have falsely decreased Troponin T levels. Samples collected within 8 hours of biotin intake may require additional information for diagnosis. Troponin T.cardiac [Mass/Vol] ug/L <0.03 ng/mL [place] Comment on above: Troponin T results c annot be compared to Troponin-I results. Troponin, High Sensitivity NOT REPORTED 0 - 22 ng/L [place] XR CHEST PORTABLEon 07-11-19 PROCEDURE: XR CHEST PORTABLE REASON FOR STUDY/CLINICAL HISTORY: Chest pain. COMPARISON STUDY: 08/29/2019. TECHNIQUE: Single view(s) of the chest presented for interpretation. FINDINGS: Cardiomegaly is noted. When compared to the previous exam there has been interval development of increasing infiltrate and atelectasis at the left lung base and persistent bronchial thickening and atelectasis or infiltrate is noted on the right slightly improved from the prior. Small left effusion is not excluded. Mild edema centrally. Atherosclerotic aortic calcifications are noted. Large body habitus. No pneumothorax. No acute appearing focal significant bony abnormality. Retrocardiac infiltrate or early subtle consolidation not excluded. [place] Ady, [facility] Incoming Radiant Results From [employer]go/[employer] - 07/11/2020 3:53 AM EST PROCEDURE: XR CHEST PORTABLE REASON FOR STUDY/CLINICAL HISTORY: Chest pain. COMPARISON STUDY: 08/29/2019. TECHNIQUE: Single view(s) of the chest presented for interpretation. FINDINGS: Cardiomegaly is noted. When compared to the previous exam there has been interval development of increasing infiltrate and atelectasis at the left lung base and persistent bronchial thickening and atelectasis or infiltrate is noted on the right slightly improved from the prior. Small left effusion is not excluded. Mild edema centrally. Atherosclerotic aortic calcifications are noted. Large body habitus. No pneumothorax. No acute appearing focal significant bony abnormality. Retrocardiac infiltrate or early subtle consolidation not excluded. IMPRESSION: Bibasilar infiltrate or atelectasis worse on the left than on the right. Bronchial thickening and mild edema centrally. A small left effusion is not excluded. No large pleural effusion is seen. [place] Bibasilar infiltrate or atelectasis worse on the left than on the right. Bronchial thickening and mild edema centrally. A small left effusion is not excluded. No large pleural effusion is seen. [place] SARS-COV-2,NAAon 02-25-2020 SARS-COV-2, EVELIA Not Detected [facility] Comment on above: Result Comment: Refe rence range: Not Detected (NOTE) This test was developed and its performance characteristics determined by [employer]. This test has not been FDA cleared or approved. This test has been authorized by FDA under an Emergency Use Authorization (EUA). This test is only authorized for the duration of time the declaration that circumstances exist justifying the authorization of the emergency use of in vitro diagnostic tests for detection of SARS-CoV-2 virus and/or diagnosis of COVID-19 infection under section 564(b)(1) of the Act, 21 U.S.C. 360bbb-3(b)(1), unless the authorization is terminated or revoked sooner. When diagnostic testing is negative, the possibility of a false negative result should be considered in the context of a patient's recent exposures and the presence of clinical signs and symptoms consistent with COVID-19. An individual without symptoms of COVID-19 and who is not shedding SARS-CoV-2 virus would expect to have a negative (not detected) result in this assay. SARS-COV-2,NAAon 02-11-2020 SARS-COV-2, EVELIA Not Detected Normal [facility] Comment on above: Result Comment: Refe rence range: Not Detected (NOTE) This test was developed and its performance characteristics determined by [employer]. This test has not been FDA cleared or approved. This test has been authorized by FDA under an Emergency Use Authorization (EUA). This test is only authorized for the duration of time the declaration that circumstances exist justifying the authorization of the emergency use of in vitro diagnostic tests for detection of SARS-CoV-2 virus and/or diagnosis of COVID-19 infection under section 564(b)(1) of the Act, 21 U.S.C. 360bbb-3(b)(1), unless the authorization is terminated or revoked sooner. When diagnostic testing is negative, the possibility of a false negative result should be considered in the context of a patient's recent exposures and the presence of clinical signs and symptoms consistent with COVID-19. An individual without symptoms of COVID-19 and who is not shedding SARS-CoV-2 virus would expect to have a negative (not detected) result in this assay. Basic Metabolic Panelon 08-10 Anion gap [Moles/Vol] 13 mmol/L 9 - 17 mmol/L [employer] Work Phone: Bun/Cre Ratio 18 [facility] Work Phone: Calcium [Mass/Vol] 9.3 mg/dL 8.6 - 10. 4 mg/dL [employer] Phone: Chloride [Moles/Vol] 107 mmol/L 98 - 10 7 mmol/L [employer] Phone: CO2 [Moles/Vol] 22 mmol/L 20 - 31 mmol/L [employer] Phone: Creatinine [Mass/Vol] 1.18 mg/dL 0.7 - 1.2 mg/dL [employer] Phone: GFR >60 >60 mL/min [employer] ([employer]) Phone: GFR Non- >60 >60 mL/min [employer] Phone: GFR/1.73 sq M predicted among non-blacks MDRD (S/P/Bld) [Vol rate/Area] NOT REPORTED [employer] Phone: GFR/1.73 sq M predicted among non-blacks MDRD (S/P/Bld) [Vol rate/Area] [employer] Phone: Comment on above: Average GFR for 60-6 9 years old: 85 mL/min/1.73sq m Chronic Kidney Disease: <60 mL/min/1.73sq m Kidney failure: <15 mL/min/1.73sq m eGFR calculated using average adult body mass. Additional eGFR calculator available at: http://www.Inkerwang.Knozen/multiple_crcl_2012.htm Glucose [Mass/Vol] 172 mg/dL High 70 - 99 mg/dL [employer] Phone: Interpretation and review of laboratory results Abnormal [employer] Phone: Potassium [Moles/Vol] 4.0 mmol/L 3.7 - 5.3 mmol/L [employer] Phone: Sodium [Moles/Vol] 142 mmol/L 135 - 144 mmol/L [employer] Phone: Urea nitrogen [Mass/Vol] 21 mg/dL 8 - 23 mg/d L [employer] Phone: Basic Metabolic Panel w/ Ref pascual to MGon 08-27-2019 Anion gap [Moles/Vol] 15 mmol/L 9 - 17 mmol/L [employer] Phone: Bun/Cre Ratio 14 [facility] Work Phone: Calcium [Mass/Vol] 9.2 mg/dL 8.6 - 10. 4 mg/dL [employer] Phone: Chloride [Moles/Vol] 107 mmol/L 98 - 10 7 mmol/L [employer] Phone: CO2 [Moles/Vol] 21 mmol/L 20 - 31 mmol/L [employer] Phone: Creatinine [Mass/Vol] 1.11 mg/dL 0.7 - 1.2 mg/dL [employer] Phone: GFR >60 >60 mL/min [employer] ([employer]) Phone: GFR Non- >60 >60 mL/min [employer] Phone: GFR/1.73 sq M predicted among non-blacks MDRD (S/P/Bld) [Vol rate/Area] NOT REPORTED [employer] Phone: GFR/1.73 sq M predicted among non-blacks MDRD (S/P/Bld) [Vol rate/Area] [employer] Phone: Comment on above: Average GFR for 60-6 9 years old: 85 mL/min/1.73sq m Chronic Kidney Disease: <60 mL/min/1.73sq m Kidney failure: <15 mL/min/1.73sq m eGFR calculated using average adult body mass. Additional eGFR calculator available at: http://www.Sendmail/multiple_crcl_2012.htm Glucose [Mass/Vol] 160 mg/dL High 70 - 99 mg/dL [employer] Phone: Interpretation and review of laboratory results Abnormal [employer] Phone: Potassium [Moles/Vol] 3.6 mmol/L Low 3.7 - 5.3 mmol/L [employer] Phone: Sodium [Moles/Vol] 143 mmol/L 135 - 144 mmol/L [employer] Phone: Urea nitrogen [Mass/Vol] 16 mg/dL 8 - 23 mg/d L [employer] Phone: EKG 12 Leadon 08-27-2019 Atrial Rate 64 BPM [employer] Phone: P [place] 55 degrees [employer] Phone: P-R Interval 204 ms [employer] Phone: Q-T Interval 426 ms [employer] Phone: QRS Duration 92 ms [employer] Phone: QTc Calculation (Bazett) 439 ms [employer] Phone: R [place] 5 degrees [employer] Phone: T [place] 115 degrees [employer] Phone: Ventricular Rate 64 BPM [employer] Phone: Normal sinus rhythm T wave abnormality, consider lateral ischemia Poor R wave progression in the anterior leads. Anterior infarct, age undetermined, cannot be ruled out Abnormal ECG [employer] Phone: Ady, pn Incoming Ekg Results From [employer] - 08/27/2019 7:47 AM EST Normal sinus rhythm T wave abnormality, consider lateral ischemia Poor R wave progression in the anterior leads. Anterior infarct, age undetermined, cannot be ruled out Abnormal ECG [employer] Phone: Troponinon 08-27-2019 Troponin I.cardiac [Mass/Vol] [employer] Phone: Comment on above: Reference Range: <0.03 Within reference range. 0.03-0.09 Possible myocardial damage. Repeat at appropriate intervals to rule out chronic elevation. >= 0.10 Indicative of myocardial damage. Patients with high levels of Biotin oral intake (i.e >5mg/day) may have falsely decreased Troponin T levels. Samples collected within 8 hours of biotin intake may require additional information for diagnosis. Troponin T.cardiac [Mass/Vol] ug/L <0.03 ng/mL [employer] Phone: Comment on above: Troponin T results c annot be compared to Troponin-I results. Troponin, High Sensitivity NOT REPORTED 0 - 22 ng/L [employer] Phone: Troponin I.cardiac [Mass/Vol] [employer] Phone: Comment on above: Reference Range: <0.03 Within reference range. 0.03-0.09 Possible myocardial damage. Repeat at appropriate intervals to rule out chronic elevation. >= 0.10 Indicative of myocardial damage. Patients with high levels of Biotin oral intake (i.e >5mg/day) may have falsely decreased Troponin T levels. Samples collected within 8 hours of biotin intake may require additional information for diagnosis. Troponin T.cardiac [Mass/Vol] ug/L <0.03 ng/mL [employer] Phone: Comment on above: Troponin T results c annot be compared to Troponin-I results. Troponin, High Sensitivity NOT REPORTED 0 - 22 ng/L [employer] Phone: APTTon 08-26-2019 aPTT Coag (Bld) [Time] 25.9 s [place] [place] Phone: Comment on above: PTT Therapeutic Range: 61.7-88.4 Therapeutic range corresponds to plasma heparin levels of 0.3-0.7 U/mL. Brain Natriuretic Peptideon 08-26-2019 Interpretation and review of laboratory results Abnormal [employer] Phone: Natriuretic peptide B (Bld) [Mass/Vol] Pro-BNP Reference Range: [employer] Phone: Comment on above: Rule Out: <300 [place] Zone: Age <50 300-450 Age 50-75 300-900 Age >75 300-1800 Usually represents mild to moderate HF but other cardiopulmonary causes cannot be ruled out. Rule In: Age <50 >450 Age 50-75 >900 Age >75 >1800 Natriuretic peptide B (Bld) [Mass/Vol] 1650 pg/mL High <300 [employer] Phone: Comment on above: Pro-BNP results paulina ot be compared to BNP results. CBC Auto Differentialon 08-10 Basophils (Bld) [#/Vol] 0.00 10*3/uL [employer] Phone: Basophils/100 WBC (Bld) 1 % 0 - 2 % [employer] Phone: Differential Type YES [facility] Work Phone: Eosinophils (Bld) [#/Vol] 0.40 10*3/uL [employer] Phone: Eosinophils/100 WBC (Bld) 5 % 0 - 5 % [employer] Phone: Erythrocyte distribution width (RBC) [Ratio] 14.2 % 12.1 - 15.2 % [employer] Phone: Hematocrit (Bld) [Volume fraction] 41.3 % 41 - 53 % [employer] Phone: Hemoglobin (Bld) [Mass/Vol] 14.0 g/dL 13.5 - 17.5 g/dL [employer] Phone: Lymphocytes (Bld) [#/Vol] 1.10 10*3/uL [employer] Phone: Lymphocytes/100 WBC (Bld) 13 % 13 - 44 % [employer] Phone: MCH (RBC) [Entitic mass] 29.2 pg 26 - 34 pg [employer] Phone: MCHC (RBC) [Mass/Vol] 33.9 g/dL 31 - 37 g/dL [employer] Work Phone: MCV (RBC) [Entitic vol] 86.1 fL 80 - 100 fL [employer] Work Phone: Monocytes (Bld) [#/Vol] 0.70 10*3/uL [employer] Work Phone: Monocytes/100 WBC (Bld) 9 % 5 - 9 % [employer] Work Phone: Platelet mean volume (Bld) [Entitic vol] NOT REPORTED 6 - 12 fL [employer] Work Phone: Platelets (Bld) [#/Vol] NOT REPORTED [employer] Phone: Platelets (Bld) [#/Vol] 273 10*3/uL [employer] Work Phone: RBC (Bld) [#/Vol] 4.80 10*6/uL 4.5 - 5.9 m/uL [employer] Work Phone: RBC morphology finding Nom (Bld) NOT REPORTED [employer] Phone: Segmented neutrophils/100 WBC (Bld) 72 % 39 - 75 % [employer] Work Phone: Segs Absolute 6.20 [facility] Work Phone: WBC (Bld) [#/Vol] 8.5 10*3/uL [employer] Work Phone: WBC (Bld) [#/Vol] NOT REPORTED per 100 WBC [employer] Work Phone: WBC Morphology NOT REPORTED [employer] [facility] Work Phone: Comprehensive Metabolic Pane l w/ Reflex to MGon 08-26-2019 Albumin [Mass/Vol] 3.8 g/dL 3.5 - 5.2 g/dL [employer] Work Phone: Albumin/Globulin [Mass ratio] NOT REPORTED [employer] Phone: ALP [Catalytic activity/Vol] 56 U/L 40 - 129 U/L [employer] Phone: ALT [Catalytic activity/Vol] 28 U/L 5 - 41 U/L [employer] Phone: Anion gap [Moles/Vol] 12 mmol/L 9 - 17 mmol/L [employer] Phone: AST [Catalytic activity/Vol] 21 U/L <40 [employer] Phone: Bilirubin Ql (U) 0.25 mg/dL Low 0.3 - 1.2 mg/dL [employer] Phone: Bun/Cre Ratio 14 [facility] Work Phone: Calcium [Mass/Vol] 9.0 mg/dL 8.6 - 10. 4 mg/dL [employer] Phone: Chloride [Moles/Vol] 106 mmol/L 98 - 10 7 mmol/L [employer] Phone: CO2 [Moles/Vol] 24 mmol/L 20 - 31 mmol/L [employer] Phone: Creatinine [Mass/Vol] 1.27 mg/dL High 0.7 - 1.2 mg/dL [employer] Phone: GFR >60 >60 mL/min [employer] ([employer]) Phone: GFR Non- 56 mL/min Low >60 [employer] Phone: GFR/1.73 sq M predicted among non-blacks MDRD (S/P/Bld) [Vol rate/Area] [employer] Phone: Comment on above: Average GFR for 60-6 9 years old: 85 mL/min/1.73sq m Chronic Kidney Disease: <60 mL/min/1.73sq m Kidney failure: <15 mL/min/1.73sq m eGFR calculated using average adult body mass. Additional eGFR calculator available at: http://www.Inkerwang.Knozen/multiple_crcl_2012.htm GFR/1.73 sq M predicted among non-blacks MDRD (S/P/Bld) [Vol rate/Area] NOT REPORTED [employer] Phone: Glucose [Mass/Vol] 123 mg/dL High 70 - 99 mg/dL [employer] Phone: Interpretation and review of laboratory results Abnormal [employer] Phone: Potassium [Moles/Vol] 3.6 mmol/L Low 3.7 - 5.3 mmol/L [employer] Phone: Protein [Mass/Vol] 7.0 g/dL 6.4 - 8.3 g/dL [employer] Phone: Sodium [Moles/Vol] 142 mmol/L 135 - 144 mmol/L [employer] Phone: Urea nitrogen [Mass/Vol] 18 mg/dL 8 - 23 mg/d L [employer] Phone: Otheron 08-26-2019 Direct Exam Negative [employer] Phone: Immature granulocytes (Bld) [#/Vol] NOT REPORTED [employer] Phone: Protime-INRon 08-26-2019 INR Coag (PPP) [Relative time] 1.0 {INR} [employer] Phone: Comment on above: * THERAPY INDICATIONS * REFERENCE RANGES Pts not on anti-coagulants 1.0 - 1.5 INR Low risk pts on anti-coagulants 2.0 - 3.0 INR High risk pts on anti-coagulants 2.5 - 3.5 INR Prevention of atrial thrombo-embolism 3.0 - 4.5 INR PT Coag (PPP) [Time] 9.6 s [employer] ([employer]) Phone: Rapid influenza A/B antigens on 08-26-2019 Special Requests NOT REPORTED [employer] Phone: Specimen Description .NASOPHARYNGEAL SWAB [employer] Phone: Troponinon 08-26-2019 Troponin I.cardiac [Mass/Vol] [employer] Phone: Comment on above: Reference Range: <0.03 Within reference range. 0.03-0.09 Possible myocardial damage. Repeat at appropriate intervals to rule out chronic elevation. >= 0.10 Indicative of myocardial damage. Patients with high levels of Biotin oral intake (i.e >5mg/day) may have falsely decreased Troponin T levels. Samples collected within 8 hours of biotin intake may require additional information for diagnosis. Troponin T.cardiac [Mass/Vol] ug/L <0.03 ng/mL [employer] Phone: Comment on above: Troponin T results c annot be compared to Troponin-I results. Troponin, High Sensitivity NOT REPORTED 0 - 22 ng/L [employer] Phone: XR CHEST PORTABLEon 08-26-19 20 Bilateral peribronchial thickening is seen, suggestive of bronchitic changes. However, early/developing infiltrates cannot be excluded. Please correlate clinically. No dense focal consolidation is seen at this time. [employer] Phone: EXAM: XR CHEST PORTABLE CLINICAL HISTORY: 69 years old Male presenting with shortness of breath. TECHNIQUE: 1 view chest x-ray. COMPARISON: None. FINDINGS: No pneumothorax, pleural effusion or focal airspace consolidation. Diffuse bilateral peribronchial thickening is seen, suggestive of bronchiectatic changes. Heart is normal in size. Bony thorax is unremarkable. [employer] Phone: Ady, pn Incoming Radiant Results From [employer]go/[employer] - 08/26/2019 11:30 PM EST EXAM: XR CHEST PORTABLE CLINICAL HISTORY: 69 years old Male presenting with shortness of breath. TECHNIQUE: 1 view chest x-ray. COMPARISON: None. FINDINGS: No pneumothorax, pleural effusion or focal airspace consolidation. Diffuse bilateral peribronchial thickening is seen, suggestive of bronchiectatic changes. Heart is normal in size. Bony thorax is unremarkable. IMPRESSION: Bilateral peribronchial thickening is seen, suggestive of bronchitic changes. However, early/developing infiltrates cannot be excluded. Please correlate clinically. No dense focal consolidation is seen at this time. [employer] Work Phone: CMPon 01-30-2018 Albumin 1.2 g/dL Normal 1.1-2.2 [facility] Comment on above: Performed By: #### 2 [id number], [id number], [id number] ####[facility] [address] [place] [address] Albumin 3.6 g/dL Normal 3.3-5.0 [facility] Comment on above: Performed By: #### 2 [id number], [id number], [id number] ####[facility] [address] [facility] [place] [address] Alkaline phosphatase (ALP) 45 Int._Unit/L Normal 21-98 [facility] Comment on above: Performed By: #### 2 [id number], [id number], [id number] ####[facility] [address] [facility] [place] [address] ALT Without P-5'-P enzyme act/vol 36 Int._Unit/L Normal 6-46 [facility] Comment on above: Performed By: #### 2 [id number], [id number], [id number] ####[facility] [address] [address] Anion gap 16 mmol/L Normal 6-16 [facility] Comment on above: Performed By: #### 2 318227, [id number], [id number] ####[facility] [address] [place] [address] Aspartate aminotransferase (AST) 31 Int._Unit/L Normal 5-43 [facility] Comment on above: Performed By: #### 2 975395, [id number], [id number] ####[facility] [address] [place] [address] Bilirubin (total) 0.4 mg/dL Normal 0.0-1.1 [facility] Comment on above: Performed By: #### 2 [id number], [id number], [id number] ####[facility] [address] [place] [address] BUN/Creatinine Ratio 18 No Units Normal 10-20 [facility] Comment on above: Performed By: #### 2 838389, [id number], [id number] ####[facility] [address] [place] [address] Calcium 8.5 mg/dL Low 8.9-11.1 [facility] Comment on above: Performed By: #### 2 885040, [id number], [id number] ####[facility] [address] [place] [address] Chloride 105 mmol/L Normal 101-111 [facility] Comment on above: Performed By: #### 2 267597, [id number], [id number] ####[facility] [address] [place] [id number] CO2 22 mmol/L Normal 21-31 [facility] Comment on above: Performed By: #### 2 049035, [id number], [id number] ####[facility] [address] [place] [address] Creatinine 1.0 mg/dL Normal 0.5-1.3 [facility] Comment on above: Performed By: #### 2 [id number], [id number], [id number] ####[facility] [address] [place] [address] Globulin 3.1 g/dL Normal 1.4-4.0 [facility] Comment on above: Performed By: #### 2 704264, [id number], [id number] ####[facility] [address] [place] [address] Glucose mass conc 104 mg/dL Normal 55-199 [facility] Comment on above: Result Comment: If t his glucose result represents a fasting glucose, interpretation should refer to the following reference range: 55-99 mg/dL Performed By: #### 2 959141, [id number], [id number] ####[facility] [address] [place] [address] Potassium molar conc 3.3 mmol/L Low 3.5-5.3 [facility] Comment on above: Performed By: #### 2 681757, [id number], [id number] ####[facility] [address] [place] [address] Protein 6.7 g/dL Normal 6.0-7.8 [facility] Comment on above: Performed By: #### 2 664253, [id number], [id number] ####[facility] [address] [place] [address] Sodium 140 mmol/L Normal 135-145 [facility] Comment on above: Performed By: #### 2 156757, [id number], [id number] ####[facility] [address] [place] [address] Urea nitrogen 18 mg/dL Normal 5-21 [facility] Comment on above: Performed By: #### 2 543619, [id number], [id number] ####[facility] [address] [place] [address] Troponinon 01-30-2018 Troponin I.cardiac mass conc 0.03 ng/mL Normal <=0.03 [facility] Comment on above: Result Comment: New Troponin Assay 11/21/13ROC [place] Cutoff value > or = 0.03 ng/mL in conjunction with clinical conditions of myocardial infarction.([email or web address]/guidelines) Performed By: #### 2 [id number] ####[facility] [address] [place] [address] Troponin I.cardiac mass conc 0.03 ng/mL Normal <=0.03 [facility] Comment on above: Result Comment: New Troponin Assay 11/21/13ROC UT Cutoff value > or = 0.03 ng/mL in conjunction with clinical conditions of myocardial infarction.([email or web address]/guidelines) Performed By: #### 2 [id number], [id number], [id number] ####[facility] [address] [place] [address] eGFRon 01-30-2018 eGFR (black) mL/min/{1.73_m2} Normal >=59 [facility] Comment on above: Order Comment: Order added by Discern Expert. Result Comment: eGFR is race adjusted. AA=. Performed By: #### 2 [id number], [id number], [id number] ####[facility] [address] [place] [address] eGFR (non-black) mL/min/{1.73_m2} Normal >=59 [facility] Comment on above: Order Comment: Order added by Discern Expert. Result Comment: Flour Broker karthik kidney disease could be indicated at eGFR's of less than 60 mL/min/1.73m2. Kidney failure is indicated at less than 15 mL/min/1.73m2. Performed By: #### 2 770239, [id number], [id number] ####[facility] [address] [place] [address] Progress Noteon 08-11-2017 HIM IP Note OR Systems Programmer Normal [facility] Vital Signs Date Time Vital Sign Value Performing Clinician Facility 05-08-2024 12:30-0400 Diastolic blood pressure 77 mm[Hg] Erwin Lincoln MD Work Phone: [facility] 05-08-2024 12:30-0400 Heart rate 54 /min Erwin Lincoln MD Work Phone: [facility] 05-08-2024 12:30-0400 Respiratory rate 21 /min Erwin Lincoln MD Work Phone: [facility] 05-08-2024 12:30-0400 SaO2% (BldA) [Mass fraction] 94 % Erwin Lincoln MD Work Phone: [facility] 05-08-2024 12:30-0400 Systolic blood pressure 174 mm[Hg] Erwin Lincoln MD Work Phone: [facility] 05-08-2024 11:57-0400 Body temperature 96.8 [degF] Erwin Lincoln MD Work Phone: [facility] [employer] 05-08-2024 09:50-0400 Body height 162.6 cm Erwin Lincoln MD Work Phone: [facility] [employer] 05-08-2024 09:50-0400 Body mass index (BMI) [Ratio] 41.8 kg/m2 Erwin Lincoln MD Work Phone: [facility] [employer] 05-08-2024 09:50-0400 Body weight 110.45 kg Erwin Lincoln MD Work Phone: [facility] [employer] 03-26-2024 11:31-0400 Diastolic blood pressure 80 mm[Hg] Dennis Mina DO Work Phone: [facility] [employer] 03-26-2024 11:31-0400 Heart rate 46 /min Dennis Mina DO Work Phone: [facility] [employer] 03-26-2024 11:31-0400 Respiratory rate 19 /min Dennis Mina DO Work Phone: [facility] [employer] 03-26-2024 11:31-0400 SaO2% (BldA) [Mass fraction] 94 % [facility] DO [facility] 03-26-2024 11:31-0400 Systolic blood pressure 144 mm[Hg] Dennis Mina DO [facility] 03-26-2024 10:13-0400 Body height 162.6 cm Dennis Mina DO Work Phone: [facility] [employer] 03-26-2024 10:13-0400 Body mass index (BMI) [Ratio] 41.54 kg/m2 Dennis Mina DO Work Phone: [facility] [employer] 03-26-2024 10:13-0400 Body temperature 98.49 [degF] Dennis Mina DO Work Phone: [facility] [employer] 03-26-2024 10:13-0400 Body weight 109.77 kg Dennis Mina DO Work Phone: [facility] 01-25-2024 13:21-0400 Body height 162.56 cm [facility] 01-25-2024 13:21-0400 Body mass index (BMI) [Ratio] 42.7 kg/m2 [facility] 01-25-2024 13:21-0400 Body weight 112.94 kg [facility] 01-25-2024 13:21-0400 Diastolic blood pressure 94 mm[Hg] [facility] 01-25-2024 13:21-0400 Heart rate 63 /min [facility] 01-25-2024 13:21-0400 SaO2% (BldA) [Mass fraction] 96 % [facility] 01-25-2024 13:21-0400 Systolic blood pressure 187 mm[Hg] [facility] 02-02-2023 18:08-0400 Diastolic blood pressure 92 mm[Hg] Ramsey Rodríguez MD Work Phone: [facility] 02-02-2023 18:08-0400 Heart rate 56 /min Ramsey Rodríguez MD Work Phone: [facility] 02-02-2023 18:08-0400 Respiratory rate 20 /min Ramsey Rodríguez MD Work Phone: [facility] 02-02-2023 18:08-0400 SaO2% (BldA) [Mass fraction] 96 % Ramsey Rodríguez MD Work Phone: [facility] 02-02-2023 18:08-0400 Systolic blood pressure 195 mm[Hg] Ramsey Rodríguez MD Work Phone: [facility] 02-02-2023 14:25-0400 Body temperature 97.9 [degF] Ramsey Rodríguez MD Work Phone: [facility] 01-28-2022 08:59-0400 Body temperature 97.8 [degF] CATRINA Larson Work Phone: [facility] 01-28-2022 08:59-0400 Diastolic blood pressure 76 mm[Hg] INCLUSION SPECIALIST Maylin Larson Work Phone: [facility] 01-28-2022 08:59-0400 Heart rate 62 /min INCLUSION SPECIALIST Maylin Larson Work Phone: [facility] 01-28-2022 08:59-0400 Respiratory rate 20 /min INCLUSION SPECIALIST Maylin Larson Work Phone: [facility] 01-28-2022 08:59-0400 SaO2% (BldA) [Mass fraction] 96 % INCLUSION SPECIALIST Maylin Larson Work Phone: [facility] 01-28-2022 08:59-0400 Systolic blood pressure 162 mm[Hg] INCLUSION SPECIALIST Maylin Larson Work Phone: [facility] 01-28-2022 04:18-0400 Body weight 124.2 kg INCLUSION SPECIALIST Maylin Larson Work Phone: [facility] 01-28-2022 04:00-0400 Inhaled oxygen concentration 21 % INCLUSION SPECIALIST Maylin Larson Work Phone: [facility] 01-27-2022 21:16-0400 Diastolic blood pressure 93 mm[Hg] INCLUSION SPECIALIST Maylin Larson Work Phone: [facility] 01-27-2022 21:16-0400 Heart rate 58 /min INCLUSION SPECIALIST Maylin Larson Work Phone: [facility] 01-27-2022 21:16-0400 Respiratory rate 22 /min INCLUSION SPECIALIST Maylin Larson Work Phone: [facility] 01-27-2022 21:16-0400 SaO2% (BldA) [Mass fraction] 98 % INCLUSION SPECIALIST Maylin Larson Work Phone: [facility] 01-27-2022 21:16-0400 Systolic blood pressure 203 mm[Hg] INCLUSION SPECIALIST Maylin Larson Work Phone: [facility] 01-27-2022 15:27-0400 Body height 162.56 cm INCLUSION SPECIALIST Maylin Larson Work Phone: [facility] 01-27-2022 15:27-0400 Body weight 124.2 kg INCLUSION SPECIALIST Maylin Larson Work Phone: [facility] 01-27-2022 15:26-0400 Body temperature 97.9 [degF] INCLUSION SPECIALIST Maylin Larson Work Phone: [facility] 01-25-2022 12:00-0400 Body height Maylin Larson Other [employer] Other 01-25-2022 12:00-0400 Body mass index (BMI) [Ratio] 43.08 kg/m2 Maylin Larson Other [employer] Other 01-25-2022 12:00-0400 Body temperature 97.7 [degF] Maylin Larson Other [employer] Other 01-25-2022 12:00-0400 Body weight 113.85 kg Maylin Larson Other [employer] Other 01-25-2022 12:00-0400 Diastolic blood pressure 100 mm[Hg] Maylin Larson Other [employer] Other 01-25-2022 12:00-0400 SaO2% (BldA) [Mass fraction] 98 % Maylin Larson Other [employer] Other 01-25-2022 12:00-0400 Systolic blood pressure 198 mm[Hg] Maylin Larson Other [employer] Other 05-22-2021 18:00-0500 Diastolic blood pressure 58 mm[Hg] Charlotte Coleman MD Work Phone: [employer] 05-22-2021 18:00-0500 Heart rate 66 /min Charlotte Coleman MD Work Phone: [employer] 05-22-2021 18:00-0500 Respiratory rate 19 /min Charlotte Coleman MD Work Phone: [employer] 05-22-2021 18:00-0500 SaO2% (BldA) [Mass fraction] 96 % Chalrotte Coleman MD Work Phone: [employer] 05-22-2021 18:00-0500 Systolic blood pressure 161 mm[Hg] Charlotte Coleman MD Work Phone: [employer] 05-22-2021 15:54-0500 Body temperature 98.1 [degF] Charlotte Coleman MD Work Phone: [employer] 02-14-2021 20:50-0400 Diastolic blood pressure 85 mm[Hg] Jermaine Shaw MD Work Phone: [employer] Work Phone: 02-14-2021 20:50-0400 Heart rate 67 /min Jermaine Shaw MD Work Phone: [employer] Work Phone: 02-14-2021 20:50-0400 Respiratory rate 19 /min Jermaine Shaw MD Work Phone: [employer] Work Phone: 02-14-2021 20:50-0400 SaO2% (BldA) [Mass fraction] 95 % Jermaine Shaw MD Work Phone: [employer] Work Phone: 02-14-2021 20:50-0400 Systolic blood pressure 158 mm[Hg] Jermaine Shaw MD Work Phone: [employer] Work Phone: 02-14-2021 18:35-0400 Body temperature 98.1 [degF] Jermaine Shaw MD Work Phone: [employer] Work Phone: 02-14-2021 18:33-0400 Body height 162.6 cm Jermaine Shaw MD Work Phone: [employer] Work Phone: 02-14-2021 18:33-0400 Body mass index (BMI) [Ratio] 44.63 kg/m2 Jermaine Shaw MD Work Phone: [employer] Work Phone: 02-14-2021 18:33-0400 Body weight 117.94 kg Jermaine Shaw MD Work Phone: [employer] Work Phone: 07-11-2020 08:02-0500 BP Diastolic 56 mm[Hg] [facility] [place] 07-11-2020 08:02-0500 BP Systolic 155 mm[Hg] [facility] [place] 07-11-2020 08:02-0500 Pulse (Heart Rate) 63 /min [facility] 07-11-2020 08:02-0500 Pulse Oximetry 92 % [facility] [place] 07-11-2020 06:03-0500 Respiratory Rate 23 /min [facility] [place] 07-11-2020 02:06-0500 BMI (Body Mass Index) 42.91 kg/m2 [facility] [place] 07-11-2020 02:06-0500 Body Temperature 98.71 [degF] [facility] [place] 07-11-2020 02:06-0500 Body weight 113.4 kg [facility] [place] 07-11-2020 02:06-0500 Height 162.6 cm [facility] [place] 08-29-2019 14:36-0500 BP Diastolic 100 mm[Hg] [facility] [place] [facility] [place] 08-29-2019 14:36-0500 BP Systolic 166 mm[Hg] [facility] Les [facility] [place] [facility] [place] 08-29-2019 14:36-0500 Pulse Oximetry 97 % [facility] Les [facility] [place] 08-29-2019 13:36-0500 Pulse (Heart Rate) 54 /min [facility] [place] [place] 08-29-2019 13:36-0500 Respiratory Rate 21 /min [facility] [place] [place] 08-29-2019 12:05-0500 BMI (Body Mass Index) 43.77 kg/m2 [facility] [place] 08-29-2019 12:05-0500 Body Temperature 98.2 [degF] [facility] [place] [place] 08-29-2019 12:05-0500 Body weight 115.67 kg [facility] [place] 08-29-2019 12:05-0500 Height 162.6 cm [facility] [place] 08-28-2019 08:00-0500 Body Temperature 98.29 [degF] [facility] Work Phone: 08-28-2019 08:00-0500 BP Diastolic 86 mm[Hg] [facility] Work Phone: 08-28-2019 08:00-0500 BP Systolic 155 mm[Hg] [facility] Work Phone: 08-28-2019 08:00-0500 Pulse (Heart Rate) 60 /min [facility] Work Phone: 08-28-2019 08:00-0500 Pulse Oximetry 95 % [facility] Work Phone: 08-28-2019 08:00-0500 Respiratory Rate 18 /min [facility] Work Phone: 08-28-2019 04:19-0500 BMI (Body Mass Index) 44.42 kg/m2 [facility] Work Phone: 08-28-2019 04:19-0500 Body weight 117.39 kg [facility] [employer] [facility] Work Phone: 08-27-2019 00:40-0500 Height 162.6 cm Azeem Awan [facility] Work Phone: Encounters Encounter Date Encounter Type Care Provider Facility Start: 10-16-2024 End: 10-16-2024 ambulatory AB [facility] Start: 10-01-2024 End: 10-01-2024 ambulatory [facility] Start: 10-01-2024 End: 10-01-2024 Subsequent hospital visit by physician Conner Brown ENERGY MANAGER - ENGINEERING PROGRAM ANALYST Work Phone: [facility] Comment on above: Prostate cancer scre ening; Primary hypertension; Urinary frequency; Urinary dribbling Start: 08-29-2024 End: 08-29-2024 [facility] Start: 08-29-2024 End: 08-29-2024 Subsequent hospital visit by physician Dariela Zhong [facility] Comment on above: Arrived Start: 08-27-2024 End: 08-27-2024 [facility] Start: 08-27-2024 End: 08-27-2024 Subsequent hospital visit by physician Dariela Zhong [facility] Comment on above: Arrived Start: 08-23-2024 End: 08-23-2024 [facility] Start: 08-23-2024 End: 08-23-2024 Subsequent hospital visit by physician Cara Wilkerson PT [facility] Comment on above: Arrived Start: 08-19-2024 End: 08-21-2024 [facility] Start: 08-19-2024 End: 08-21-2024 Subsequent hospital visit by physician Cara Wilkerson PT [facility] Comment on above: Arrived Chronic pain of righ t ankle Start: 05-08-2024 End: 05-08-2024 [facility] Dusty LINCOLN [facility] Start: 05-08-2024 End: 05-08-2024 Subsequent hospital visit by physician Erwin Lincoln MD Work Phone: [facility] Start: 03-26-2024 End: 03-26-2024 Emergency department patient visit Dennis Montano Elif SCHULZ Work Phone: [facility] Comment on above: Essential hypertensi on (Primary Dx); Near syncope Start: 02-27-2024 End: 02-27-2024 ambulatory CONNER BROWN [facility] Start: 02-12-2024 End: 02-12-2024 ambulatory [facility] Start: 02-06-2024 End: 02-06-[address] [facility] Start: 01-25-2024 End: 01-25-2024 ambulatory [facility] Work Phone: Start: 01-25-2024 End: 01-25-2024 Patient encounter procedure [facility] Work Phone: Start: 03-14-2023 End: 03-14-2023 Subsequent hospital visit by physician Conner Brown APRN - SUKHWINDER Work Phone: [facility] Comment on above: Urinary frequency; Lower abdominal pain Start: 02-22-2023 End: 02-22-2023 Subsequent hospital visit by physician Conner Brown APRN - SUKHWINDER Work Phone: [facility] Comment on above: Lower abdominal pain ; Abdominal cramps Start: 02-02-2023 End: 02-02-2023 Emergency department patient visit RAMSEY RODRÍGUEZ [facility] Start: 02-02-2023 End: 02-02-2023 Emergency department patient visit Ramsey Rodríguez MD Work Phone: [facility] Emergency Medicine Start: 01-26-2023 End: 01-26-2023 ambulatory NON STAFF Facility:[facility] Start: 11-11-2022 End: 11-13-2022 Subsequent hospital visit by physician Natacha Additional Xray At [facility] Radiology Comment on above: Lumbar radiculopathy Start: 11-11-2022 End: 11-13-2022 Subsequent hospital visit by physician Conner Brown APRN - SUKHWINDER Work Phone: [facility] Radiology Start: 10-31-2022 End: 10-31-[address] DOCTOR OLMEDO Facility:[facility]1 Start: 09-19-2022 End: 09-19-2022 Subsequent hospital visit by physician Conner Andrews CNP Work Phone: [facility] Comment on above: Acute pain of left t high; Enthesopathy; Ankylosing spondylitis lumbar region (HCC) Start: 09-12-2022 End: 09-14-2022 Subsequent hospital visit by physician [facility] Mri Scanner [facility] MRI Comment on above: Musculoskeletal pain of left thigh; Myalgia; Abnormal x-ray of femur Start: 09-06-2022 End: 09-08-2022 Subsequent hospital visit by physician [facility] Additional Xray At [facility] Laboratory Comment on above: Musculoskeletal pain of left thigh; Screening, anemia, deficiency, iron; Screening for diabetes mellitus; BMI 40.0-44.9, adult ([facility]); Vitamin D deficiency; Screening for thyroid disorder; Prediabetes ; Myalgia Musculoskeletal pain of left thigh; Myalgia Start: 08-29-2022 End: 08-30-2022 ambulatory [facility] Facility:[facility] Start: 08-10-2022 End: 08-11-2022 ambulatory AB [facility] Facility: Start: 08-02-2022 End: 08-04-2022 Subsequent hospital visit by physician [facility] Additional Xray At [facility] Radiology Comment on above: Acute pain of right knee; Primary osteoarthritis of right knee Start: 03-31-2022 End: 03-31-2022 Subsequent hospital visit by physician [facility] Covid19 Pat Screening Schedule [facility] PRE ADMIT Comment on above: URI, acute Start: 01-27-2022 End: 01-28-2022 ambulatory Cesar Cong Facility:[facility] Start: 01-27-2022 End: 01-28-2022 Evaluation and management of inpatient INCLUSION SPECIALIST Maylin Larson Work Phone: [facility] [place] [facility] Start: 01-25-2022 End: 01-25-2022 ambulatory Maylin Larson Other [employer] Other Start: 01-25-2022 Office outpatient vi sit 25 minutes Maylin Larson [facility] Start: 01-25-2022 End: 01-25-2022 Patient encounter procedure INCLUSION SPECIALIST Maylin Larson Work Phone: [facility] Start: 05-22-2021 End: 05-22-2021 Emergency department patient visit Charlotte Coleman MD Work Phone: [facility] ED Comment on above: Atypical chest pain (Primary Dx) Start: 02-14-2021 End: 02-14-2021 Emergency department patient visit Jermaine Shaw MD Work Phone: [facility] ED Comment on above: Strain of rhomboid tray hansoncle, initial encounter (Primary Dx); Acute pain of left shoulder; History of coronary artery stent placement; History of hypertension Start: 07-11-2020 End: 07-11-2020 Emergency department patient visit Shannon Fry Work Phone: [facility] ED Comment on above: ACS (acute coronary syndrome) (HCC) (Primary Dx); Hypertensive urgency Start: 08-29-2019 End: 08-29-2019 Emergency department patient visit Se Saldana Work Phone: [facility] ED Comment on above: Bronchopneumonia (Pr imary Dx); Shortness of breath Start: 08-26-2019 End: 08-28-2019 Evaluation and management of inpatient Azeem Munozshney Work Phone: [facility] 2[facility] MED SURG TELEMETRY Comment on above: COPD exacerbation (H CC) (Primary Dx); Hypertensive urgency Start: 06-12-2018 End: 06-13-2018 Patient encounter procedure DEFAULT PHYSICIAN Facility:[facility] Start: 01-30-2018 End: 01-31-2018 Patient encounter [place]~[id number] UNKNOWN [place] Facility:[facility] Procedures Date Procedure Procedure Detail Performing Clinician Start: 10-01-2024 Comprehensive metabolic panel Conner Brown ENERGY MANAGER - ENGINEERING PROGRAM ANALYST Work Phone: Start: 08-19-2024 Radex ankle complete minimum 3 views Conner Brown ENERGY MANAGER - ENGINEERING PROGRAM ANALYST Work Phone: Start: 05-08-2024 Colonoscopy Erwin Lincoln MD Work Phone: Start: 03-26-2024 Ecg routine ecg w/least 12 lds w/i&r Dennis Mina DO Work Phone: Start: 03-26-2024 Comprehensive metabolic panel Dennis Mina DO Work Phone: Start: 03-14-2023 Comprehensive metabolic panel Conner Brown ENERGY MANAGER - ENGINEERING PROGRAM ANALYST Work Phone: Start: 02-22-2023 Urinalysis microscopic only Conner Brown ENERGY MANAGER - ENGINEERING PROGRAM ANALYST Work Phone: Start: 02-22-2023 Urnls dip stick/tablet rgnt auto w/o microscopy Conner Brown ENERGY MANAGER - ENGINEERING PROGRAM ANALYST Work Phone: Start: 02-02-2023 Assay of troponin quantitative Ramsey Rodríguez MD Work Phone: Start: 02-02-2023 Radiologic exam chest single view Ramsey Rodríguez MD Work Phone: Start: 02-02-2023 Complete blood count with white cell differential, automated Ramsey Rodríguez MD Work Phone: Start: 02-02-2023 Comprehensive metabolic panel Ramsey Rodríguez MD Work Phone: Start: 02-02-2023 Ecg routine ecg w/least 12 lds trcg only w/o i&r Ramsey Rodríguez MD Work Phone: Start: 11-11-2022 Radex spine lumbosacral minimum 4 views Glenny Goetz MD Work Phone: Start: 09-19-2022 C-reactive protein Conner Brown ENERGY MANAGER - ENGINEERING PROGRAM ANALYST Work Phone: Start: 09-19-2022 Sedimentation rate rbc automated Conner Brown ENERGY MANAGER - ENGINEERING PROGRAM ANALYST Work Phone: Start: 09-12-2022 Mri lower extrem oth/thn jt w/o & w/contr matr Conner Brown ENERGY MANAGER - ENGINEERING PROGRAM ANALYST Work Phone: Start: 09-06-2022 Radiologic examination femur minimum 2 views Conner Brown ENERGY MANAGER - ENGINEERING PROGRAM ANALYST Work Phone: Start: 09-06-2022 Comprehensive metabolic panel Conner Brown ENERGY MANAGER - ENGINEERING PROGRAM ANALYST Work Phone: Start: 08-02-2022 Radiologic exam knee complete 4/more views Conner Brown ENERGY MANAGER - ENGINEERING PROGRAM ANALYST Work Phone: Start: 03-31-2022 COVID-19, RAPID Conner Brown ENERGY MANAGER - ENGINEERING PROGRAM ANALYST Work Phone: Start: 01-27-2022 Plain chest X-ray INCLUSION SPECIALIST Maylin Larson Work Phone: Start: 05-22-2021 Assay of troponin quantitative Charlotte Coleman MD Work Phone: Start: 05-22-2021 Radiologic exam chest single view Charlotte Coleman MD Work Phone: Start: 05-22-2021 COVID-19, RAPID Charlotte Coleman MD Work Phone: Start: 05-22-2021 Prothrombin time Charlotte Coleman MD Work Phone: Start: 05-22-2021 End: 05-22-2021 Ecg routine ecg w/least 12 lds w/i&r Charlotte Coleman MD Work Phone: Start: 02-14-2021 Assay of troponin quantitative Jermaine Shaw MD Work Phone: Start: 02-14-2021 Radiologic exam chest single view Jermaine Shaw MD Work Phone: Start: 02-14-2021 Assay of magnesium Jermaine Shaw MD Work Phone: Start: 02-14-2021 BASIC METABOLIC PANEL W/ REFLEX TO MG FOR LOW K Jermaine Shaw MD Work Phone: Start: 02-14-2021 Ecg routine ecg w/least 12 lds w/i&r Jermaine Shaw MD Work Phone: Start: 07-11-2020 End: 07-11-2020 Ecg routine ecg w/least 12 lds w/i&r Shannon Palafox Work Phone: Start: 07-11-2020 Assay of troponin quantitative Shannon Palafox Work Phone: Start: 07-11-2020 BASIC METABOLIC PANEL W/ REFLEX TO MG FOR LOW K Shannon Palafox Work Phone: Start: 07-11-2020 Blood count complete auto&auto difrntl wbc Shannon Palafox Work Phone: Start: 07-11-2020 COVID-19 Shannon Palafox Work Phone: Start: 07-11-2020 Natriuretic peptide Shannon Palafox Work Phone: Start: 07-11-2020 Radiologic exam chest single view Shannon Palafox Work Phone: Start: 07-11-2020 Ecg routine ecg w/least 12 lds w/i&r Shannon Palafox Work Phone: Start: 08-29-2019 Ecg routine ecg w/least 12 lds w/i&r Veselin Les Work Phone: Start: 08-28-2019 Basic metabolic panel calcium total Abran Henriquez Work Phone: Start: 08-27-2019 Assay of troponin quantitative Abran Sherarian Work Phone: Start: 08-27-2019 Assay of troponin quantitative Abran Henriquez Work Phone: Start: 08-27-2019 BASIC METABOLIC PANEL W/ REFLEX TO MG FOR LOW K Abran Sherarian Work Phone: Start: 08-27-2019 PULSE OXIMETRY SPOT CHECK Abran Guerrero n Work Phone: Start: 08-26-2019 Radiologic exam chest single view Azeem Emperatriz Work Phone: Start: 08-26-2019 Iaadiadoo influenza Azeemshadi Awan Work Phone: Start: 08-26-2019 Ecg routine ecg w/least 12 lds i&r only Azeem Emperatriz Work Phone: Start: 08-26-2019 EKG REPORT Hpf Scanning Start: 08-26-2019 Assay of troponin quantitative Azeem Awan Work Phone: Start: 08-26-2019 Blood count complete auto&auto difrntl wbc Azeem Awan Work Phone: Start: 08-26-2019 Natriuretic peptide Azeem Awan Work Phone: Start: 08-26-2019 Prothrombin time Azeem Awan Work Phone: Start: 08-26-2019 Thromboplastin time partial plasma/whole blood Azeem Awan Work Phone: Start: 08-26-2019 NEBULIZER TX INTERMITTENT Azeem ross Work Phone: Start: 08-10-2009 Colonoscopy [facility] Schedule History of placement of stent for coronary artery disease History of coronary artery stent placement Jermaine Shaw MD Work Phone: SARS Antigen (LFIA) INCLUSION SPECIALIST Maylin Larson Work Phone: Plan of Treatment Date Care Activity Detail Author Start: 05-08-2034 Screening for malign ant neoplasm of colon [facility] Start: 02-05-2029 Lipid panel Lipids [facility] Start: 08-13-2025 Depression Screen Depression Screen [facility] Start: 05-21-2025 End: 05-21-2025 Patient encounter procedure 05/21/2025 11:30 AM EST Office Visit [facility] UROLOGY [address] [place] [address] Drake Blackwood PA-C [address] [place] [address] 1 year [facility] Comment on above: 1 year [facility] Start: 03-26-2025 GFR test (Diabetes, CKD 3-4, OR last GFR 15-59) GFR test (Diabetes, CKD 3-4, OR last GFR 15-59) [facility] Start: 02-05-2025 Lipid panel Lipids ANA ROSA Stewart [facility] Start: 12-11-2024 End: 12-11-2024 Patient encounter procedure 12/11/2024 10:00 AM EDT Office Visit [facility] [address] [place] [facility] [place] [address] Conner Brown, ENERGY MANAGER - ENGINEERING PROGRAM ANALYST [address] [place] [address] 6 month f/u [facility] Comment on above: 6 month f/u Start: 12-01-2024 Depression Screen Depression Screen [facility] Start: 11-01-2024 End: 11-01-2024 Clinical Support 11/01/2024 11:00 AM EDT Clinical Support [facility] [address] [place] [facility] [place] [address] BP check [facility] Comment on above: BP check Start: 10-11-2024 End: 10-11-2024 Patient encounter procedure 10/11/2024 8:40 AM EDT Office Visit [facility] [address] [place] [facility] [place] [address] Conner Brown, ENERGY MANAGER - ENGINEERING PROGRAM ANALYST [address] [place] [address] Return in about 8 weeks (around 10/08/2024). [facility] Comment on above: Return in about 8 we eks (around 10/08/2024). Start: 08-29-2024 End: 08-29-2024 Patient encounter procedure 08/29/2024 11:15 AM EST Appointment [facility] Physical Therapy [address] [place] [address] Dariela Zhong *$ [employer] MCR 1 of 8 valid till 10/08/2024 40 Copay No limit Ankle Pain Right [facility] Physical Therapy Comment on above: *$ [employer] MCR 1 of 8 valid till 10/08/2024 40 Copay No limit Ankle Pain Right Start: 08-27-2024 End: 08-27-2024 Patient encounter procedure 08/27/2024 12:45 PM EST Appointment [facility] [address] [place] [address] Cara Wilkerson, PT *$ [employer] MCR 1 of 8 valid till 10/08/2024 40 Copay No limit Ankle Pain Right [facility] Comment on above: *$ [employer] MCR 1 of 8 valid till 10/08/2024 40 Copay No limit Ankle Pain Right Start: 08-23-2024 End: 08-23-2024 Patient encounter procedure [facility] Comment on above: *$ [employer] MCR 1 of 8 valid till 10/08/2024 40 Copay No limit Ankle Pain Right Start: 07-10-2024 Annual Wellness Visi t (Medicare Advantage) Annual Wellness Visit (Medicare Advantage) [facility] Start: 06-12-2024 End: 06-12-2024 Patient encounter procedure 06/12/2024 10:00 AM EST Office Visit [facility] [address] [place] [address] Conner Brown, ENERGY MANAGER - ENGINEERING PROGRAM ANALYST [address] [place] [address] Return in 6 months (on 06/06/2024). [facility] Comment on above: Return in 6 months ( on 06/06/2024). Start: 05-20-2024 End: 05-20-2024 Patient encounter procedure 05/20/2024 11:00 AM EST Office Visit [facility] UROLOGY [address] [place] [id number] Natalee Munoz, ENERGY MANAGER - ENGINEERING PROGRAM ANALYST [address] [place] [address] 1 year [facility] Comment on above: 1 [facility] Start: 05-08-2024 End: 05-08-2024 Colon ca scrn not hi rsk ind COLORECTAL CANCER SCREENING, NOT HIGH RISK Encounter for screening colonoscopy 05/08/2024 11:36 AM EDT [facility] Start: 05-08-2024 End: 05-08-2024 Admission to same day surgery center 05/08/2024 8:32 AM EDT - 05/08/2024 9:04 AM EDT Surgery [facility] [address] [place] [address] Erwin Lincoln MD [address] [place] [address] [facility] COLONOSCOPY [facility] Comment on above: COLONOSCOPY Start: 05-08-2024 End: 05-08-2024 Colon ca scrn not hi rsk ind COLORECTAL CANCER SCREENING, NOT HIGH RISK Encounter for screening colonoscopy 05/08/2024 8:32 AM EDT [facility] Start: 05-08-2024 Subsequent hospital visit by physician 05/08/2024 8:32 AM EDT Hospital Encounter [facility] [address] [place] [address] Erwin Lincoln MD [address] [facility] [place] [address] [facility] Start: 03-10-2024 COVID-19 Vaccine ( season) COVID-19 Vaccine ( season) [facility] [employer] [facility] Start: 03-10-2024 COVID-19 Vaccine ( season) COVID-19 Vaccine ( season) [facility] [employer] Start: 02-22-2024 GFR test (Diabetes, CKD 3-4, OR last GFR 15-59) GFR test (Diabetes, CKD 3-4, OR last GFR 15-59) [facility] [employer] Start: 02-08-2024 Influenza vaccination Flu vaccine (# 1) [facility] [employer] Start: 11-24-2023 Annual Wellness Visi t (AWV) Annual Wellness Visit (AWV) [facility] [employer] Start: 11-24-2023 Depression Screen [facility] Start: 08-14-2023 DTaP/Tdap/Td vaccine (2 - Td or Tdap) DTaP/Tdap/Td vaccine (2 - Td or Tdap) [facility] Start: 08-14-2023 DTaP/Tdap/Td vaccine (2 - Td) DTaP/Tdap/Td vaccine (2 - Td) [facility] Work Phone: Start: 08-14-2023 Tetanus vaccination [facility] Start: 08-03-2023 End: 08-03-2023 Patient encounter procedure 08/03/2023 Office Visit Primary Care Conner Brown, ENERGY MANAGER - ENGINEERING PROGRAM ANALYST [address] [place] [address] [facility] Start: 08-02-2023 Depression Screen Depression Screen [facility] Start: 05-25-2023 End: 05-25-2023 Patient encounter procedure 05/25/2023 Office Visit Primary Care Conner Brown, ENERGY MANAGER - ENGINEERING PROGRAM ANALYST [address] [place] [address] [facility] Start: 03-10-2023 Influenza vaccination INFLUENZA VACC INE (#1) [facility] Start: 02-07-2023 Influenza vaccination [facility] Start: 12-01-2022 Lipid panel Lipids [facility] Start: 10-06-2022 Depression Screen Depression Screen [facility] Start: 09-12-2022 End: 09-12-2022 Patient encounter procedure 09/12/2022 Appointment Radiology [facility] Start: 08-01-2022 Lipid panel Lipid screen [facility] th- [place], [place] Start: 08-01-2022 Lipid screen Lipid screen [facility] Work Phone: Start: 05-22-2022 Creatinine measurement Creatinine mo [facility] Start: 05-22-2022 Potassium monitoring Potassium monit [facility] Start: 05-20-2022 End: 05-20-2022 Patient encounter procedure 05/20/2022 Office Visit Primary Care Conner Brown, ENERGY MANAGER - ENGINEERING PROGRAM ANALYST [address] [place] [address] [facility] Start: 03-10-2022 Influenza vaccination Flu vaccine (# 1) [facility] Start: 02-14-2022 Creatinine measurement Creatinine mo [facility] Work Phone: Start: 02-14-2022 Potassium monitoring Potassium monit [facility] Work Phone: Start: 02-07-2022 Influenza vaccination Flu vaccine (# 1) [facility] Start: 01-28-2022 Blood chemistry [facility] Work Phone: Start: 01-28-2022 Lipid 1996 panel - Serum or Plasma [facility] Work Phone: Start: 01-28-2022 Magnesium measurement F [facility] Work Phone: Start: 01-28-2022 End: 01-28-2022 [facility] Work Phone: Start: 01-27-2022 [facility] Work Phone: Start: 01-27-2022 Hospital admission [facility] Work Phone: Start: 01-27-2022 Referral to tank wagon driver [facility] Work Phone: Start: 01-27-2022 [facility] Work Phone: Start: 07-11-2021 Creatinine measurement Creatinine mo [place], [place] Start: 07-11-2021 Potassium monitoring Potassium monit [place], [place] Start: 03-10-2021 Influenza vaccination Flu vaccine (# 1) [facility] Start: 08-28-2020 Creatinine monitoring Creatinine mon [place], [place] Start: 08-28-2020 Potassium monitoring Potassium monit [place], [place] Start: 08-26-2020 Creatinine monitoring Creatinine mon [facility] Work Phone: Start: 08-26-2020 Potassium monitoring Potassium monit [facility] Work Phone: Start: 08-01-2020 Diabetes screen Diabetes screen [employer] Start: 03-10-2020 Influenza vaccination Flu vaccine (# 1) [place], [place] Start: 08-27-2019 Annual Wellness Visi t (AWV) Annual Wellness Visit (AWV) [facility] Start: 08-10-2019 Colon cancer screen colonoscopy Colon cancer screen colonoscopy [employer] Phone: Start: 08-10-2019 Screening for malign ant neoplasm of colon [facility] Start: 03-10-2019 Influenza vaccination Flu vaccine (# 1) [employer] Phone: Start: 08-01-2018 Lipid panel [facility] screen [facility] Start: 08-01-2018 Lipid screen Lipid screen [facility] [place] Start: 01-09-2017 Pneumococcal 65+ yea rs Vaccine (1 of 1 - PPSV23) Pneumococcal 65+ years Vaccine (1 of 1 - PPSV23) [facility] Start: 2016 Abdominal aortic aneurysm screening [facility] [employer] Start: 2016 Pneumococcal 65+ yea rs Vaccine (1 of 1 - PPSV23) Pneumococcal 65+ years Vaccine (1 of 1 - PPSV23) [employer] Phone: Start: 09-04-[address] lung screening Low dose CT lung screening [employer] Phone: Start: 09-04-2014 Screening for malign ant neoplasm of lung Low dose CT lung screening [facility] Start: 01-09-2013 Pneumococcal 50+ yea rs Vaccine (2 of 2 - PCV) Pneumococcal 50+ years Vaccine (2 of 2 - PCV) [facility] [employer] Start: 01-09-2013 Pneumococcal 65+ yea rs Vaccine (2 - PCV) Pneumococcal 65+ years Vaccine (2 - PCV) [facility] [employer] Start: 01-09-2013 Pneumococcal 65+ yea rs Vaccine (2 of 2 - PCV) Pneumococcal 65+ years Vaccine (2 of 2 - PCV) [facility] Start: 2011 Hepatitis B vaccine (1 of 3 - Risk 3-dose series) Hepatitis B vaccine (1 of 3 - Risk 3-dose series) [facility] Start: 2011 Respiratory Syncytia l Virus (RSV) or age 60 yrs+ (1 - 1-dose 60+ series) Respiratory Syncytial Virus (RSV) or age 60 yrs+ (1 - 1-dose 60+ series) [facility] Start: 2011 Respiratory Syncytia l Virus (RSV) or age 60 yrs+ (1 - Risk 60-74 years 1-dose series) Respiratory Syncytial Virus (RSV) or age 60 yrs+ (1 - Risk 60-74 years 1-dose series) [facility] Start: 2001 Prostate specific antigen measurement PROSTATE CANCER SCREENING DISCUSSION [facility] Start: 2001 Screening for malign ant neoplasm of lung Low dose CT lung screening [facility] Start: 2001 Shingles Vaccine (1 of 2) Shingles Vaccine (1 of 2) [facility] Start: 2001 Zoster vaccine hzv l helena for subcutaneous use ZOSTER (SHINGLES) VACCINE (1 of 2) [facility] Start: 1996 Screening for malign ant neoplasm of colon [facility] Start: 1991 Lipid panel LIPID SCREENING [facility] Start: 1970 Hepatitis A vaccine (1 of 2 - Risk 2-dose series) Hepatitis A vaccine (1 of 2 - Risk 2-dose series) [facility] Start: 1969 Hepatitis C screening Hepatitis C sc reen [facility] Start: 1963 COVID-19 Vaccine (1) COVID-19 Vaccin e (1) [facility] Start: 1957 Pneumococcal vaccination PNEUMOCOCCAL VACCINE SERIES (1 - PCV) [facility] Start: 1951 COVID-19 Vaccine (#1) COVID-19 Vacci ne (#1) [facility] Start: 1951 AAA screen AAA screen [facility] Work Phone: Start: 1951 Abdominal aortic aneurysm screening AAA screen [facility] Start: 1951 Hepatitis C screen Hepatitis C scree n [facility] Work Phone: Start: 1951 Hepatitis C screening [facility] End: 03-14-2023 Culture, Urine [facility] Comment on above: 1 Occurrences starti ng 03/14/2023 until 03/14/2023 End: 10-01-2024 Culture, [facility] Comment on above: 1 Occurrences starti ng 10/01/2024 until 10/01/2024 EKG 12 [employer] [place] EKG 12 Lead EKG 12 Lead ECG Routine 05/22/2021 3:48 PM EST [employer] Work Phone: EKG 12 Lead EKG 12 Lead ECG STAT 03/26/2024 10:21 AM EDT [facility] Glucose measurement estimated from glycated hemoglobin [facility] Work Phone: Hemoglobin A1c/Hemoglobin.total in Blood [facility] Work Phone: HHN Treatment [facility] Work Phone: Comment on above: Every 4hr while awak e until discontinued starting 08/27/2019 Every 2hr As Needed until discontinued starting 08/27/2019 End: 09-19-2022 HLA-B27 Antigen [facility] Work Phone: Comment on above: 1 Occurrences starti ng 09/19/2022 until 09/19/2022 Initiate Oxygen Ther apy Protocol Initiate Oxygen Therapy Protocol Respiratory Care Routine Daily until discontinued starting 08/27/2019 [facility] [place] Phone: Comment on above: Daily until disconti nued starting 08/27/2019 Nasal Cannula Oxygen Nasal Cannu la Oxygen Respiratory Care Routine Daily until discontinued starting 08/27/2019 [facility] Work Phone: Comment on above: Daily until disconti nued starting 08/27/2019 Oxygen therapy [[facility] Data Set] Initiate Oxygen Therapy Protocol Respiratory Care Routine Daily until discontinued starting 02/14/2021 [facility] Work Phone: Comment on above: Daily until disconti nued starting 02/14/2021 Patient Education Chest Pain (DC) [facility] Work Phone: Patient referral [facility] Work Phone: End: 10-01-2024 PSA screening [facility] Comment on above: 1 Occurrences starti ng 10/01/2024 until 10/01/2024 Standard ECG ECG ECG STAT 2:19 PM EDT [facility] Troponin I.cardiac [Mass/volume] in Serum or Plasma by High sensitivity method [facility] Work Phone: End: 09-06-2022 Vitamin D 25 Hydroxy [facility] Work Phone: Comment on above: 1 Occurrences starti ng 09/06/2022 until 09/06/2022 End: 08-29-2019 XR CHEST STANDARD (2 VW) XR CHEST STANDARD (2 VW) Imaging STAT Once for 1 Occurrences starting 08/29/2019 until 08/29/2019 [place], [place] Comment on above: Once for 1 Occurrenc es starting 08/29/2019 until 08/29/2019 XR CHEST STANDARD (2 VW) XR CHEST STANDARD (2 VW) Imaging STAT 08/29/2019 1:01 PM EST [place], [place] Immunizations Immunization Date Immunization Notes Care Provider Meng luna 08-14-2013 tetanus toxoid, redu yg diphtheria toxoid, and acellular pertussis vaccine, adsorbed [facility] Payers Date Payer Category Payer Self-pay [id number] 2019 Medicare MEDICARE HUMANA HMO PPO MEDICARE HUMANA HMO PPO [id number] 2019-Present [address] [address] [place] [address] [id number] 2018 Unknown [id number] 2016 Medicare HUMANA MEDICARE HUMANA CHOICE-PPO MEDICARE xxxxxxxxx 2016-Present [address] [address] [place] [address] xxxxxxxxx [id number] 1959 Medicare [id number] 1950 Unknown [id number] [id number] 1950 Unknown [id number] 2.16.840.1.759568.3.579.2.593 1950 Unknown [id number] 2.16.840.1.983625.3.579.2.593 1950 Unknown [id number] 2.16.840.1.376093.3.579.2.593 1950 Unknown [id number] 2.16.840.1.424752.3.579.2.983 1950 Unknown [id number] 2.16.840.1.755653.3.579.2.174 1950 Unknown [id number] 2.16.840.1.664007.3.579.2.174 1950 Unknown [id number] 2.16.840.1.520456.3.579.2.174 1950 Unknown [id number] 2.16.840.1.789422.3.579.2.174 1950 Unknown [id number] 2.16.840.1.094032.3.579.2.174 1950 Unknown [id number] 2.16.840.1.566792.3.579.2.174 1950 Unknown [id number] 2.16.840.1.785068.3.579.2.174 1950 Unknown [id number] 2.16.840.1.079493.3.579.2.174 1950 Unknown [id number] 2.16.840.1.462836.3.579.2.174 1950 Unknown [id number] 2.16.840.1.823820.3.579.2.173 1950 Unknown [id number] 2.16.840.1.950515.3.579.2.173 Medicare [id number] [id number] Unknown Unknown [id number] 2.16.840.1.091151.3.579.2.531 Unknown [id number] [id number]1 Social History Date Type Detail Facility Start: 08-27-2019 End: 06-14-2024 Tobacco smoking status [facility] Former smoker ANA ROSA ODELL [employer] Start: 12-08-1972 End: 12-09-2007 History of tobacco use Current smoker [employer]: Start: 08-27-2019 End: 05-08-2024 Cigarettes smoked current (pack per day) - Reported [employer]: Start: 08-27-2019 End: 10-01-2024 Alcohol intake Current drinker of alcohol (finding) [employer]: Start: 08-08-2012 Alcohol Comment little [employer]: Start: 1950 Sex Assigned At Not on file [employer]: Start: 07-11-2020 End: 06-14-2024 Tobacco use and exposure Never used [employer] [place] Start: 01-23-2023 End: 02-02-2023 Exposure to SARS-CoV-2 (event) Not sure [employer] [place] Start: 05-22-2021 End: 12-09-2007 Tobacco smoking status [facility]IS Smokes tobacco daily [employer] End: 12-09-2007 History of tobacco use Cigar Smoker [employer]: Start: 05-22-2021 End: 02-08-2022 Tobacco Comment cigar use rarely [employer]: Exposure to SARS-CoV -2 (event) Yes [employer] Start: 03-02-2020 End: 05-08-2024 Sex Assigned At [employer] Other Start: 01-27-2022 End: 05-08-2024 Tobacco smoking status NHIS Current some day smoker [facility] Start: 1950 Sex Assigned At Male [facility] Start: 12-08-1972 End: 12-09-2007 History of tobacco use Cigarette Smoker [employer] Work Phone: Start: 10-06-2021 End: 09-06-2022 History SDOH Financial 5 [employer] Work Phone: Start: 10-06-2021 End: 09-06-2022 History SDOH Food Worry 1 [employer] Work Phone: Start: 09-06-2022 History SDOH Transport Non-Med 2 [employer] Work Phone: How often to you hav e a drink containing alcohol? 2-3 time sa week [facility] How many standard drinks containing alcohol do you have on a typical day? 1 or 2 [employer] [facility] How often do you hav e 6 or more drinks on 1 occasion? Weekly [email or web address] [facility] Start: 11-23-2022 History SDOH Alcohol Frequency 4 [employer] Start: 11-23-2022 History SDOH Physical Activity DPW 0 [facility] [employer] How often to you hav e a drink containing alcohol? Never [facility] [employer] How many standard drinks containing alcohol do you have on a typical day? Patient does not drink [employer] (I/We) worried wheth er (my/our) food would run out before (I/we) got money to buy more. Never true [employer] Start: 04-16-2023 Gender identity Identifies as male gender (finding) [employer] Start: 04-16-2023 Sexual orientation Heterosexual (finding) [employer] Has the [employer], [employer], or [employer] threatened to shut off services in your home in past 12Mo No Ana Rosa [employer]) Start: 08-19-2012 Sex Male (finding) Ana [facility] [employer]) Medical Equipment Procedure Code Equipment Code Equipment Origin al Text Equipment Identifier Dates Sam Vasquez Iq [id number] Start: 02-17-2020 Intraocular Lens [id number] Start: 03-02-2020 Goals Date Patient Goal Desired Activity /State Functional Status Date Assessment Result Facility 01-28-2022 Functional status Patient at [facility] Work Phone: 01-27-2022 Functional status Patient at Baseline [facility] Work Phone: Mental Status Date Assessment Result Facility 01-28-2022 Cognitive function Cognitive Sta tus Patient at Baseline [facility] Work Phone: 01-27-2022 Cognitive function Cognitive Sta tus Patient at Baseline [facility] Work Phone: Clinical Notes 05-22-2021 to 10-16-2024 Dariela Zhong - 08/29/2024 11:15 AM Dariela Breaux - 08/27/2024 11:15 AM Cara Peguero PT - 08/23/2024 11:15 AM Jocelyn Krueger, RN - 05/03/2024 11:28 AM EDT Note Date & Type Note Facility 10-16-2024 Note [facility] Note Chief Complaint: Patient here c/o HERNANDEZ, fatigue, and dizziness. Echo was ordered at last visit in Feb 2024 but has not been completed. Had labs 2 weeks ago. Hasn't been taking aspirin. Says he's still having episodes of near-syncope. Denies chest pain and palpitations. HPI: Keanu Antonio is a 74 y.o. male Who has been having syncopal episodes for 20 years or more. He has seen neurologist, ENT physicians, he has had EEGs and a plethora of other investigations. Investigations have not shown any significant abnormalities. These episodes have decreased since his Coreg has been decreased. He has no new cardiovascular symptoms UPDATE 02/12/2024: Thankfully, no further syncopal episodes Has been missing several doses of his antihypertensive regimen due to travel Concerned about swelling over the right lower leg. Orthopedic surgeon for bone spur. Has had this injected in the past with partial relief. No prior history of deep venous thrombosis. UPDATE 10/16/2024 Cardiology ROS: Review of Systems Constitutional: Positive for malaise/fatigue. Cardiovascular: Positive for dyspnea on exertion, leg swelling (RLE) and near-syncope. Neurological: Positive for dizziness and light-headedness. All other systems reviewed and are negative. Past Medical History He has a past medical history of Coronary artery disease, Hyperlipidemia, Hypertension, and Sleep apnea. Surgical History He has a past surgical history that includes Cardiac catheterization (01/31/2018) and Hand surgery. Social History He reports that he has been smoking cigarettes. He does not have any smokeless tobacco history on file. No history on file for alcohol use and drug use. Family History Family History Problem Relation Name Age of Onset Other (heart valve disorder) Mother Allergies Simvastatin Medications Current Outpatient Medications: albuterol 90 mcg/actuation inhaler, Inhale 1 puff every 4 (four) hours if needed., Disp: , Rfl: tamsulosin (Flomax) 0.4 mg 24 hr capsule, in the morning., Disp: , Rfl: amLODIPine (Norvasc) 10 mg tablet, TAKE 1 TABLET EVERY MORNING, Disp: 90 tablet, Rfl: 3 aspirin 81 mg chewable tablet, Chew 1 tablet every day by oral route., Disp: , Rfl: atorvastatin (Lipitor) 40 mg tablet, TAKE 1 TABLET EVERY DAY (Patient not taking: Reported on 02/12/2024), Disp: 90 tablet, Rfl: 3 carvedilol (Coreg) 12.5 mg tablet, Take 1 tablet (12.5 mg) by mouth with breakfast and with evening meal., Disp: 180 tablet, Rfl: 3 cloNIDine (Catapres) 0.2 mg tablet, TAKE 1 TABLET TWICE DAILY, Disp: 180 tablet, Rfl: 3 furosemide (Lasix) 20 mg tablet, Take 1 tablet (20 mg) by mouth in the morning and at bedtime. (Patient not taking: Reported on 02/12/2024), Disp: 60 tablet, Rfl: 11 hydrALAZINE (Apresoline) 100 mg tablet, TAKE 1 TABLET IN THE MORNING, AT NOON, AND AT BEDTIME, Disp: 270 tablet, Rfl: 3 lisinopril 40 mg tablet, TAKE 1 TABLET EVERY MORNING, Disp: 90 tablet, Rfl: 3 Last Recorded Vitals BP 154/80 (BP Location: Right arm, Patient Position: Sitting) Pulse (!) 47 Ht 1.626 m (5' 4 ) Wt 114 kg (252 lb) SpO2 96% BMI 43.26 kg/m??? Physical Examination: GENERAL: alert and oriented x3, well developed, in no acute distress. HEAD: atraumatic, normocephalic. EYES: JACE, EOMI. NECK: trachea midline, no JVD present, no carotid bruits present. CARDIAC: S1, S2 present. RRR. No murmur, rubs, or gallops. RESPIRATORY: CTAB, no increased effort of breathing, no rales, rhonchi, or wheezing. ABDOMEN: soft, nontender, nondistended. EXTREMITIES: no lower extremity edema, peripheral pulses are 2+ bilaterally. No rash/skin discoloration present. NEURO: strength/sensation equal and symmetric in bilateral upper and lower extremities. PSYCH: appropriate mood, affect, and judgement. Echocardiogram 08/29/2022: Global left ventricular systolic function is normal EF is 60%. Mild left ventricular hypertrophy. Normal right ventricular size and systolic function. Moderate left atrial enlargement. Calcified aortic valve with no significant stenosis or regurgitation. Mild tricuspid regurgitation. Moderately elevated right-sided pressures. Stress test 08/30/2022: No acute or reversible ischemia. Fixed inferior wall perfusion defect with no wall motion abnormalities likely attenuation artifact. Left ventricular ejection fraction is 56% and normal 30-day event monitor; 11/02/2022 to 12/01/2022: The patient had 6 triggered events and 1 automatically detected event. For complaints of tiredness or fatigue, strip showed sinus rhythm, sinus bradycardia, sinus rhythm with premature atrial contractions. There were no significant arrhythmias seen. 12 lead EKG 10/16/2024 Sinus bradycardia, 47 bpm, first-degree AV block, nonspecific ST-T wave abnormalities, abnormal EKG Assessment: 1. Coronary atherosclerosis I25.10: Atherosclerotic heart disease of saxman coronary roland (more content not included)... [facility] 08-29-2024 History of Present illness Narrative Images from the original note were not included. [facility] Daily Note Date: 08/29/2024 Patient Name: Keanu Antonio : 1950 (74 y.o.) Referring Provider (secondary): LISSY Montaño Diagnosis: Chronic pain of right ankle, osteoarthritis R ankle, R knee pain Treatment Diagnosis: R ankle pain, R knee pain Onset Date: 08/13/24 PT Insurance Information: Cat[employer]ter copay Total # of Visits Approved: 10 Per Physician Order Total # of Visits to Date: 3 Plan of Care/Certification Expiration Date: 09/23/24 Pre-Treatment Pain: 6/10 Assessment Assessment: Pain 6/10.Performed ex as outlined.. He notes pain worsens with driving. Pt notes no benefit from taping. Performed ex as outlined, issued tband for HEP PF. Manual therapy for swelling. Plan Continue with current plan of care Exercises/Modalities/Manual: See DocFlow Sheet Education: Access Code: [email or web address] URL: [email or web address] Date: 08/29/2024 Prepared by: Dorita Zhong Exercises - Long Sitting Ankle Plantar Flexion with Resistance - 10 x daily - 7 x weekly - 2 sets - 10 reps Goals (Total # of Visits to Date: 3) Short Term Goals Time Frame for Short Term Goals: 6 Short Term Goal 1: Patient to be educated on and independent with HEP Short Term Goal 2: Decrease pain R ankle 5/10 at worst x3 days Jail Goals Time Frame for Veterinary Receptionist Goals : 10 Jail Goal 1: Decrease pain R ankle 2/10 at worst x3 days Veterinary Receptionist Goal 2: Improve fucntional mobility with LEFS score >40/80 (from 30/80) Treatment Tolerance: Treatment Tolerance: Tolerated treatment well. Post Treatment Pain: 5/10 Time In: 1120 Time Out : 1200 Timed Code Treatment Minutes: 40 Minutes Total Treatment Time: 40 Minutes Dariela Zhong [employer] Date: 08/29/2024 documented in this encounter Ana Rosa [facility] 08-27-2024 History of Present illness Narrative Images from the original note were not included. [facility] Daily Note Date: 08/27/2024 Patient Name: Keanu Antonio : 1950 (74 y.o.) Referring Provider (secondary): LISSY Montaño Diagnosis: Chronic pain of right ankle, osteoarthritis R ankle, R knee pain Treatment Diagnosis: R ankle pain, R knee pain Onset Date: 08/13/24 PT Insurance Information: [employer] copay Total # of Visits Approved: 10 Per Physician Order Total # of Visits to Date: 3 Plan of Care/Certification Expiration Date: 09/23/24 Pre-Treatment Pain: 7/10 Assessment Assessment: Pain 7/10. Notes constant throbbing. Performed ex as outlined followed by manual therapy for swelling and flexibility. No change in pain after session. Plan Continue with current plan of care Exercises/Modalities/Manual: See DocFlow Sheet Education: ex/taping Goals (Total # of Visits to Date: 3) Short Term Goals Time Frame for Short Term Goals: 6 Short Term Goal 1: Patient to be educated on and independent with HEP Short Term Goal 2: Decrease pain R ankle 5/10 at worst x3 days Veterinary Receptionist Goals Time Frame for Veterinary Receptionist Goals : 10 Veterinary Receptionist Goal 1: Decrease pain R ankle 2/10 at worst x3 days Jail Goal 2: Improve fucntional mobility with LEFS score >40/80 (from 30/80) Treatment Tolerance: Treatment Tolerance: Tolerated treatment well. Post Treatment Pain: 6/10 Time In: 1130 Time Out : 1210 Timed Code Treatment Minutes: 40 Minutes Total Treatment Time: 40 Minutes Dariela Zhong [employer] Date: 08/27/2024 documented in this encounter Bon [facility] 08-23-2024 History of Present illness Narrative Images from the original note were not included. [facility] Daily Note Date: 08/23/2024 Patient Name: Keanu Antonio : 1950 (74 y.o.) Referring Provider (secondary): LISSY Montaño Diagnosis: Chronic pain of right ankle, osteoarthritis R ankle, R knee pain Treatment Diagnosis: R ankle pain, R knee pain Onset Date: 08/13/24 PT Insurance Information: [employer] copay Total # of Visits Approved: 10 Per Physician Order Total # of Visits to Date: 2 Plan of Care/Certification Expiration Date: 09/23/24 Pre-Treatment Pain: 8/10 Assessment Assessment: Patient c/o 8/10 pain R ankle. Patient having moderate edema in R lower leg. Completed therex and manual therapy per Doc Flow. Taped R ankle at end of session. Patient walking with cane and limp due to pain R ankle. Plan to educated patient on and issue HEp next visit. Plan Continue with current plan of care Exercises/Modalities/Manual: See DocFlow Sheet Education: On ex form and elevating leg Goals (Total # of Visits to Date: 2) Short Term Goals Time Frame for Short Term Goals: 6 Short Term Goal 1: Patient to be educated on and independent with HEP Short Term Goal 2: Decrease pain R ankle 5/10 at worst x3 days Veterinary Receptionist Goals Time Frame for Jail Goals : 10 Jail Goal 1: Decrease pain R ankle 2/10 at worst x3 days Jail Goal 2: Improve fucntional mobility with LEFS score >40/80 (from 30/80) Treatment Tolerance: Treatment Tolerance: Tolerated treatment well. Post Treatment Pain: 8/10 Time In: 11:25 Time Out : 12:05 Timed Code Treatment Minutes: 35 Minutes Total Treatment Time: 40 Minutes Cara Wilkerson, PT Date: 08/23/2024 documented in this encounter [facility] 05-08-2024 Hospital Discharge instructions Erwin Lincoln MD - 05/08/2024 11:57 AM EDT Images from the original note were not included. 1) You have diverticulosis, which is a common finding and my never give your problems 2) Otherwise your colon looks good. Screening colonoscopy is not recommended past the age of 75. This does not preclude diagnostic colonoscopy (colonoscopy for symptoms).. 3) Follow up with me as desired. Discharge Instructions for Colonoscopy Colonoscopy is a visual exam of the lining of the large intestine, also called the bowel or colon, with a colonoscope. A colonoscope is a flexible tube with a light and a viewing device. It allows the doctor to view the inside of the colon through a tiny video camera. Colonoscopy is performed for many reasons: unexplained anemia , pain, diarrhea , bloody stools, cancer screening, among many other reasons. Complications from a colonoscopy are rare. Some possible serious complications include perforated bowel (which might require surgery) and bleeding (which could require blood transfusion ). Minor complications include bloating, gas, and cramping that can last for 1-2 days after the procedure. Because air is put into your colon during the procedure, it is normal to pass large amounts of air from your rectum. You may not have a bowel movement for 1-3 days after the procedure. What You Will Need Someone to drive you home after the procedure Steps to Take Home Care Rest when you get home. Because the sedative will make you drowsy, don't drive, operate machinery, or make important decisions the day of the procedure. Feelings of bloating, gas, or cramping may persist for 24 hours. Diet Try sips of water first. If tolerated, resume regular diet or the diet recommended by your physician. Do not drink alcohol for 24 hours. Physical Activity You may return to work tomorrow. Do not drive, operate heavy machinery, or do activities that require coordination or balance until tomorrow Otherwise, return to your normal routine as soon as you are comfortable to do so, which is usually the next day after the procedure. Medications When taking medications, it's important to: Take your medication as directednot more, not less, not at a different time. Do not stop taking them without consulting your healthcare provider. Don't share them with anyone else. Know what effects and side effects to expect, and report them to your healthcare provider. If you are taking more than one drug, even if it is an [id number] medication, herb, or dietary supplement, be sure to check with a physician or pharmacist about drug interactions. Plan ahead for refills so you don't run out. Follow-up You will be called with your results usually within a week or We will have you make a follow up appointment You are always welcome to follow up in person if you have questions or there are other issue you would like addressed Call Your Doctor If Any of the Following Occurs Monitor your recovery once you leave the hospital. As soon as you have a problem, alert your doctor. If any of the following occur, call your doctor or come to the emergency room Bleeding from your rectum; notify your doctor if you pass a teaspoonful or more of blood Black, tarry stools Severe abdominal pain Hard, swollen abdomen Signs of infection, including fever or chills Inability to pass gas or stool Coughing, shortness of breath, chest pain, severe nausea or vomiting In case of an emergency, call 911 immediately. Learning About Diverticulosis and Diverticulitis What are diverticulosis and diverticulitis? In diverticulosis and diverticulitis, pouches called diverticula form in the wall of the large intestine, or colon. In diverticulosis, the pouches do not cause any pain or other symptoms. In diverticulitis, the pouches get inflamed or infected and cause symptoms. Doctors aren't sure what causes these pouches in the colon. But they think that a low-fiber diet may play a role. A low-fiber diet can cause small, hard stools. This means it takes more pressure in the colon to move stools out of the body. This puts more pressure on the sims of the colon. The pressure from this may cause pouches to form in weak spots along the colon. What are the symptoms? In diverticulosis, most people don't have symptoms. In diverticulitis, symptoms may last from a few hours to a week or more. They include: Belly pain. This is usually in the lower left side. It is sometimes worse when you move. This is the most common symptom. Fever and chills. Bloating and gas. Diarrhea or constipation. Nausea and sometimes vomiting. Not feeling like eating. If the pouches bleed, it is called diverticular bleeding. How can you prevent diverticulitis? You may be able to lower your chance of getting diverticulitis. You can do this by taking steps to prevent constipation. Eat fruits, vegetables, beans, and whole grains every day. These foods are high in fiber. Drink plenty of fluids. If you have kidney, heart, or liver disease and have to limit fluids, talk with your doctor before you increase the amount of fluids you drink. Get at least 30 minutes of exercise on most days of the week. Walking is a good choice. Take a fiber supplement (such as Citrucel or Metamucil) every day if needed. Read and follow all instructions on the label. Schedule time each day for a bowel movement. Having a daily routine may help. Take your time and do not strain when having a bowel movement. How are these problems treated? The best way to treat diverticulosis is to avoid constipation. Treatment for diverticulitis includes antibiotics. It often includes a change in your diet. You may need only liquids at first. Your doctor may suggest medicines for pain or belly cramps. In some cases, surgery may be needed. Follow-up care is a boggs part of your treatment and safety. Be sure to make and go to all appointments, and call your doctor if you are having problems. It's also a good idea to know your test results and keep a list of the medicines you take. Where can you learn more? Go to https://www.[employer].net/patient Ed and enter E426 to learn more about Learning About Diverticulosis and Diverticulitis. Current as of: April 27, 2023 Content Version: 14.2 2023 [employer]. Care instructions adapted under license by [employer] [facility]. If you have questions about a medical condition or this instruction, always ask your healthcare professional. [employer] disclaims any warranty or liability for your use of this information. documented in this encounter Bon [facility] 05-03-2024 History of Present illness Narrative [facility] Preadmission Testing Name: Keanu Antonio : 1950 Patient (home) Procedure: COLONOSCOPY Date of Procedure: 05/08/2024 Surgeon: Erwin Lincoln MD Ht: 162.6 cm (5' 4 ) Wt: 108.9 kg (240 lb) Wt method: Stated Allergies: Allergies Allergen Reactions Simvastatin Other (See Comments) There were no vitals filed for this visit. No LMP for male patient. Do you take blood thinners? [] Yes [x] No Instructed to stop blood thinners prior to procedure? [] Yes [] No [x] N/A Do you have sleep apnea? [x] Yes [] No Do you have acid reflux ? [] Yes [x] No Do you have hiatal hernia? [x] Yes [] No Do you ever experience motion sickness? [] Yes [x] No Have you had a respiratory infection or sore throat in last 4 weeks before surgery? [] Yes [x] No Do you have poorly controlled asthma or COPD? Difficulty with intubation in past? [] Yes [x] No [] Yes [x] No Do you have a history of angina in the last month or symptomatic arrhythmia? [] Yes [x] No Do you have significant central nervous system disease? [] Yes [x] No Have you had an EKG, labs, or chest xray in last 12 months? If yes provide copies to anesthesia [x] Yes [] No [x] Lab [x] EKG [] CXR Have you had a stress test? [x] Yes [] No When/where:[facility] Was it normal? [] Yes [] No Do you or your family have a history of Malignant Hyperthermia? [] Yes [x] No Do you smoke? [] Yes [x] No Please refrain from smoking on the day of surgery. Patient instructed on: [x] NPO Status [x] Meds to Take [] Hold GLP-1 Receptor Agonist [x] Ride Home [x] No Jewelry/Contact Lenses/Nail Sami [x] Prep/Lax/Clear Liquids [] Chlorhexidene DOS Patient Needs [] HCG [] Blood Sugar [] PT/INR [] T&S Do you have any metal allergies? [] Yes [x] No If yes, to what metals: Patient instructed on the pre-operative, intra-operative, and post-operative process? Yes Medication instructions reviewed with patient? Yes documented in this encounter Ana [facility] 03-26-2024 Hospital Discharge instructions Dennis Mina DO - 03/26/2024 10:30 AM EDT Call your family doctor for follow-up. Return to ER for worsening symptoms. The following attachments cannot be sent through Care Everywhere.Hypertension: General Info (Cameroonian)documented in this encounter [facility] 02-12-2024 Note [facility] Cardiology Clinic Note Chief Complaint: Chief Complaint: One year follow up.Had routine labs with a lipid panel last week. C/o lightheadedness and syncope, denies chest pain and sob. Right leg swelling. HPI: Keanu Antonio is a 73 y.o. male Who has been having syncopal episodes for 20 years or more. He has seen neurologist, ENT physicians, he has had EEGs and a plethora of other investigations. Investigations have not shown any significant abnormalities. These episodes have decreased since his Coreg has been decreased. He has no new cardiovascular symptoms UPDATE 02/12/2024: Thankfully, no further syncopal episodes Has been missing several doses of his antihypertensive regimen due to travel Concerned about swelling over the right lower leg. Orthopedic surgeon for bone spur. Has had this injected in the past with partial relief. No prior history of deep venous thrombosis. Cardiology ROS: Review of Systems Constitutional: Positive for malaise/fatigue. Cardiovascular: Positive for leg swelling and syncope. Musculoskeletal: Positive for joint pain. Neurological: Positive for dizziness and light-headedness. All other systems reviewed and are negative. Past Medical History He has a past medical history of Coronary artery disease, Hyperlipidemia, Hypertension, and Sleep apnea. Surgical History He has a past surgical history that includes Cardiac catheterization (01/31/2018) and Hand surgery. Social History He reports that he has been smoking cigarettes. He does not have any smokeless tobacco history on file. No history on file for alcohol use and drug use. Family History Family History Problem Relation Name Age of Onset Other (heart valve disorder) Mother Allergies Simvastatin Medications Current Outpatient Medications: amLODIPine (Norvasc) 10 mg tablet, TAKE 1 TABLET EVERY MORNING, Disp: 90 tablet, Rfl: 3 carvedilol (Coreg) 12.5 mg tablet, Take 1 tablet (12.5 mg) by mouth with breakfast and with evening meal., Disp: 180 tablet, Rfl: 3 cloNIDine (Catapres) 0.2 mg tablet, TAKE 1 TABLET TWICE DAILY, Disp: 180 tablet, Rfl: 3 hydrALAZINE (Apresoline) 100 mg tablet, TAKE 1 TABLET IN THE MORNING, AT NOON, AND AT BEDTIME, Disp: 270 tablet, Rfl: 3 lisinopril 40 mg tablet, TAKE 1 TABLET EVERY MORNING, Disp: 90 tablet, Rfl: 0 aspirin 81 mg chewable tablet, Chew 1 tablet every day by oral route., Disp: , Rfl: atorvastatin (Lipitor) 40 mg tablet, TAKE 1 TABLET EVERY DAY (Patient not taking: Reported on 02/12/2024), Disp: 90 tablet, Rfl: 3 furosemide (Lasix) 20 mg tablet, Take 1 tablet (20 mg) by mouth in the morning and at bedtime. (Patient not taking: Reported on 02/12/2024), Disp: 60 tablet, Rfl: 11 Last Recorded Vitals BP (!) 186/83 Pulse 60 Ht 1.626 m (5' 4 ) Wt 112 kg (246 lb) SpO2 98% BMI 42.23 kg/m??? Physical Examination: GENERAL: alert and oriented x3, well developed, in no acute distress. HEAD: atraumatic, normocephalic. EYES: JACE, EOMI. NECK: trachea midline, no JVD present, no carotid bruits present. CARDIAC: S1, S2 present. RRR. No murmur, rubs, or gallops. RESPIRATORY: CTAB, no increased effort of breathing, no rales, rhonchi, or wheezing. ABDOMEN: soft, nontender, nondistended. EXTREMITIES: no lower extremity edema, peripheral pulses are 2+ bilaterally. No rash/skin discoloration present. NEURO: strength/sensation equal and symmetric in bilateral upper and lower extremities. PSYCH: appropriate mood, affect, and judgement. Echocardiogram 08/29/2022: Global left ventricular systolic function is normal EF is 60%. Mild left ventricular hypertrophy. Normal right ventricular size and systolic function. Moderate left atrial enlargement. Calcified aortic valve with no significant stenosis or regurgitation. Mild tricuspid regurgitation. Moderately elevated right-sided pressures. Stress test 08/30/2022: No acute or reversible ischemia. Fixed inferior wall perfusion defect with no wall motion abnormalities likely attenuation artifact. Left ventricular ejection fraction is 56% and normal 30-day event monitor; 11/02/2022 to 12/01/2022: The patient had 6 triggered events and 1 automatically detected event. For complaints of tiredness or fatigue, strip showed sinus rhythm, sinus bradycardia, sinus rhythm with premature atrial contractions. There were no significant arrhythmias seen. Assessment: 1. Coronary atherosclerosis I25.10: Atherosclerotic heart disease of saxman coronary artery without angina pectoris 2. Atypical chest pain. 3. Hyperlipidemia - Patient states his lipid profile at PCPs office his last year was good E78.5: Hyperlipidemia, unspecified 4. Essential hypertension - Poorly controlled I10: Essential (primary) hypertension 5. Syncope and collapse -recurrent, longstanding Continue adequate hydration, change positions slowly call for any concerns 6. Aortic stenosis murmur 7. Right lower (more content not included)... [facility] 02-02-2023 Physician Emergency department Note Emergency Department Report [facility] Service Date:.02/02/23 PCP: No primary care provider on file. Chief Complaint: Chief Complaint Patient presents with Chest Pain Pt. Complains of chest pain that radiates down Lt. Arm that started a little over an hour ago. Pt given 2 Nitroglycerin and 324mg of ASA in route to ER. Pain 2/10 in chest. HPI Keanu Antonio is a 72 y.o. male presents to the ED today due to chest pain. Patient states he had some chest pain they felt was radiating down his left arm about an hour prior to arrival. The given aspirin and nitro EN route. He has a history of coronary artery disease with a stent. He states his last stress test was approximately 2 years ago. Nothing seems to make the symptoms better or worse. The symptoms occurred at rest without exertion. Review of Systems: Review of Systems Constitutional: Negative for fever. Respiratory: Negative for shortness of breath. Past Medical History: Past Medical History: Diagnosis Date Essential hypertension, benign Past Surgical History: Past Surgical History: Procedure Laterality Date EXTRACTION EXTRACAPSULAR CATARACT W/ IMPLANT (ECCE IOL) Left 03/02/2020 Laterality: Left; Surgeon: Julius Collins MD; Location: [facility] OR EXTRACTION EXTRACAPSULAR CATARACT W/ IMPLANT (ECCE IOL) Right 02/17/2020 Laterality: Right; Surgeon: Julius Collins MD; Location: [facility] OR ARTHROSCOPY SHOULDER Right COLONOSCOPY DIAGNOSTIC CORONARY STENT PLACEMENT EGD DIAGNOSTIC HEART CATHETERIZATION x6 REDUCTION CLOSED CARPOMETACARPAL FX DISLOCATION THUMB Left crushed Allergies: Allergies Allergen Reactions Simvastatin Flushing Medications: Patient's Medications New Prescriptions No medications on file Previous Medications ALBUTEROL (VENTOLIN HFA) 108 (90 BASE) MCG/ACT AERO SOLN INHALER Inhale 90 mcg daily. AMLODIPINE 10 MG TABLET Take 10 mg by mouth daily. ASPIRIN (ASPIR-LOW) [address] TABLET Take 81 mg by mouth At bedtime. ATORVASTATIN 40 MG TABLET Take 40 mg by mouth daily. CARVEDILOL 12.5 MG TABLET Take 12.5 mg by mouth daily. HYDRALAZINE 100 MG TABLET Take 100 mg by mouth 2 times daily. LISINOPRIL 40 MG TABLET Take 40 mg by mouth daily. Modified Medications No medications on file Discontinued Medications No medications on file Family History: History reviewed. No pertinent family history. Social History: Social History Socioeconomic History Marital status: Spouse name: Not on file Number of children: Not on file Years of education: Not on file Highest education level: Not on file Occupational History Not on file Tobacco Use Smoking status: Some Days Types: Cigars Smokeless tobacco: Never Substance and Sexual Activity Alcohol use: Yes Drug use: Never Sexual activity: Not on file Other Topics Concern Not on file Social History Narrative Not on file Social Determinants of Health Financial Resource Strain: Not on file Food Insecurity: Not on file Transportation Needs: Not on file Physical Activity: Not on file Stress: Not on file Social Connections: Not on file Intimate Partner Violence: Not on file Housing Stability: Not on file Physical Exam: Physical Exam Vitals and nursing note reviewed. Constitutional: Appearance: He is well-developed. HENT: Head: Normocephalic and atraumatic. Cardiovascular: Rate and Rhythm: Regular rhythm. Bradycardia present. Heart sounds: Normal heart sounds. Pulmonary: Effort: Pulmonary effort is normal. Breath sounds: Normal breath sounds. Skin: General: Skin is warm. Capillary Refill: Capillary refill takes less than 2 seconds. Neurological: General: No focal deficit present. Mental Status: He is alert and oriented to person, place, and time. Psychiatric: Mood and Affect: Mood normal. Behavior: Behavior normal. Vital Signs During ED Visit Patient Vitals for the past 24 hrs: BP Temp Temp src Pulse Resp SpO2 02/02/23 1730 (!) 206/95 -- -- (!) 49 -- 96 % 02/02/23 1630 182/83 -- -- (!) 47 16 97 % 02/02/23 1425 153/70 97.9 F (36.6 C) Oral (!) 49 17 -- Orders/Results: Orders Placed This Encounter XR CHEST AP PORTABLE MAGNESIUM LIPASE TSH Troponin I, High sensitivity COMPREHENSIVE METABOLIC PANEL CBC, EDIF, PLATELET D-DIMER,QUANTITATIVE Troponin I, High sensitivity ECG Results for orders placed or performed during the hospital encounter of 02/02/23 MAGNESIUM Result Value Ref Range MAGNESIUM 2.3 1.6 - 2.3 MG/DL LIPASE Result Value Ref Range LIPASE 296 23 - 300 U/L TSH Result Value Ref Range TSH 1.330 0.46 - 4.68 uIU/ML TROPONIN I, HIGH SENSITIVITY Result Value Ref Range TROPONIN I, HIGH SENSITIVITY 16 0 - 20 pg/mL COMPREHENSIVE METABOLIC PANEL Result Value Ref Range Glucose 92 70 - 100 MG/DL BUN 18 7 - 20 MG/DL CREATININE SERUM 1.20 0.7 - 1.2 MG/DL SODIUM 139 137 - 145 MMOL/L POTASSIUM 4.2 3.5 - 5.1 MMOL/L CHLORIDE 105 98 - 107 MMOL/L CALCIUM 9.0 8.4 - 10.2 MG/DL PROTEIN, TOTAL 6.3 6.3 - 8.2 GM/DL Albumin 3.6 3.5 - 5.0 G/dl BILIRUBIN, TOTAL 0.2 0.2 - 1.3 MG/DL AST 23 17 - 59 IU/L ALKALINE PHOSPHATASE 55 38 - 126 IU/L CARBON DIOXIDE (CO2) 28 22 - 30 MMOL/L A/G Ratio 1.3 1.3 - 2.2 RATIO ALT 22 <50 IU/L ESTIMATED GFR, NON AMER 63 ml/min/1.73sq.m ESTIMATED GFR, 77 ml/min/1.73sq.m GFR COMMENT Average GFR for 70+ years old = 75. CBC, EDIF, PLATELET Result Value Ref Range WBC (WHITE BLOOD COUNT) 5.6 3.6 - 11.0 10*3/uL RBC 4.51 4.0 - 6.1 10*6/uL HEMOGLOBIN (HGB) 13.4 (L) 14.0 - 18.0 G/DL HEMATOCRIT (HCT) 39.9 (L) 42.0 - 52.0 % MEAN CELL VOLUME 88.5 80.0 - 100.0 FL Mean Cell HGB 29.8 26.0 - 35.0 PG MEAN CELL HGB CONCENTRATION 33.7 27.0 - 37.0 G/DL RBC DISTRIBUTION 14.4 11.5 - 14.5 % PLATELET COUNT 263 130 - 400 10*3/uL MEAN PLATELET VOLUME 7.8 7.4 - 11.0 FL DIFFERENTIAL TYPE AUTO DIFF % NEUTROPHILS 60.6 37.0 - 75.0 % LYMPHOCYTE 20.8 20.0 - 55.0 % MONOCYTE % 12.4 (H) 0.0 - 10.0 % EOSINOPHIL % 5.1 0.0 - 11.0 % BASOPHIL % 1.1 0.0 - 2.0 % Absolute Neutrophil Count 3.4 1.4 - 6.5 10*3/uL LYMPHOCYTES, ABSOLUTE 1.2 1.2 - 3.4 10*3/uL MONOCYTES, ABSOLUTE 0.7 0.0 - 0.7 10*3/uL ABSOLUTE EOSINOPHIL COUNT 0.3 0.0 - 0.7 10*3/uL ABSOLUTE BASOPHIL COUNT 0.1 0.0 - 0.2 10*3/uL D-DIMER,QUANTITATIVE Result Value Ref Range D-DIMER 0.35 <0.50 g/ml TROPONIN I, HIGH SENSITIVITY Result Value Ref Range TROPONIN I, HIGH SENSITIVITY 18 0 - 20 pg/mL Radiographic Imaging XR CHEST AP PORTABLE Final Result IMPRESSION: 1. Aortic ASVD. 2. Suspected mitral valvular calcification. 3. No acute pulmonary pathology identified. Procedures: Procedures Moderate Sedation Procedure: No ED Summary/MDM Medical Decision Making Amount and/or Complexity of Data Reviewed Labs: ordered. Radiology: ordered. ECG/medicine tests: ordered and independent interpretation performed. Details: EKG sinus bradycardia first-degree AV block nonspecific ST changes rate 50 ID interval 220 QRS 92 QTC 412 Discussion of management or test interpretation with external provider(s): Patient was chest pain-free prior to discharge. No change in the delta troponin. 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 Clinical Impression: 1. Chest pain, unspecified type No follow-ups on file. New Prescriptions No medications on file Discontinued Medications No medications on file An After Visit Summary was printed and given to the patient with above information. . . Ramsey Rodríguez MD 02/02/23 1735 [facility] 02-02-2023 Emergency department Note Emergency Department Report [facility] Service Date:.02/02/23 PCP: No primary care provider on file. Chief Complaint: Chief Complaint Patient presents with Chest Pain Pt. Complains of chest pain that radiates down Lt. Arm that started a little over an hour ago. Pt given 2 Nitroglycerin and 324mg of ASA in route to ER. Pain 2/10 in chest. HPI Keanu Antonio is a 72 y.o. male presents to the ED today due to chest pain. Patient states he had some chest pain they felt was radiating down his left arm about an hour prior to arrival. The given aspirin and nitro EN route. He has a history of coronary artery disease with a stent. He states his last stress test was approximately 2 years ago. Nothing seems to make the symptoms better or worse. The symptoms occurred at rest without exertion. Review of Systems: Review of Systems Constitutional: Negative for fever. Respiratory: Negative for shortness of breath. Past Medical History: Past Medical History: Diagnosis Date Essential hypertension, benign Past Surgical History: Past Surgical History: Procedure Laterality Date EXTRACTION EXTRACAPSULAR CATARACT W/ IMPLANT (ECCE IOL) Left 03/02/2020 Laterality: Left; Surgeon: Julius Collins MD; Location: [facility] OR EXTRACTION EXTRACAPSULAR CATARACT W/ IMPLANT (ECCE IOL) Right 02/17/2020 Laterality: Right; Surgeon: Julius Collins MD; Location: [facility] OR ARTHROSCOPY SHOULDER Right COLONOSCOPY DIAGNOSTIC CORONARY STENT PLACEMENT EGD DIAGNOSTIC HEART CATHETERIZATION x6 REDUCTION CLOSED CARPOMETACARPAL FX DISLOCATION THUMB Left crushed Allergies: Allergies Allergen Reactions Simvastatin Flushing Medications: Patient's Medications New Prescriptions No medications on file Previous Medications ALBUTEROL (VENTOLIN HFA) 108 (90 BASE) MCG/ACT AERO SOLN INHALER Inhale 90 mcg daily. AMLODIPINE 10 MG TABLET Take 10 mg by mouth daily. ASPIRIN (ASPIR-LOW) [address] TABLET Take 81 mg by mouth At bedtime. ATORVASTATIN 40 MG TABLET Take 40 mg by mouth daily. CARVEDILOL 12.5 MG TABLET Take 12.5 mg by mouth daily. HYDRALAZINE 100 MG TABLET Take 100 mg by mouth 2 times daily. LISINOPRIL 40 MG TABLET Take 40 mg by mouth daily. Modified Medications No medications on file Discontinued Medications No medications on file Family History: History reviewed. No pertinent family history. Social History: Social History Socioeconomic History Marital status: Spouse name: Not on file Number of children: Not on file Years of education: Not on file Highest education level: Not on file Occupational History Not on file Tobacco Use Smoking status: Some Days Types: Cigars Smokeless tobacco: Never Substance and Sexual Activity Alcohol use: Yes Drug use: Never Sexual activity: Not on file Other Topics Concern Not on file Social History Narrative Not on file Social Determinants of Health Financial Resource Strain: Not on file Food Insecurity: Not on file Transportation Needs: Not on file Physical Activity: Not on file Stress: Not on file Social Connections: Not on file Intimate Partner Violence: Not on file Housing Stability: Not on file Physical Exam: Physical Exam Vitals and nursing note reviewed. Constitutional: Appearance: He is well-developed. HENT: Head: Normocephalic and atraumatic. Cardiovascular: Rate and Rhythm: Regular rhythm. Bradycardia present. Heart sounds: Normal heart sounds. Pulmonary: Effort: Pulmonary effort is normal. Breath sounds: Normal breath sounds. Skin: General: Skin is warm. Capillary Refill: Capillary refill takes less than 2 seconds. Neurological: General: No focal deficit present. Mental Status: He is alert and oriented to person, place, and time. Psychiatric: Mood and Affect: Mood normal. Behavior: Behavior normal. Vital Signs During ED Visit Patient Vitals for the past 24 hrs: BP Temp Temp src Pulse Resp SpO2 02/02/23 1730 (!) 206/95 -- -- (!) 49 -- 96 % 02/02/23 1630 182/83 -- -- (!) 47 16 97 % 02/02/23 1425 153/70 97.9 F (36.6 C) Oral (!) 49 17 -- Orders/Results: Orders Placed This Encounter XR CHEST AP PORTABLE MAGNESIUM LIPASE TSH Troponin I, High sensitivity COMPREHENSIVE METABOLIC PANEL CBC, EDIF, PLATELET D-DIMER,QUANTITATIVE Troponin I, High sensitivity ECG Results for orders placed or performed during the hospital encounter of 02/02/23 MAGNESIUM Result Value Ref Range MAGNESIUM 2.3 1.6 - 2.3 MG/DL LIPASE Result Value Ref Range LIPASE 296 23 - 300 U/L TSH Result Value Ref Range TSH 1.330 0.46 - 4.68 uIU/ML TROPONIN I, HIGH SENSITIVITY Result Value Ref Range TROPONIN I, HIGH SENSITIVITY 16 0 - 20 pg/mL COMPREHENSIVE METABOLIC PANEL Result Value Ref Range Glucose 92 70 - 100 MG/DL BUN 18 7 - 20 MG/DL CREATININE SERUM 1.20 0.7 - 1.2 MG/DL SODIUM 139 137 - 145 MMOL/L POTASSIUM 4.2 3.5 - 5.1 MMOL/L CHLORIDE 105 98 - 107 MMOL/L CALCIUM 9.0 8.4 - 10.2 MG/DL PROTEIN, TOTAL 6.3 6.3 - 8.2 GM/DL Albumin 3.6 3.5 - 5.0 G/dl BILIRUBIN, TOTAL 0.2 0.2 - 1.3 MG/DL AST 23 17 - 59 IU/L ALKALINE PHOSPHATASE 55 38 - 126 IU/L CARBON DIOXIDE (CO2) 28 22 - 30 MMOL/L A/G Ratio 1.3 1.3 - 2.2 RATIO ALT 22 <50 IU/L ESTIMATED GFR, NON AMER 63 ml/min/1.73sq.m ESTIMATED GFR, 77 ml/min/1.73sq.m GFR COMMENT Average GFR for 70+ years old = 75. CBC, EDIF, PLATELET Result Value Ref Range WBC (WHITE BLOOD COUNT) 5.6 3.6 - 11.0 10*3/uL RBC 4.51 4.0 - 6.1 10*6/uL HEMOGLOBIN (HGB) 13.4 (L) 14.0 - 18.0 G/DL HEMATOCRIT (HCT) 39.9 (L) 42.0 - 52.0 % MEAN CELL VOLUME 88.5 80.0 - 100.0 FL Mean Cell HGB 29.8 26.0 - 35.0 PG MEAN CELL HGB CONCENTRATION 33.7 27.0 - 37.0 G/DL RBC DISTRIBUTION 14.4 11.5 - 14.5 % PLATELET COUNT 263 130 - 400 10*3/uL MEAN PLATELET VOLUME 7.8 7.4 - 11.0 FL DIFFERENTIAL TYPE AUTO DIFF % NEUTROPHILS 60.6 37.0 - 75.0 % LYMPHOCYTE 20.8 20.0 - 55.0 % MONOCYTE % 12.4 (H) 0.0 - 10.0 % EOSINOPHIL % 5.1 0.0 - 11.0 % BASOPHIL % 1.1 0.0 - 2.0 % Absolute Neutrophil Count 3.4 1.4 - 6.5 10*3/uL LYMPHOCYTES, ABSOLUTE 1.2 1.2 - 3.4 10*3/uL MONOCYTES, ABSOLUTE 0.7 0.0 - 0.7 10*3/uL ABSOLUTE EOSINOPHIL COUNT 0.3 0.0 - 0.7 10*3/uL ABSOLUTE BASOPHIL COUNT 0.1 0.0 - 0.2 10*3/uL D-DIMER,QUANTITATIVE Result Value Ref Range D-DIMER 0.35 <0.50 g/ml TROPONIN I, HIGH SENSITIVITY Result Value Ref Range TROPONIN I, HIGH SENSITIVITY 18 0 - 20 pg/mL Radiographic Imaging XR CHEST AP PORTABLE Final Result IMPRESSION: 1. Aortic ASVD. 2. Suspected mitral valvular calcification. 3. No acute pulmonary pathology identified. Procedures: Procedures Moderate Sedation Procedure: No ED Summary/MDM Medical Decision Making Amount and/or Complexity of Data Reviewed Labs: ordered. Radiology: ordered. ECG/medicine tests: ordered and independent interpretation performed. Details: EKG sinus bradycardia first-degree AV block nonspecific ST changes rate 50 ID interval 220 QRS 92 QTC 412 Discussion of management or test interpretation with external provider(s): Patient was chest pain-free prior to discharge. No change in the delta troponin. 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 Clinical Impression: 1. Chest pain, unspecified type No follow-ups on file. New Prescriptions No medications on file Discontinued Medications No medications on file An After Visit Summary was printed and given to the patient with above information. . . Ramsey Rodríguez MD 02/02/23 173 documented in this encounter [facility] 08-29-2022 Note CARDIAC STRESS TEST Requesting Physician: Procedure Date:08/29/2022 This is a Lexiscan Stress Test with myocardial perfusion imaging performed at the [facility] on 08/29/2022. Informed consent was obtained. An intravenous line was secured. The patient was attached to electrocardiographic monitoring. Baseline vital signs were obtained. Intravenous Lexiscan was injected at a dose of 0.4 mg, followed by administration of Cardiolite. The patient then went on to obtain myocardial perfusion imaging. Resting heart rate was 55 BPM and maximal heart rate was 81 BPM. Resting blood pressure was 150/84 and maximal blood pressure was 184/92. Baseline ECG showed sinus rhythm with non-specific ST depressions and T-wave inversions in the inferior leads. Following infusion of Lexiscan, there were no changes. Final ECG was similar to baseline. IMPRESSION: 1. No evidence of ischemic ECG changes following infusion of Lexiscan. 2. Baseline ECG showed no specific ST depressions with T-wave inversions that persisted during the test. 3. Myocardial perfusion images will be reported separately. [facility] 01-28-2022 Consult note Note Date/Time January 28, 2022 11:54am [facility] [address] [place] [address] Cardiology Consult Note Signed Patient: Keanu Antonio MR#: [id number] : 1950 Acct:[id number] Age/Sex: 71 / M Adm Date: 2 Loc: Room: [address] [place] [address] Type : ADM INOo Attending Dr: Cesar Gar MD Copies to: NON STAFF Cesar Gar MD W Jah Crowder, DO~ Cardiology HPI History of Present Illness Consult Date: 01/28/22 Reason for Consult: Atypical chest pain HPI: Mr. Antonio is a 71 year old male seen in interventional cardiology consultation at request of the hospitalist following an episode of atypical lateral chest wall/axillary sharp stabbing chest discomfort that occurred after a [place] mealat one of the local facilities. He got up from his table went to the restroom had significant shortness of breath and left lateral sharp chest discomfort thatwas constant. Eventually was relieved in the emergency room after 15 minutes ofpersistent discomfort. Patient has previous history of coronary revascularization approximately 5 [place]ago in [place] details of which are unknown. He has underlying hypertension, obesity, hyperlipidemia, obstructive sleep apnea, reactive airways disease. 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 He is currently stable, troponins arenegative. ECG reveals normal sinus rhythm with lateral T wave inversions that are unchanged from previous years. He follows routinely with [facility] tank wagon driver in [place], and appears to be on appropriate guideline directed medical therapies upon review of his EMR. There is no evidence of acute coronary syndrome at this time he does not warrantearly invasive management. He has not had stress testing for a number of years or post revascularization that he can recall. He is unable to exercise on a treadmill due to left hip and left knee osteoarthritis when asked if he can proceed with treadmill stress testing today. Recommendations: Follow-up with local tank wagon driver at [place], I would recommend stress perfusion imaging, continue current appropriate therapies. Patient be discharged this after Review of Systems Review of Systems All other systems reviewed & are negative unless noted below or in HPI Constitutional Constitutional: Reports as per HPI Eyes Eyes: Reports system reviewed and no additional complaints, except as documented ENT Ears, Nose, Mouth, and Throat: Reports system reviewed and no additional complaints, except as documented Cardiovascular Cardiovascular: Reports as per HPI and Reports chest pain at rest (Atypical leftlateral/rib cage/axillary) Respiratory Respiratory: Reports as per HPI and Reports dyspnea Gastrointestinal Gastrointestinal: Reports system reviewed and no additional complaints, except as documented Genitourinary Genitourinary: Reports system reviewed and no additional complaints, except as documented Musculoskeletal Musculoskeletal: Reports system reviewed and no additional complaints, except asdocumented Integumentary/Breasts Skin/Breast: Reports system reviewed and no additional complaints, except as documented Neurologic Neurologic: Reports system reviewed and no additional complaints, except as documented PMFSH Vaccinated for COVID-19?: No Medical History (Updated 01/27/22 @ 19:34 by Christine Stokes DO, RES) CAD (coronary artery disease) COPD (chronic obstructive pulmonary disease) Hiatal hernia HLD (hyperlipidemia) Hypertension JEAN PAUL on CPAP Surgical History H/O cardiac catheterization cath x6 stent x 1 H/O shoulder surgery H/O thumb surgery History of carpal tunnel surgery History of coronary artery stent placement Family History Father Lung cancer Other Diabetes HTN (hypertension) Social History Smoking Status: Current some day smoker Tobacco Type: cigars Substance Use Type: None Substance Abuse Comment: occac. Meds Medications and Allergies Allergies No Known Allergies Allergy (Verified 01/27/22 15:28) Home Medications albuterol sulfate 90 mcg/actuation aerosol inhaler (Ventolin HFA) 2 puff inhalation Q4-6H PRN Shortness Of Breath Or Wheezing 08/11/17 [History Confirmed 01/27/22] amlodipine 10 mg tablet (Norvasc) 10 mg PO DAILY 08/11/17 [History Confirmed 01/27/22] aspirin 81 mg tablet,delayed release (Aspir-) 81 mg PO DAILY 08/11/17 [History Confirmed 01/27/22] lisinopril 40 mg tablet 40 mg PO DAILY 08/11/17 [History Confirmed 01/27/22] albuterol sulfate 1.25 mg/3 mL solution for nebulization 1.25 mg continuous nebulization Q4H PRN Shortness Of Breath 07/11/20 [History Confirmed 01/27/22] carvedilol 12.5 mg tablet 25 mg PO BID 07/11/20 [History Confirmed 01/27/22] hydralazine 100 mg tablet 100 mg PO TID 07/11/20 [History Confirmed 01/27/22] atorvastatin 40 mg tablet 40 mg PO DAILY 01/27/22 [History Confirmed 01/27/22] clonidine HCl 0.2 mg tablet 0.2 mg PO BID 01/27/22 [History Confirmed 01/27/22] Exam Physical Exam Vital Signs: Temp Pulse Resp BP Pulse Ox O2 Del Method FiO2 97.8 F 62 20 162/76 H 96 Room Air 21 01/28/22 08:59 01/28/22 08:59 01/28/22 08:59 01/28/22 08:59 01/28/22 08:59 01/28/22 08:59 01/28/22 04:00 Const General: cooperative, comfortable and no acute distress Nutritional Appearance: obese Orientation: alert, awake and oriented x3 HEENT Head: normal to inspection Neck Neck: normal visual inspection Chest Chest palpation & inspection: normal inspection of the chest Resp Effort & Inspection: normal respiratory effort Auscultation: clear to auscultation bilaterally Cardio Palpation: normal PMI Rate: regular rate Rhythm: regular rhythm Heart Sounds: S1 normal, S2 normal and murmur systolic Pulses: radial pulses present GI Inspection: obesity Palpation: soft Skin General: no rashes or lesions noted Neuro General: patient alert, patient awake and patient oriented x3 Cognition: normal cognition Speech: speech normal Results Labs CBC & CMP: 01/28/22 07:24 01/28/22 07:24 Lab results: Cardiac Enzymes 01/27/22 01/27/22 Range/Units 15:10 15:10 Total Creatine Kinase 94 (22-269) U/L CK-MB (CK-2) 2.3 (0.6-6.3) ng/mL CK-MB (CK-2) Rel Index 2.4 (0.00-2.50) % B-Natriuretic Peptide 106.0 H (5-100) pg/mL Lipids 01/28/22 Range/Units 07:24 Triglycerides 185 H (35-149) mg/dL Cholesterol 122 L (140-200) mg/dL HDL Cholesterol 28 L (29-71) mg/dL Cholesterol/HDL Ratio 4.4 (<5.0) CBC 01/27/22 01/28/22 Range/Units 15:10 07:24 RBC 4.88 4.67 (3.90-5.60) x10E6/uL Hgb 14.1 13.8 (13.0-17.0) g/dL Hct 43.1 40.9 (38.8-50.0) % Plt Count 261 267 (150-450) x10E3/uL Neut # (Auto) 3.7 3.7 (1.8-7.7) x10E3/uL Lymph # (Auto) 1.1 1.1 (1.00-4.8) x10E3/uL [place] # (Auto) 0.5 0.6 (0.0-0.8) x10E3/uL Eos # (Auto) 0.3 0.3 (0.0-0.45) x10E3/uL Baso # (Auto) 0.0 0.0 (0.0-0.2) x10E3/uL Comprehensive Metabolic Panel 01/27/22 01/28/22 Range/Units 15:10 07:24 Sodium 141 140 (136-146) mmol/L Potassium 3.4 L 3.2 L (3.5-5.1) mmol/L Chloride 105 106 (95-114) mmol/L Carbon Dioxide 26.6 26.1 (22.0-30.0) mmol/L BUN 15 12 (9-23) mg/dL Creatinine 1.19 1.10 (0.64-1.27) mg/dL Glucose 174 H 127 H (70-100) mg/dL Calcium 9.3 8.6 (8.2-10.2) mg/dL Intake and Output 01/27/22 01/28/22 01/28/22 23:59 07:59 15:59 Intake Total 260 / 260 100 / 100 Balance 260 / 260 100 / 100 Intake: Oral 260 / 260 100 / 100 Other: # Voids 0 # Unmeasured Voids 1 1 Weight 124.2 kg Date of Last Bowel Movement 01/27/22 01/27/22 01/27/22 Patient Weight 01/28/22 23:59 Weight 124.2 kg Lab 01/27/22 15:10 PT 11.4 INR 1.0 APTT 29.4 EKG Interpretations EKG EKG results cardiology: sinus rhythm Blocks, axis, hypertrophy, ST abn Repolarization changes or abnormalities: nonspecific abnormality, ST segment, and/or T wave (Chronic lateral T wave inversions unchanged) A&P - Cardiology (1) Chest pain: Code(s): R07.9 - Chest pain, unspecified (2) JEAN PAUL on CPAP: Code(s): G47.33 - Obstructive sleep apnea (adult) (pediatric); Z99.89 - Dependence on other enabling machines and devices (3) HLD (hyperlipidemia): Code(s): E78.5 - Hyperlipidemia, unspecified (4) CAD (coronary artery disease): Code(s): I25.10 - Atherosclerotic heart disease of saxman coronary artery without angina pectoris (5) Hypertension: Code(s): I10 - Essential (primary) hypertension Documented By: Franklin Crowder DO 01/28/22 1146 Signed By: <Electronically signed by Franklin Crowder DO> 01/28/22 1158 [facility] Work Phone: 1(734) 238-571207-22-2022 Progress note Author Cesar [facility] January 28, 2022 3:27pm Note Date/Time January 28, 2022 10:4 8am [facility] [address] [place] [address] Hospitalist Progress Note Signed Patient: Keanu Antonio MR#: [id number] : 1950 Acct:[id number] Age/Sex: 71 / M Adm Date: 2 Loc: 3T Room: [address] [place] [address] Type : ADM INOo Attending Dr: Cesar Gar MD Copies to: ~ Date of Service: 01/28/2022 Subjective Subjective Narrative: Patient seen this morning resting in bed. Patient did not tolerate the hospitalCPAP mask, otherwise no events reported overnight. Patient denies any recurrence of chest pain, shortness of breath, or pain or tingling, or lightheadedness. Denies nausea, vomiting, or diaphoresis. Denies any new concerns. Exam Physical Exam Vital Signs: Temp Pulse Resp BP Pulse Ox O2 Del Method FiO2 97.8 F 62 20 162/76 H 96 Room Air 21 01/28/22 08:59 01/28/22 08:59 01/28/22 08:59 01/28/22 08:59 01/28/22 08:59 01/28/22 08:59 01/28/22 04:00 Narrative: GENERAL APPEARANCE: Alert and cooperative. In no acute distress HEAD: Normocephalic, atraumatic. EYES: Conjunctiva clear. THROAT: Mucous membranes pink and moist. CARDIAC: Normal rate. Regular rhythm. LUNGS: Clear to auscultation bilaterally. No accessory muscle use. No conversational dyspnea. Respirations non-labored. ABDOMEN: Normoactive bowel sounds. Soft, nondistended, nontender. No guarding, rebound, or rigidity. EXTREMITIES: No pitting edema. Capillary refill <2 seconds. NEUROLOGICAL: A&Ox3. Moves all extremities spontaneously with equal strength. SKIN: Warm and dry. PSYCHIATRIC: Mood and affect appropriate for situation. Answers questions appropriately. Objective Lab Results CBC & Chem 7: 01/28/22 07:24 01/28/22 07:24 Microbiology Results Microbiology 01/27/22 15:31 Nasal SARS Antigen (LFIA) - Final Meds Allergies and Active Meds Allergies No Known Allergies Allergy (Verified 01/27/22 15:28) Active Meds: Active Medications Generic Name Dose Route Start Last Admin Trade Name Freq PRN Reason Stop Dose Admin Acetaminophen 650 mg 01/27/22 18:42 Acetaminophen 325 Mg Tablet PO 01/27/23 18:41 Q6HR PRN Pain Scale 1 - 3 or fever Albuterol 1.25 mg 01/27/22 23:06 Albuterol Neb 2.5 Mg/3 Ml Vial.Neb INHALATION 01/27/23 23:05 Q4H PRN Shortness Of Breath Albuterol 2 puff 01/27/22 18:47 Albuterol Hfa 60 Puff/8 Gram Inhaler INHALATION 01/27/23 18:46 QID.RESP PRN Shortness Of Breath Or Wheezing Amlodipine Besylate 10 mg 01/28/22 09:00 01/28/22 08:52 Amlodipine 10 Mg Tablet PO 01/28/23 08:59 10 mg DAILY NAOMIE Administration Aspirin 81 mg 01/28/22 22:00 Aspirin 81 Mg Tablet.Dr PO 01/28/23 21:59 QHS NAOMIE Atorvastatin Calcium 40 mg 01/28/22 09:00 01/28/22 08:52 Atorvastatin 40 Mg Tablet PO 01/28/23 08:59 40 mg DAILY NAOMIE Administration Carvedilol 25 mg 01/27/22 21:00 01/28/22 08:52 Carvedilol 25 Mg Tablet PO 01/27/23 20:59 25 mg BID.WITH.MEALS NAOMIE Administration Clonidine HCl 0.2 mg 01/27/22 21:00 01/28/22 08:52 Clonidine 0.2 Mg Tablet PO 01/27/23 20:59 0.2 mg BID NAOMIE Administration Enoxaparin Sodium 40 mg 01/28/22 10:00 Enoxaparin 40 Mg/0.4 Ml Syringe SUBCUT 01/28/23 09:59 DAILY@10 NAOMIE Hydralazine HCl 10 mg 01/27/22 18:42 Hydralazine 20 Mg/Ml Vial IV-PUSH 01/27/23 18:41 Q4H PRN Hypertension Hydralazine HCl 100 mg 01/27/22 22:00 01/28/22 08:52 Hydralazine 50 Mg Tablet PO 01/27/23 21:59 100 mg TID NAOMIE Administration Lisinopril 40 mg 01/28/22 09:00 01/28/22 08:52 Lisinopril 40 Mg Tablet PO 01/28/23 08:59 40 mg DAILY NAOMIE Administration Morphine Sulfate 2 mg 01/27/22 18:42 Morphine Sulfate 2 Mg/Ml Vial IV-PUSH Q4H PRN Pain Scale 8 - 10 Ondansetron HCl 4 mg 01/27/22 18:42 Ondansetron 4 Mg/2 Ml Vial IV-PUSH 01/27/23 18:41 Q8H PRN Nausea And Vomiting Oxycodone HCl 5 mg 01/27/22 18:42 Oxycodone Ir 5 Mg Tablet PO Q6HR PRN Pain Scale 4 - 7 Potassium Chloride 40 meq 01/27/22 18:42 01/28/22 08:59 Potassium Chloride Er 20 Meq Tab.Er.Prt PO 01/27/23 18:41 40 meq DAILY PRN Administration Hypokalemia Sodium Chloride 0 ml 01/27/22 15:25 Sodium Chloride 0.9 % 10 Ml Syringe IV-PUSH 01/27/23 15:24 PRN PRN Flush A&P - Hospitalist Assessment/Plan (1) Chest pain: (2) CAD (coronary artery disease): (3) JEAN PAUL on CPAP: (4) HLD (hyperlipidemia): Plan 71-year-old male presenting with chest pain associated with tingling in his leftarm, shortness of breath, and lightheadedness. Symptoms resolved after approximately 10 minutes after administration of nitro by EMS. Brief recurrenceof symptoms for less than a minute in the ED. No recurrence of chest pain or associated symptoms since admission to the floor. Troponin very slightly elevated at 25 on arrival. Trended and remained relatively flat at 31. EKG with T wave inversions in V5 V6 which are not new compared to previous EKGs. Nodynamic changes on repeat EKG. Awaiting cardiology evaluation this morning Chest pain History of CAD with stent, hypertension, hyperlipidemia, obesity, occasional smoking -Telemetry -Cardiology consulted -Continue home antihypertensives -LDL 57, down from 124 in July of last year. A1c 5.6%. 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 Patient on appropriate guideline directed medical therapies and can continue current medications. Plan for discharge this afternoon I personally saw this patient on the day of the encounter, reviewed the history,performed the boggs elements of the exam and formulated the plan of care and confirmed the nurse practitioners/residents/manager internship written note. Documented By: Chirstine Stokes DO, RES 01/28/22 1039 Signed By: <Electronically signed by DO BRONSON Stokes> 01/28/22 1225 <Electronically signed by Cesar Gar MD> 01/28/22 5865 [facility] Work Phone: 1(886) 286-666307-21-2022 History and physical note Author Cesar Gar [facility] January 28, 2022 3:26pm Note Date/Time January 27, 2022 7:40 pm [facility] [address] [place] [address] Hospitalist H&P Signed Patient: Keanu Antonio MR#: [id number] : 1950 Acct:[id number] Age/Sex: 71 / M Adm Date: 2 Loc: Room: [address] [place] [address] Type : ADM INOo Attending Dr: Cesar Gar MD Copies to: NON STAFF MD Christine Christopher DO, RES~ HPI DATE OF EXAMINATION: 01/27/22 CHIEF COMPLAINT: Chest pain HISTORY OF PRESENT ILLNESS: Patient is a 8-year-old male with a history of CAD, status post 1 stent, COPD, HLD, hypertension, hiatal hernia, JEAN PAUL on CPAP who presented to the hospital withcomplaints of chest pain. States he was at a restaurant and had gone to the bathroom. States after he went to the bathroom he developed chest pain. Indicates pain on the left lateral aspect of his chest. Describes it as a sharpconstant 7 out of 10 pain. Sat down to see if if pain would resolve but states it persisted. Noted some numbness over his upper extremity from his shoulder tohis elbow during this time. Denied associated diaphoresis or nausea. States hefelt short of breath during this time. States he also felt a little lightheadedand fuzzy . Denies syncope. States it lasted about 10 minutes. Feels that the pain was starting to ease up slightly when siebel consultant arrived. Was given 4 baby aspirin and nitro by siebel consultant, after which the chest pain really improved. In the ER chest pain had reportedly resolved entirely. While talking to the patient hedid have a very brief episode where the chest pain recurred for less than a minute and was the same sharp left lateral chest pain. Pain is not reproducibleon palpation. Admits to occasional smoking usually cigars. States he has had chest pain in the past but today was different. States it is normally a dull ache over the left side of his chest. Its not usually a sharp pain and usually not as lateral. In the ER, patient has been hypertensive in the 160s to 190s systolic. Received1 dose of 20 mg IV hydralazine. Heart rates in the 50s and 60s. Afebrile. Saturating normally on room air. Troponin slightly elevated on arrival at 25. Repeat was 27. BNP 106. No leukocytosis or anemia. Potassium 3.4 otherwise normal electrolytes and renal function. EKG on arrival sinus rhythm with first-degree AV block, noted T wave inversions in V5 and V6. Similar T wave inversions present in July 2020. Repeat EKG unchanged. Review of Systems Review of Systems All other systems reviewed & are negative unless noted below or in HPI [facility] Vaccinated for [facility]-19?: No Medical History (Updated 01/27/22 @ 19:34 by Christine Stokes DO, RES) CAD (coronary artery disease) COPD (chronic obstructive pulmonary disease) Hiatal hernia HLD (hyperlipidemia) Hypertension JEAN PAUL on CPAP Surgical History H/O cardiac catheterization cath x6 stent x 1 H/O shoulder surgery H/O thumb surgery History of carpal tunnel surgery History of coronary artery stent placement Family History Father Lung cancer Other Diabetes HTN (hypertension) Social History Smoking Status: Current some day smoker Tobacco Type: cigars Substance Use Type: None Substance Abuse Comment: occac. Meds Medications and Allergies Allergies No Known Allergies Allergy (Verified 01/27/22 15:28) Home Medications albuterol sulfate 90 mcg/actuation aerosol inhaler (Ventolin HFA) 2 puff inhalation Q4-6H PRN Shortness Of Breath Or Wheezing 08/11/17 [History Confirmed 01/27/22] amlodipine 10 mg tablet (Norvasc) 10 mg PO DAILY 08/11/17 [History Confirmed 01/27/22] aspirin 81 mg tablet,delayed release (Aspir-) 81 mg PO DAILY 08/11/17 [History Confirmed 01/27/22] lisinopril 40 mg tablet 40 mg PO DAILY 08/11/17 [History Confirmed 01/27/22] albuterol sulfate 1.25 mg/3 mL solution for nebulization 1.25 mg continuous nebulization Q4H PRN Shortness Of Breath 07/11/20 [History Confirmed 01/27/22] carvedilol 12.5 mg tablet 25 mg PO BID 07/11/20 [History Confirmed 01/27/22] hydralazine 100 mg tablet 100 mg PO TID 07/11/20 [History Confirmed 01/27/22] atorvastatin 40 mg tablet 40 mg PO DAILY 01/27/22 [History Confirmed 01/27/22] clonidine HCl 0.2 mg tablet 0.2 mg PO BID 01/27/22 [History Confirmed 01/27/22] Exam Physical Exam Vital Signs: Temp Pulse Resp BP Pulse Ox O2 Del Method 97.9 F 86 18 187/83 H 95 Room Air 01/27/22 15:26 01/27/22 18:26 01/27/22 18:26 01/27/22 18:26 01/27/22 18:26 01/27/22 18:26 Narrative: GENERAL APPEARANCE: Alert and cooperative. In no acute distress HEAD: Normocephalic, atraumatic. EYES: PERRL, EOMI. Conjunctiva clear. THROAT: Oropharynx clear. Mucous membranes pink and moist. NECK: Trachea midline. CARDIAC: Normal rate. Regular rhythm. No murmurs appreciated. LUNGS: Clear to auscultation bilaterally. No accessory muscle use. No conversational dyspnea. Respirations non-labored. ABDOMEN: Normoactive bowel sounds. Soft, nondistended, nontender. No guarding, rebound, or rigidity. : No CVA tenderness. EXTREMITIES: No pitting edema. No cyanosis. Capillary refill <2 seconds. NEUROLOGICAL: A&Ox3. Moves all extremities spontaneously with equal strength. Sensation grossly intact and symmetric. SKIN: Warm and dry. PSYCHIATRIC: Mood and affect appropriate for situation. Answers questions appropriately. Results Lab Results Labs: Laboratory Last Values Corrected WBC 5.6 X10E3/uL (4.1-10.5) 01/27/22 15:10 Uncorrected WBC Count 5.6 x10E3/uL (4.5-11.0) 01/27/22 15:10 RBC 4.88 x10E6/uL (3.90-5.60) 01/27/22 15:10 Hgb 14.1 g/dL (13.0-17.0) 01/27/22 15:10 Hct 43.1 % (38.8-50.0) 01/27/22 15:10 MCV 88.4 fl (83.5-101) 01/27/22 15:10 MCH 29.0 pg (27.5-35.2) 01/27/22 15:10 MCHC 32.8 g/dL (32.5-35.6) 01/27/22 15:10 RDW 14.4 % (12.0-14.8) 01/27/22 15:10 Plt Count 261 x10E3/uL (150-450) 01/27/22 15:10 MPV 8.4 fl (6.6-10.1) 01/27/22 15:10 Neut % (Auto) 66.0 % (.) 01/27/22 15:10 Lymph % (Auto) 19.1 % (.) 01/27/22 15:10 [place] % (Auto) 9.5 % (.) 01/27/22 15:10 Eos % (Auto) 4.6 % (.) 01/27/22 15:10 Baso % (Auto) 0.8 % (.) 01/27/22 15:10 Neut # (Auto) 3.7 x10E3/uL (1.8-7.7) 01/27/22 15:10 Lymph # (Auto) 1.1 x10E3/uL (1.00-4.8) 01/27/22 15:10 [place] # (Auto) 0.5 x10E3/uL (0.0-0.8) 01/27/22 15:10 Eos # (Auto) 0.3 x10E3/uL (0.0-0.45) 01/27/22 15:10 Baso # (Auto) 0.0 x10E3/uL (0.0-0.2) 01/27/22 15:10 Nucleated RBC % (auto) 0.0 % (0-0.5) 01/27/22 15:10 PT 11.4 Seconds (9.0-12.9) 01/27/22 15:10 INR 1.0 01/27/22 15:10 APTT 29.4 Seconds (25.1-36.5) 01/27/22 15:10 PHA Creatinine Clear 69.61 01/27/22 15:10 Sodium 141 mmol/L (136-146) 01/27/22 15:10 Potassium 3.4 mmol/L (3.5-5.1) L 01/27/22 15:10 Chloride 105 mmol/L (95-114) 01/27/22 15:10 Carbon Dioxide 26.6 mmol/L (22.0-30.0) 01/27/22 15:10 BUN 15 mg/dL (9-23) 01/27/22 15:10 Creatinine 1.19 mg/dL (0.64-1.27) 01/27/22 15:10 Est GFR ( Amer) > 60 mL/Min 01/27/22 15:10 Est GFR (Non-Af Amer) 60 mL/Min 01/27/22 15:10 Glucose 174 mg/dL (70-100) H 01/27/22 15:10 Calcium 9.3 mg/dL (8.2-10.2) 01/27/22 15:10 Total Creatine Kinase 94 U/L (22-269) 01/27/22 15:10 CK-MB (CK-2) 2.3 ng/mL (0.6-6.3) 01/27/22 15:10 CK-MB (CK-2) Rel Index 2.4 % (0.00-2.50) 01/27/22 15:10 Troponin I High Sens 27 pg/mL (0-20) H 01/27/22 17:40 B-Natriuretic Peptide 106.0 pg/mL (5-100) H 01/27/22 15:10 COVID-19 PCR Interp N/A 01/27/22 16:31 SARS Antigen (LFIA) Negative (Negative) 01/27/22 15:31 Microbiology Results Micro: Microbiology - Results from entire visit 01/27/22 15:31 Nasal SARS Antigen (LFIA) - Final A&P - Hospitalist Assessment/Plan (1) Chest pain: (2) CAD (coronary artery disease): (3) JEAN PAUL on CPAP: (4) HLD (hyperlipidemia): Plan 71-year-old male presenting with chest pain associated with tingling in his leftarm, shortness of breath, and lightheadedness. Symptoms resolved after approximately 10 minutes after administration of nitro by EMS. Brief recurrenceof symptoms for less than a minute in the ED. Otherwise symptoms have resolved at this time. Somewhat atypical chest pain sharp and lateral in nature but patient does have cardiac risk factors with history of previous stent placement. Troponin very slightly elevated at 25 and 27. EKG with T wave inversions in V5V6 which are not new compared to previous EKGs. No dynamic changes on repeat EKG. Patient admitted for further evaluation of chest pain. Chest pain History of CAD with stent, hypertension, hyperlipidemia, obesity, occasional smoking -Telemetry -Trend troponins -Cardiology consulted -Dose of hydralazine given once in ED, restart home antihypertensives -Check lipid panel, A1c -Daily aspirin, restart home statin Hypokalemia -Replaced, recheck BMP in a.m., check magnesium COPD -Albuterol as needed JEAN PAUL on CPAP -CPAP at night I personally saw this patient on the day of the encounter, reviewed the history,performed the boggs elements of the exam and formulated the plan of care and confirmed the nurse practitioners/residents/manager internship written note. Documented By: Christine Stokes DO, RES 01/27/221922 Signed By: <Electronically signed by DO BRONSON Stokes> 01/27/221944 <Electronically signed by Cesar Gar MD> 01/28/22 1528 [facility] Work Phone: [phone]) [phone] Evaluation note* Encounter Date Diagnosis Assessment Notes Treatment Notes Treatment Clinical Notes Jan, Obstructive sleep apnea (ICD-10 - G47.33) Fortunately, the patient is using and benefiting from treatment. Download was reviewed with patient, Current pressure is controlling apnea well, And we will make no changes at this time. He does have a significant leak, but pt denies any discomfort and apnea is well controlled so we will not pursue any actions currently. He does switch his supplies out regularly. Discussed likely that his facial hair could be preventing a good fit, or he may need a new mask style. He will pursue options in the future if he experiences any worsening discomfort. A prescription was sent to the [employer] [facility] for new supplies throughout the year. He was encouraged to continue to use his machine nightly, throughout the entire night and for naps as this does provide clinical benefit. He will follow-up in the sleep clinic in 1 year or sooner if problems. Jan, Essential hypertension (ICD-10 - I10) Patient's BP is elevated today. 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 He is asymptomatic. The positive effects of controlled JEAN PAUL and hypertension were reviewed. He continues to follow with PCP for BP mgmt. Recommended pt continue with lifestyle modifications. We will continue to monitor. Jan, BMI 40.0-44.9, adult (ICD-10 - Z68.41) Patient's weight has decreased since last visit. The positive effects of weight loss on JEAN PAUL were reviewed. He was advised to follow diet modification and increase activity. We will continue to monitor. Jan, Other Call if any questions or problems. For Sleep Apnea: Patient is advised to work on healthy diet choices and appropriate servings, weight control, regular exercise as directed, and reduce fat intake. Use machine regularly, and keep up with mask changes as needed. Call if problems with mask toleration, increased sleepiness, or poor response to treatment. Take medication as prescribed, keep follow up appointments, get any testing that's been ordered in a timely fashion. Do not smoke the positive effects of weight Loss on JEAN PAUL were reviewed [employer] Other 11-13-2021 Hospital Discharge instructions* Instructions* Charlotte Coleman MD - 05/22/2021 Continue current medications as prescribed. Follow-up with your primary care provider within 1 weekfor recheck. Call your tank wagon driver the morning to schedule the earliest available appointment. Return immediately if you develop any worsening symptoms shortness of breath or any other acute concerns. * Attachments The following attachments cannot be sent through Care Everywhere. * Chest Pain: Musculoskeletal (Cameroonian) documented in this [facility] [employer] Work Phone: evaluation note* Diagnosis Strain of rhomboid muscle, initial encounter- Primary Acute pain of left shoulder History of coronary artery stent placement History of hypertension Personal history of other diseases of circulatory system documented in this encounter [employer] Phone: evaluation note* Diagnosis Atypical chest pain- Primary Other chest pain documented in this encounter [employer] Phone: evaluation note* Diagnosis Onset Date Resolution Status CAD (coronary artery disease) acute Chest pain acute HLD (hyperlipidemia) acute JEAN PAUL on CPAP [facility] Work Phone: Evaluation note* Diagnosis Onset Date Resolution Status CAD (coronary artery disease) acute Chest pain acute HLD (hyperlipidemia) acute Hypertension acute JEAN PAUL on CPAP [facility] Work Phone: Evaluation note* Diagnosis URI, acute Acute upper respiratory infections of unspecified site documented in this encounter [employer] Phone: evaluation note* Diagnosis Acute pain of right knee Primary osteoarthritis of right knee Primary localized osteoarthrosis, lower leg documented in this encounter [employer] Phone: evaluation note* Diagnosis Musculoskeletal pain of left thigh Screening, anemia, deficiency, iron Screening for iron deficiency anemia Screening for diabetes mellitus BMI 40.0-44.9, adult (HCC) Body Mass Index 40.0-44.9, adult Vitamin D deficiency Unspecified vitamin D deficiency Screening for thyroid disorder Prediabetes Other abnormal glucose Myalgia Mylagia and myositis, unspecified documented in this encounter [employer] Phone: evaluation note* Diagnosis Musculoskeletal pain of left thigh Myalgia Mylagia and myositis, unspecified documented in this encounter [employer] Phone: evaluation note* Diagnosis Musculoskeletal pain of left thigh Myalgia Mylagia and myositis, unspecified Abnormal x-ray of femur documented in this encounter [employer] Phone: evaluation note* Diagnosis Acute pain of left thigh Enthesopathy Enthesopathy of unspecified site Ankylosing spondylitis lumbar region (HCC) documented in this encounter [facility] [employer] Work Phone: evaluation note* Diagnosis Lumbar radiculopathy Thoracic or lumbosacral neuritis or radiculitis, unspecified documented in this encounter [facility] [employer] Work Phone: evaluation note* Diagnosis Chest pain, unspecified type- Primary [facility] Diagnosis Lower abdominal pain Abdominal pain, other specified site Abdominal cramps Abdominal pain, unspecified site documented in this encounter [facility] [employer]* Diagnosis Urinary frequency Lower abdominal pain Abdominal pain, other specified site documented in this encounter [facility] [employer]* Diagnosis Onset Date Resolution Status COPD (chronic obstructive pulmonary disease) acute Hypertension acute 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 JEAN PAUL on CPAP [facility] Work Phone: Evaluation note* Diagnosis Essential hypertension- Primary Unspecified essential hypertension Near syncope Syncope and collapse Encounter for screening colonoscopy Special screening for malignant neoplasms, colon documented in this encounter [facility] [employer] [facility] [place] [facility]* Diagnosis Colon cancer screening Special screening for malignant neoplasms, colon documented in this encounter [facility] [place] [facility]* Diagnosis Chronic pain of right ankle documented in this encounter [facility] [place] [facility]* Diagnosis Prostate cancer screening Special screening for malignant neoplasm of prostate Primary hypertension Unspecified essential hypertension Urinary frequency Urinary dribbling Post-void dribbling documented in this encounter [facility] general Narrative - Reported* Type Description Date Medical History COPD Medical History hypertension Medical History high cholesterol Medical History JEAN PAUL Medical History Obstructive sleep apnea Medical History COPD (chronic obstructive pulmon rachel disease) Medical History BMI 40.0-44.9, adult Medical History Hypertension [employer] Other Hospital Discharge instructions* Attachments The following attachments cannot be sent through Care Everywhere. * Musculoskeletal Pain (Cameroonian) [facility] Discharge [facility]* Attachments The following attachments cannot be sent through Care Everywhere. * Chest [facility] (Cameroonian) [facility] Purpose Family History No Family History Records Found Relationship Condition Age at Onset Recorded Date/T theresa Not Specified Diabetes mellitus Unknown Hypertension Unknown father Malignant neoplasm of lung Unknown Relationship Condition Age at Onset Recorded Date/T theresa father Malignant neoplasm of lung Unknown aunt Diabetes mellitus Unknown brother Hypertension Unknown mother Hypertension Unknown sister Hypertension Unknown Advance Directives No Advanced Directives Records FoundDocuments on File Type Date Recorded 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 Advance Directives and Living Will Power of Paper Stacker Latest Code Status on File Code Status Date Activated Date Inactivated Comments Full Code 08/27/2019 1:18 AM Full Code 08/01/2017 8:17 AM 08/01/2017 4:43 PM Full Code 08/01/2017 7:25 AM 08/01/2017 8:17 AM Full Code 07/30/2017 9:18 PM 08/01/2017 7:25 AM Full Code 11/16/2012 1:53 PM 11/17/2012 1:04 PM Latest Code Status on File Code Status Date Activated Date Inactivated Comments Full Code 08/27/2019 1:18 AM 08/28/2019 1:34 PM Documents on File Type Date Recorded 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 ACP-Advance Directive ACP-Power of Paper Stacker Advance Directive Response Recorded Date/ Time Advance Directives No November 16 8 1:40pm Healthcare Agents on File Name Relationship Healthcare Agent Relationshi p Communication Trista Antonio Spouse Primary Decision Maker [phone] (Home) Healthcare Agents on File Name Relationship Healthcare Agent Relationshi p Communication Trista Antonio Spouse Primary Decision Maker [phone] (Home) Healthcare Agents on File Name Relationship Healthcare Agent Relationshi p Communication Trista Antonio Spouse Primary Decision Maker [phone] (Home) Healthcare Agents on File Name Relationship Healthcare Agent Relationshi p Communication Trista Antonio Spouse Primary Decision Maker Healthcare Agents on File Name Relationship Healthcare Agent Relationshi p Communication Trista Antonio Spouse Primary Decision Maker Healthcare Agents on File Name Relationship Healthcare Agent Relationshi p Communication Trista Antonio Spouse Primary Decision Maker Latest Code Status on File Code Status Date Activated Date Inactivated Comments Full Code 08/27/2019 1:18 AM 08/28/2019 1:34 PM Full Code 08/01/2017 8:17 AM 08/01/2017 4:43 PM Full Code 08/01/2017 7:25 AM 08/01/2017 8:17 AM Full Code 07/30/2017 9:18 PM 08/01/2017 7:25 AM Full Code 11/16/2012 1:53 PM 11/17/2012 1:04 PM Healthcare Agents on File Name Relationship Healthcare Agent Relationshi p Communication Trista Antonio Spouse Primary Decision Maker Latest Code Status on File Code Status Date Activated Date Inactivated Comments Full Code 08/27/2019 1:18 AM 08/28/2019 1:34 PM Code Status History Code Status Date Activated Date Inactivated Comments Full Code 08/01/2017 8:17 AM 08/01/2017 4:43 PM Full Code 08/01/2017 7:25 AM 08/01/2017 8:17 AM Full Code 07/30/2017 9:18 PM 08/01/2017 7:25 AM Full Code 11/16/2012 1:53 PM 11/17/2012 1:04 PM Healthcare Agents on File Name Relationship Healthcare Agent Relationshi p Communication Trista Antonio Spouse Primary Decision Maker Healthcare Agents on File Name Relationship Healthcare Agent Relationshi p Communication Trista Antonio Spouse Primary Decision Maker Healthcare Agents on File Name Relationship Healthcare Agent Relationshi p Communication Trista Antonio Spouse Primary Decision Maker Healthcare Agents on File Name Relationship Healthcare Agent Relationshi p Communication Trista Antonio Spouse Primary Decision Maker Date Activated Date Inactivated Comments 08/27/2019 1:18 AM 08/28/2019 1:34 PM Date Activated Date Inactivated Comments 08/01/2017 8:17 AM 08/01/2017 4:43 PM Date Activated Date Inactivated Comments 08/01/2017 7:25 AM 08/01/2017 8:17 AM Date Activated Date Inactivated Comments 07/30/2017 9:18 PM 08/01/2017 7:25 AM Date Activated Date Inactivated Comments 11/16/2012 1:53 PM 11/17/2012 1:04 PM Healthcare Agents on File Name Relationship Healthcare Agent Relationshi p Communication Trista Antonio Spouse Primary Decision Maker Date Activated Date Inactivated Comments 08/27/2019 1:18 AM 08/28/2019 1:34 PM Date Activated Date Inactivated Comments 08/01/2017 8:17 AM 08/01/2017 4:43 PM Date Activated Date Inactivated Comments 08/01/2017 7:25 AM 08/01/2017 8:17 AM Date Activated Date Inactivated Comments 07/30/2017 9:18 PM 08/01/2017 7:25 AM Date Activated Date Inactivated Comments 11/16/2012 1:53 PM 11/17/2012 1:04 PM Healthcare Agents on File Name Relationship Healthcare Agent Relationshi p Communication Trista Antonio Spouse Primary Decision Maker [phone] (Home) Healthcare Agents on File Name Relationship Healthcare Agent Relationshi p Communication Trista Antonio Spouse Primary Decision Maker [address] [place] [phone] (Home) Healthcare Agents on File Name Relationship Healthcare Agent Relationshi p Communication Trista Antonio Spouse Primary Decision Maker [address] [phone] (Home) Healthcare Agents on File Name Relationship Healthcare Agent Relationshi p Communication Trista Antonio Spouse Primary Decision Maker [phone] (Home) Healthcare Agents on File Name Relationship Healthcare Agent Relationshi p Communication Trista Antonio Spouse Primary Decision Maker [phone] (Home) Healthcare Agents on File Name Relationship Healthcare Agent Relationshi p Communication Trista Antonio Spouse Primary Decision Maker [phone] (Home) Hospital Course * Abran Henriquez MD - 08/28/2019 9:03 AM EST Hospitalist Discharge Summary Patient: Keanu Antonio Date of : 1950 Acct: [id number] Primary Care Physician: Jordan Harden Jr Admit date: 08/26/2019 Discharge date: 08/28/2019 Discharge Diagnoses: COPD exacerbation (HCC) Acute bronchitis Accelerated hypertension Hypokalemia History of coronary artery disease, status post circumflex stent in January 2018 History of cataplexy and narcolepsy Obstructive sleep apnea, compliant with CPAP Morbid obesity with BMI 44 Discharge Medications: Keanu Antonio Home Medication Instructions RISHABH:[id number] Printed on:08/28/19 0903 Medication Information albuterol (PROVENTIL) (2.5 MG/3ML) 0.083% nebulizer solution Take 3 mLs by nebulization every 4 hours as needed for Wheezing albuterol sulfate HFA 108 (90 Base) MCG/ACT inhaler Inhale 2 puffs into the lungs 2 times daily as needed for Wheezing or Shortness of Breath amLODIPine (NORVASC) 10 MG tablet Take 10 mg by mouth daily aspirin EC 81 MG EC tablet Take 81 mg by mouth daily. azithromycin (ZITHROMAX) 500 MG tablet Take 1 tablet by mouth daily for 3 days carvedilol (COREG) 12.5 MG tablet Take 12.5 mg by mouth 2 times daily (with meals) cloNIDine (CATAPRES) 0.1 MG tablet Take 1 tablet by mouth 2 times daily hydrALAZINE (APRESOLINE) 100 MG tablet Take 1 tablet by mouth 3 times daily. lisinopril (PRINIVIL;ZESTRIL) 40 MG tablet Take 1 tablet by mouth daily nitroGLYCERIN (NITROSTAT) 0.[address] 1 tablet under the tongue every 5 minutes as needed. prasugrel (EFFIENT) 10 MG TABS Take 10 mg by mouth daily predniSONE (DELTASONE) 20 MG tablet Take 1 tablet by mouth daily for 5 days Diet: DIET CARDIAC; Activity: Activity as tolerated Follow-up: in 1 weeks with Jordan Harden Jr Physical Exam: Vitals: Patient Vitals for the past 24 hrs: BP Temp Temp src Pulse Resp SpO2 Weight 08/28/19 0800 (!) 155/86 98.3 F (36.8 C) Oral 60 18 95 % 08/28/19 0537 95 % 08/28/19 0419 (!) 158/76 97.7 F (36.5 C) Oral 65 18 93 % 258 lb 12.8 oz (117.4 kg) 08/27/19 2307 (!) 161/85 97.6 F (36.4 C) Oral 18 94 % 08/27/19 2117 94 % 08/27/192004 (!) 145/78 98.4 F (36.9 C) Oral 68 18 93 % 08/27/19 1651 92 % 08/27/19 1600 (!) 152/71 98 F (36.7 C) Oral 78 18 94 % 08/27/19 1415 (!) 148/69 72 18 08/27/19 1254 18 93 % 08/27/19 1200 (!) 149/112 98.4 F (36.9 C) Oral 79 18 95 % 08/27/19 0925 18 96 % 08/27/19 0908 18 97 % General Appearance: alert and oriented to person, place and time, in no acute distress Cardiovascular: normal rate, regular rhythm, normal S1 and S2, no murmurs, rubs, clicks, or gallops, distal pulses intact Pulmonary/Chest: clear to auscultation bilaterally, no wheezes, rales or rhonchi, diminished breathsounds Abdomen: Obese, soft, non-tender, non-distended, normal bowel sounds, no masses Extremities: no cyanosis, clubbing or edema Skin: warm and dry, no rash or erythema Neurological: alert, oriented, normal speech, no focal findings or movement disorder noted Hospital Course: The patient is a 69 y.o. male presented to the emergency room complaining of shortness of breath and wheezing for 1 day duration. The symptoms progressively became worse. States wheezing and shortness of breath was constant, severe, he was unable to catch his breath. He reported no associated chest pain or cough. He had no fevers, no chills. He does have a history of COPD and occasionally smokes cigars. States his nebulizer machine has been broken for quite some time. He also ran out of his albuterol inhaler. The patient also reports having elevated blood pressure at home. States it is difficult to control. Patient's work-up in the emergency room revealed elevated blood pressure 186/86, heart rate was 70,respirations 16. He was saturating 93% on room air. His blood pressure went up in ER to 213/84. He was treated with IV hydralazine and came down to 160/66. BMP revealed sodium 141, potassium 3.6, normal renal function, troponin less than 0.03, proBNP was 480, LFTs normal, CBC normal. Chest x-ray showed bilateral peribronchial thickening suggestive of bronchitis, early/developing infiltrates cannot be excluded. No focal consolidation was seen. He was treated with nebulizers, continue to be symptomatic and for this reason was deemed appropriate for admission and treatment of COPD exacerbation and accelerated HTN He was treated for COPD exacerbation and acute bronchitis with frequent nebulizer treatments, Levaquin, IV steroids. He was started on clonidine 0.1 mg twice daily for better blood pressure control. He is significantly improved, feels less short of breath, has no wheezing. His examination is also un remarkable. His vitals are stable, oxygen saturation is 95% on room air. He tolerates diet and activities. We will discharge him home today. We did order nebulizer machine and albuterol inhaler and nebulizer for him to use at home. A prescription for Zithromax 500 mg daily for 3 days, prednisone 20mg daily for 5 days is sent. He is advised to follow-up with PCP preferably in 1 week. Disposition: home Condition: Stable Time Spent: 32 minutes Discharging Hospitalist documented in this encounter Discharge Instructions * Discharge Instr - Diet* Noreen Hernandez RN - 08/28/2019 9:28 AM EST ? Good nutrition is important when healing from an illness, injury, or surgery. Follow any nutrition recommendations given to you during your hospital stay. ? If you were given an oral nutrition supplement while in the hospital, continue to take this supplement at home. You can take it with meals, in-between meals, and/or before bedtime. These supplements can be purchased at most local grocery stores, pharmacies, and chain [employer]-stores. ? If you have any questions about your diet or nutrition, call the hospital and ask for the dietitian. documented in this encounter* Attachments The following attachments cannot be sent through Care Everywhere. * Pneumonia (Cameroonian) documented in this encounter History of Present Illness * Destiney Salmon LSW - 08/28/2019 9:25 AM EST Acknowledge pt discharge to home today with spouse via private vehicle. 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 No further discharge needs or concerns at this time. JAYLYN Kenyon 08/28/2019 * Radha Sheppard, RD, LD - 08/28/2019 8:44 AM EST Nutrition Assessment Type and Reason for Visit: Initial Nutrition Recommendations: 1. Continue current diet. 2. Encouraged low sodium diet. Nutrition Assessment: Altered nutrition related lab values r/t cardiac dysfunction aeb BNP 1650. Ptstates he does not add salt to his food, they cook from scratch for the most part. UBW 250#. On steroid therapy, glucose is 172. Encouraged low sodium diet. Malnutrition Assessment: Malnutrition Status: No malnutrition Context: Acute illness or injury Findings of the 6 clinical characteristics of malnutrition (Minimum of 2 out of 6 clinical characteristics is required to make the diagnosis of moderate or severe Protein Calorie Malnutrition based on AND/ASPEN Guidelines): 1. Energy Intake-Greater than 75% of estimated energy requirement, 2. Weight Loss-No significant weight loss, 3. Fat Loss-No significant subcutaneous fat loss, 4. Muscle Loss-No significant muscle mass loss, 5. Fluid Accumulation-Mild fluid accumulation, Extremities(+ 1 non pitting R/L UE, non pitting R/L LE) 6. Billboard Mechanic Strength-Not measured Nutrition Risk Level: Low, Moderate Nutrition Diagnosis: Problem: Altered nutrition-related lab values Etiology: related to Cardiac dysfunction ? Signs and symptoms: as evidenced by Lab values(BNP 1650) Objective Information: Nutrition-Focused Physical Findings: appears well nourished Wound Type: None Current Nutrition Therapies: Oral Diet Orders: Cardiac Oral Diet intake: 76-100% Oral Nutrition Supplement (ONS) Orders: None Anthropometric Measures: Ht: 5' 4 (162.6 cm) Current Body Wt: 258 lb 12.8 oz (117.4 kg) Admission Body Wt: 261 lb 12.8 oz (118.8 kg) Usual Body Wt: 250 lb (113.4 kg) % Weight Change: , 8# gain x 1 month [place] Body Wt: 130 lb (59 kg), % [place] Body 199% BMI Classification: BMI > or equal to 40.0 Obese Class III Recent Labs 08/26/19 2254 08/27/19 0234 08/28/19 0545 NA 142 143 142 K 3.6* 3.6* 4.0 CL 106 107 107 CO2 24 21 22 BUN 18 16 21 CREATININE 1.27* 1.11 1.18 GLUCOSE 123* 160* 172* ALT 28 -- -- ALKPHOS 56 -- -- GFR NOT REPORTED NOT REPORTED NOT REPORTED Lab Results Component Value Date LABALBU 3.8 08/26/2019 LABALBU 4.5 07/23/2011 Nutrition Interventions: Continue current diet Continued Inpatient Monitoring, Education declined, Coordination of Care Nutrition Evaluation: Evaluation: Goals set Goals: PO > 75% of meals Monitoring: Meal Intake, I&O, Weight, Pertinent Labs, Patient/Family Education Contact Number: [phone] * Nancy Rogers RCP - 08/28/2019 5:35 AM EST RT in to give breathing tx. PT stated that he did not need a breathing tx at this time. RT will continue to monitor pt. SpO2 95% on RA * Marcy Perales OT - 08/27/2019 2:38 PM EST Therapy Dog Program Pt agreeable to visit from therapy dogKehinde. Pt visits w/ Kehinde in pt's room. Pt's hands are sanitized prior to & after interaction w/ therapy dog. TALHA Boyd, OTR/L * Noemy Rodriguez RN - 08/27/2019 11:59 AM EST PALLIATIVE CARE Spoke with patients at bedside. States that he has a living will and power of seismograph helper at home. She is listed as his first contact. Chart updated with her information. Copy requested from at this time. Patient wishes to remain a full code. Denies further needs. Will continue to follow andsupport. Noemy Rodriguez RN [facility] [place] Palliative Care Nurse Coordinator 08/27/2019 12:01 PM * Destiney Salmon LSW - 08/27/2019 11:51 AM EST SW met with pt to complete assessment during quality rounds. Spouse entered the room at the end of our conversation. Pt is alert and oriented and very talkative. Pt is a 69 year old male admitted for COPD exacerbation. Pt lives with his spouse and a few pets. Pt was not utilizing any services prior to admission. Pt reports that he does the cooking at home. Pt was not using any DME to ambulate with prior to admission either. Pt states that he needs a new nebulizer machine and inhaler andhas spoke with the Dr about this. Pt drives and is able to get himself to appointments. Pt is a full code and follows with Dr Harden at [facility] in [place] as his PCP. Pt is uncertain if he has advance directives currently and states that palliative care nurse was coming back to speak with them about these when his spouse arrives. Pt reports that he is able to obtain his medications without any concerns. Pt plans to return home with spouse at discharge. Pt is a and tells about all of the placeshe has been in his life and places to stop and see when traveling. Pt identifies no other dischargeconcerns at this time, other than his nebulizer being replaced. SW will continue to follow and remain available as needed. JAYLYN Kenyon 08/27/2019 * Noemy Rodriguez RN - 08/27/2019 10:30 AM EST Palliative Care Notes Reason for Consult: AD discussion and chronic disease support Patient Active Problem List Diagnosis Syncope Hypertension Sinusitis, chronic CAD (coronary artery disease) Hyperlipidemia Panic attack Acute prostatitis Abdominal pain, suprapubic Chest pain Cataplexy COPD exacerbation (HCC) Advance Directives: Code status: Full Code Patient has capacity for medical decisions: yes Health Care Power of Paper Stacker: no Living Will: no Pain Management: The patient is not having any pain. Symptom Management: Are there any other symptoms that are distressing to the patient or family thatneeds addressed? Anxiety: none Dyspnea: acute dyspnea Fatigue: exercise intolerance Bladder function: weak stream Bowel function: none Other: None Spiritual history/needs: Low Vision Therapist notified: yes Palliative Performance Scale: ___70% Ambulation reduced; Some disease; Can't do normal job or work; intake normal or reduced; pavithra full self care; LOC full ___60% Ambulation reduced; Significant disease; Can't do hobbies/housework; intake normal or reduced; occasional assist; LOC full/confusion ___50% Mainly sit/lie; Extensive disease; Can't do any work; Considerable assist; intake normal or reduced; LOC full/confusion ___40% Mainly in bed; Extensive disease; Mainly assist; intake normal or reduced; LOC full/confusion ___30% Bed Bound; Extensive disease; Total care; intake reduced; LOC full/confusion ___20% Bed Bound; Extensive disease; Total care; intake minimal; Drowsy/coma ___10% Bed Bound; Extensive disease; Total care; Mouth care only; Drowsy/coma ___0 Readmission Risk: 11% Notes: Keanu is resting in bed for our visit. He presented to the emergency department with increasing SOB. He has a history of COPD, CAD, and syncope. Keanu lives at home with his . He has 4 grown children that are an assistance if he needs them. He is retired, manages his own medications and will occasionally drive only if I have to. Otherwise my does all of the driving. He assists with cooking and cleaning when he is feeling well enough to do so. He is independent with his ADL's at home and has a cane. States that he and his wifehave discussed getting a walker as it would be more support for him. He reminisces about his time in the . States that he was in the [employer]. Thanked for his service. Discussed with pastoral care as patient has not been pinned by our facility. His PCP manages his COPD. States that he had a nebulizer and in hailer at home. The inhaler outdated and the nebulizer is no longer functioning properly. States that he spoke with DR Parry about it this morning and she will be ordering him a new one at discharge. He follows up with cardiology in [place] every 6 months. He had a stent placed a year and a half ago. We discuss advanced directives. He is unsure at this time if he has them. Requests that we speak with his when she comes in . Denies further concerns at this time. Will continue to follow and support. Palliative Care Plan: Education/support to patient Continue with current plan of care Code status clarified: Full Code Palliative Care Goals: live longer, improve or maintain function/quality of life, remain at home, strengthening relationships and preserve independence/autonomy/control Visit focus: Routine meeting Discuss goals of care Listen to patient/family concerns Build trust Noemy Rodriguez RN [facility] [place] [facility] Nurse Coordinator 08/27/2019 11:58 AM * Mila Méndez RCP - 08/27/2019 9:26 AM EST Patient placed on RA. Will continue to monitor closely. * Tierra Sauceda RN - 08/27/2019 12:05 AM EST Pt attempting to void via urinal - urinal spilled - complete linen change and pt placed in gown. documented in this encounter Assessments Diagnosis COPD exacerbation (HCC)- Primary Obstructive chronic bronchitis with exacerbation Hypertensive urgency Unspecified essential hypertension Diagnosis Bronchopneumonia- Primary Bronchopneumonia, organism unspecified Shortness of breath Diagnosis ACS (acute coronary syndrome) (HCC)- Primary Intermediate coronary syndrome Hypertensive urgency Unspecified essential hypertension Chief Complaint and Reason for Visit Chief Complaint Sleep apnea annual f ollow up chest pain Reason for Visit CAD (coronary artery disease) Chest pain HLD (hyperlipidemia) JEAN PAUL on CPAP Chief Complaint Sleep apnea annual f ollow up chest pain Reason for Visit CAD (coronary artery disease) Chest pain HLD (hyperlipidemia) Hypertension JEAN PAUL on CPAP Chief Complaint JEAN PAUL/ANNUAL Reason for Visit COPD (chronic obstru ctive pulmonary disease) Hypertension Idiopathic sleep related nonobstructive alveolar hypoventilation JEAN PAUL on CPAP Reason for Referral Specialty Diagnoses / Procedures Referred By Bita zhou Referred To Contact Procedures ECG Ramsey Rodríguez MD [address] [place] [address] Referral ID Status Reason Start Date Expiration Date V isits Requested Visits Authorized [id number] New Request 02/02/2023 02/27/2024 1 1 Specialty Diagnoses / Procedures Referred By Bita zhou Referred To Contact Radiology Diagnoses Musculoskeletal pain of left thigh Myalgia Abnormal x-ray of femur Procedures MRI FEMUR LEFT W WO CONTRAST Conner Brown, ENERGY MANAGER - ENGINEERING PROGRAM ANALYST [place] [id number] Referral ID Status Reason Start Date Expiration Date Visits Re quested Visits Authorized [id number] Closed 09/12/2022 10/12/2022 1 1 Additional Source Comments (unrecognized sect ion and content) No Status Records FoundNo Status Records FoundNo Status Records FoundNo Status Records FoundNo Status Records FoundNo Status Records FoundNo Status Records FoundNo Status Records FoundNo Status Records FoundNo Status Records Found INFORMATION SOURCE (unrecogn ized section and content) DATE CREATED AUTHOR 01/01/2018 [facility] DATE CREATED AUTHOR AUTHOR'S ORGANIZ ATION 01/31/2018 [facility] DATE CREATED AUTHOR AUTHOR'S ORGANIZ ATION 06/19/2018 [facility] DATE CREATED AUTHOR AUTHOR'S ORGANIZ ATION 02/26/2020 [facility] DATE CREATED AUTHOR AUTHOR'S ORGANIZ ATION 11/02/2022 [facility] DATE CREATED AUTHOR AUTHOR'S ORGANIZ ATION 01/27/2023 [facility] DATE CREATED AUTHOR AUTHOR'S ORGANIZ ATION 02/08/2023 [facility] DATE CREATED AUTHOR AUTHOR'S ORGANIZ ATION 08/31/2024 [facility] DATE CREATED AUTHOR AUTHOR'S ORGANIZ ATION 10/11/2024 [facility] DATE CREATED AUTHOR AUTHOR'S ORGANIZ ATION 10/18/2024 [facility] Reason for Visit (unrecogniz ed section and content) Reason Comments Shortness of Breath Pt could not breathe at home tonight. Per EMS pt was struggling to catch breath at home. Reason Comments Shortness of Breath d/c from upstairs ye day. Increased SOB this AM. Took 2 breathing tx at home with no improvement Reason Comments Chest Pain patient to ER with c /o chest pain that woke him up an hour ago Reason Comments Chest Pain Pt brought in by [facility] with c/o chest pain 4/10 constant pain in lower part of shoulder blade. Denies SOB Reason Comments Chest Pain onset x15 min ago, o n/off, pressure radiating to left shoulder Specialty Diagnoses / Procedures Referred By Bita zhou Referred To Contact Radiology Diagnoses Musculoskeletal pain of left thigh Myalgia Abnormal x-ray of femur Procedures MRI FEMUR LEFT W WO CONTRAST Conner Brown, ENERGY MANAGER - ENGINEERING [place] [address] Referral ID Status Reason Start Date Expiration Date Visits Re quested Visits Authorized [id number] Closed 09/12/2022 10/12/2022 1 1 Reason Comments Chest Pain Pt. Complains of kavitha st pain that radiates down Lt. Arm that started a little over an hour ago. Pt given 2 Nitroglycerin and 324mg of ASA in route to ER. Pain 2/10 in chest. Reason Comments Loss of Consciousness Was at the family doctor and had a syncopal episode Specialty Diagnoses / Procedures Referred By Bita zhou Referred To Contact Diagnoses Encounter for screening colonoscopy Encounter for screening colonoscopy [Z12.11] Procedures ID COLON CA SCRN NOT HI RSK IND ID COLONOSCOPY FLX DX W/COLLJ SPEC WHEN PFRMD ID COLONOSCOPY W/BIOPSY SINGLE/MULTIPLE ID COLSC FLX W/RMVL OF TUMOR POLYP LESION SNARE TQ COLONOSCOPY Erwin Lincoln MD [address] [place] [id number] [facility] [address] [place] [address] Referral ID Status Reason Start Date Expiration Date Visits Re quested Visits Authorized [id number] 1 1 Specialty Diagnoses / Procedures Referred By Bita zhou Referred To Contact Physical Therapy Diagnoses Chronic pain of right ankle Primary osteoarthritis of right ankle Chronic pain of right knee Conner Brown, ENERGY MANAGER - ENGINEERING [place] [address] [facility] [address] [place] [id number] Referral ID Status Reason Start Date Expiration Date V isits Requested Visits Authorized [id number] Open Specialty Services Required 08/13/2024 08/13/2025 1 1 Scheduled Active and Recently Administ ered Medications (unrecognized section and content) Medication Order 02/12/2021 02/13/2021 02/14/2021 aspirin chewable tablet 324 mg (COMPLETED) 324 mg, Oral, ONCE, On Mon02/14/21 at 1845, For 1 dose 1841 (Given - Provid er: Carolina Flores, RN) Scheduled Medication Order 03/24/2024 03/25/2024 03/26/2024 cloNIDine (CATAPRES) tablet 0.2 mg (COMPLETED) 0.2 mg, Oral, ONCE, 1 dose, On Mon03/26/24 at 1100 1048 (Given - Provid er: Altagracia Mariscal, MATHIEU) Continuous Medication Order 05/06/2024 05/07/2024 05/08/2024 lactated ringers infusion IntraVENous, at 100 mL/hr, CONTINUOUS, Starting on Mon05/08/24 at 1030, Pre-op (day of surgery) 1002 (New Bag - Prov ider: Hank Wetzel, MATHIEU)1137 (NoRateChange - Provider: Greg Webster APRN - CONCESSIONIST)1154 (Anesthesia Volume Adjustment - Provider: Greg Webster APRN - SETH) Care Teams (unrecognized sec tion and content) Director Internal Audit Relationship Specialty Start Date End Date Susie Vivar ENERGY MANAGER - ENGINEERING PROGRAM ANALYST [address] [place] [address];[address] [place], [place] [id number] PCP - General Family Medicine 05/22/21 Team Status: Active Member Role Status Dates NON STAFF Primary Care Provider Active Alexus Solorzano DO Emergency Provider Active Cesar Gar MD Admit Provider, Attending Provider A ctive Team Status: Inactive Member Role Status Dates Maylin Larson NP Attending Provider Active NON STAFF Primary Care Provider Active Team Status: Active Member Role Status Dates NON STAFF Primary Care Provider Active Team Status: Inactive Member Role Status Dates Alexus Solorzano DO Emergency Provider Active Cesar Gar MD Admit Provider, Attending Provider A ctive NON STAFF Primary Care Provider Active Director Internal Audit Relationship Specialty Start Date End Date Conner Brown ENERGY MANAGER - ENGINEERING PROGRAM ANALYST [address] [place] [address] PCP - General Certified Nurse Practitioner 10/15/21 Director Internal Audit Relationship Specialty Start Date End Date Conner Brown ENERGY MANAGER - ENGINEERING PROGRAM ANALYST [place] [address] PCP - General Certified Nurse Practitioner 10/15/21 Director Internal Audit Relationship Specialty Start Date End Date Conner Brown, [facility] [place] [address] PCP - General Certified Nurse Practitioner 10/15/21 Director Internal Audit Relationship Specialty Start Date End Date Conner Brown, [facility] [place] [address] PCP - General Certified Nurse Practitioner 10/15/21 Director Internal Audit Relationship Specialty Start Date End Date Conner Brown, [facility] [place] [address] PCP - General Certified Nurse Practitioner 10/15/21 Director Internal Audit Relationship Specialty Start Date End Date Conner Brown, [facility] [place] [address] PCP - General Certified Nurse Practitioner 10/15/21 Director Internal Audit Relationship Specialty Start Date End Date Conner Brown, [facility] [place] [address] PCP - General Certified Nurse Practitioner 10/15/21 Director Internal Audit Relationship Specialty Start Date End Date Conner Brown, [facility] [place] [address] PCP - General Certified Nurse Practitioner 10/15/21 Director Internal Audit Relationship Specialty Start Date End Date Conner Brown, [facility] [place] [address] PCP - General Certified Nurse Practitioner 10/15/21 Team Status: Inactive Member Role Status Dates NON STAFF Primary Care Provider Active Start: January 25, 2024 End: January 25, 2024 Maylin Larson NP Attending Provider Active Start: January 25, 2024 End: January 25, 2024 Director Internal Audit Relationship Specialty Start Date End Date Conner Brown ENERGY MANAGER - ENGINEERING PROGRAM ANALYST [address] [place] [address] PCP - General Certified Nurse Practitioner 10/15/21 Director Internal Audit Relationship Specialty Start Date End Date Conner Brown ENERGY MANAGER - ENGINEERING PROGRAM ANALYST [address] [place] [address] PCP - General Certified Nurse Practitioner 10/15/21 Director Internal Audit Relationship Specialty Start Date End Date Conner Brown, ENERGY MANAGER - ENGINEERING PROGRAM ANALYST [address] [place] [address] PCP - General Certified Nurse Practitioner 10/15/21 Director Internal Audit Relationship Specialty Start Date End Date Conner Brown, ENERGY MANAGER - ENGINEERING PROGRAM ANALYST [address] [place] [address] PCP - General Certified Nurse Practitioner 10/15/21 Director Internal Audit Relationship Specialty Start Date End Date Conner Brown, ENERGY MANAGER - ENGINEERING PROGRAM ANALYST [address] [place] [address] PCP - General Certified Nurse Practitioner 10/15/21 Director Internal Audit Relationship Specialty Start Date End Date Conner Brown, ENERGY MANAGER - ENGINEERING PROGRAM ANALYST [address] [place] [address] PCP - General Certified Nurse Practitioner 10/15/21 Director Internal Audit Relationship Specialty Start Date End Date Conner rBown, ENERGY MANAGER - ENGINEERING PROGRAM ANALYST [address] [place] [address] PCP - General Certified Nurse Practitioner 10/15/21 Goals (unrecognized section and content) Goals may be documented in a n alternate section FOR RECORDS PERTAINING TO PATIENTS WHO ARE OR HAVE BEEN ENROLLED IN A CHEMICAL DEPENDENCY/SUBSTANCEABUSE PROGRAM, SOME INFORMATION MAY BE OMITTED. This clinical summary was aggregated from multiple sources. Caution should be exercised in using it in the provision of clinical care. This summary normalizes information from multiple sources, and as a consequence, information in this document may materially change the coding, format and clinical context of patient data. In addition, data may be omitted in some cases. CLINICAL DECISIONS SHOULD BE BASED ON THE PRIMARY CLINICAL RECORDS. [facility]. provides no warranty or guarantee of the accuracy or completeness of information in this document.
== END 2024-12-10 09:03 | disposition home or self-care (01) ==
LOC: CARD 09:02
PROVIDERS: Visit Provider Internal Medicine Interventional Cardiology
DX: I08.0 Rheumatic disorders of both mitral and aortic valves (principal)
CPT/HCPCS: 93306